=== PATIENT | female | born 1940 | race Caucasian/White ===

== ENCOUNTER → 2017-03-29 | Outpatient (CLI) | payer MEDICARE ==
[2017-03-29 12:14] LABS: APPEARANCE,URINE SLIGHTLY-CLOUDY; BILIRUBIN,URINE NEGATIVE (NEGATIVE); CALCIUM OXALATE CRYSTALS,URINE TOO NUMEROUS TO CNT /HPF; COLOR,URINE YELLOW; GLUCOSE, URINE NEGATIVE (NEGATIVE); KETONES,URINE NEGATIVE (NEGATIVE); LEUKOCYTE ESTERASE,URINE TRACE (NEGATIVE); NITRITE,URINE NEGATIVE (NEGATIVE); PROTEIN,URINE NEGATIVE (NEGATIVE); URINE SPECIFIC GRAVITY 1.023; UROBILINOGEN,URINE NEGATIVE mg/dL (<2.0)
[2017-03-29 12:18] LABS: ABSOLUTE EOSINOPHILS # (AUTO) 0.1 10^3/uL (0.0-0.6); ABSOLUTE LYMPHOCYTES (AUTO) 1.9 10^3/uL (0.5-4.7); ABSOLUTE MONOCYTES (AUTO) 0.4 10^3/uL (0.1-1.4); ABSOLUTE NEUT (AUTO) 2.4 10^3/uL (1.7-8.2); BASOPHILS % (AUTO) 0.9 % (0-2); EOSINOPHILS % (AUTO) 2.7 % (0-6); HEMATOCRIT 36.5 % (36.0-47.0); HEMOGLOBIN 12.3 g/dL (12.0-15.5); LYMPHOCYTES % (AUTO) 39.4 % (13-45); MEAN CORPUSCULAR HEMOGLOBIN 31.1 pg (27.0-33.4); MEAN CORPUSCULAR HGB CONC 33.7 g/dL (32.0-36.0); MEAN CORPUSCULAR VOLUME 92 fl (80-97); MONOCYTES % (AUTO) 7.4 % (3-13); PLATELET COUNT 178 10^3/uL (150-450); RED BLOOD COUNT 3.95 10^6/uL (3.72-5.28); RED CELL DISTRIBUTION WIDTH 13.5 % (11.5-14.0); SEGMENTED NEUTROPHILS % (AUTO) 49.6 % (42-78); TOTAL CELLS COUNTED % (AUTO) 100 %; WHITE BLOOD COUNT 4.8 10^3/uL (4.0-10.5)
--- NOTE | 2017-03-29 12:41 | EKG REPORT ---
SEVERITY:- NORMAL ECG - SINUS RHYTHM : Confirmed by: Sheba Faye 29-Mar-2017 12:40:30
[2017-03-29 12:44] LABS: ANION GAP 10 (5-19); BLOOD UREA NITROGEN 19 mg/dL (7-20); CALCIUM 9.9 mg/dL (8.4-10.2); CARBON DIOXIDE 28 mmol/L (22-30); CHLORIDE 103 mmol/L (98-107); GLUCOSE 86 mg/dL (75-110); POTASSIUM 4.6 mmol/L (3.6-5.0); SODIUM 140.5 mmol/L (137-145)
--- NOTE | 2017-03-29 12:48 | RADIOLOGY REPORT (SQ) ---
EXAM DESCRIPTION: CHEST PA/LATERAL COMPLETED DATE/TIME: 03/29/2017 11:38 am REASON FOR STUDY: PRE OP COMPARISON: None. EXAM PARAMETERS: NUMBER OF VIEWS: two views TECHNIQUE: Digital Frontal and Lateral radiographic views of the chest acquired. RADIATION DOSE: NA LIMITATIONS: none FINDINGS: LUNGS AND PLEURA: Biapical pleural-parenchymal scarring. No fluffy alveolar infiltrates w orrisome for edema or pneumonia. No pleural effusion. No pneumothorax. MEDIASTINUM AND HILAR STRUCTURES: No masses or contour abnormalities. HEART AND VASCULAR STRUCTURES: Heart normal size. No evidence for failure. BONES: Osteopenic. No thoracic compression deformity HARDWARE: None in the chest. OTHER: No other significant finding. IMPRESSION: No acute findings TECHNICAL DOCUMENTATION: JOB ID: [id number] [employer]- All Rights Reserved
== END ==
LOC: OD 10:53
PROVIDERS: ATTEND Orthopaedic Surgery
DX: Z01.810 Encounter for preprocedural cardiovascular examination (principal); Z01.812 Encounter for preprocedural laboratory examination; Z01.818 Encounter for other preprocedural examination
CPT/HCPCS: 36415; 71046; 80048; 81001; 85025; 93005; 93010

== ENCOUNTER 2017-04-22 05:16 | Observation (INO) | payer MEDICARE ==
[~2017-04-22 05:16] MED LIST: CEFAZOLIN SODIUM 2 GM in NORMAL SALINE 100 ML IV PRN; LACTATED RINGERS 1000 ML IV PRN; LIDOCAINE 0.5% INJ-PF (5 MG/ML) 50 ML SDV SUBCUT PRN
[2017-04-22] MEDS ORDERED: BUPIVACAINE INJ/PF LIPOSOME/PF 266 MG/20 ML SDV ONE (06:35)
[2017-04-22] MEDS ORDERED: BUPIVACAINE HCL 0.5%-EPI 1:200000 INJ/PF 30 ML VIAL ONE (06:35)
[2017-04-22] MEDS ORDERED: FENTANYL CITRATE INJ/PF 100 MCG/2 ML AMPUL ONE ×2 (06:38→11:02)
[2017-04-22] MEDS ORDERED: LIDOCAINE 2% INJ-PF (20 MG/ML) 10 ML AMPUL ONE (06:38)
[2017-04-22] MEDS ORDERED: EPHEDRINE SULFATE INJ 50 MG/1 ML AMPULE ONE (06:39)
[2017-04-22] MEDS ORDERED: PROPOFOL INJ 200 MG/20 ML VIAL IV ONE (06:40)
[2017-04-22] MEDS ORDERED: DEXAMETHASONE SOD PHOSPHATE INJ 4 MG/1 ML VIAL ONE (06:40)
[2017-04-22] MEDS ORDERED: ACETAMINOPHEN 100 ML IV ONE (06:40)
[2017-04-22] MEDS ORDERED: ONDANSETRON HCL INJ/PF 4 MG/2 ML SDV ONE (06:40)
[2017-04-22] MEDS ORDERED: MIDAZOLAM 2 MG/2 ML INJ ONE (06:45)
[2017-04-22] MEDS ORDERED: PROMETHAZINE HCL INJ 25 MG/1 ML VIAL IV PRN ×2 (09:33)
[2017-04-22] MEDS ORDERED: MEPERIDINE HCL/PF INJ 25 MG/1 ML DISP.SYRIN IV PRN (09:33)
[2017-04-22] MEDS ORDERED: ONDANSETRON HCL INJ/PF 4 MG/2 ML SDV IV PRN ×2 (09:33→10:58)
[2017-04-22] MEDS ORDERED: DIPHENHYDRAMINE HCL 50 MG/ML VIAL IV PRN (09:33)
[2017-04-22] MEDS ORDERED: FENTANYL CITRATE INJ/PF 100 MCG/2 ML AMPUL IV PRN ×2 (09:33)
[2017-04-22] MEDS ORDERED: DEXTROSE 50%-WATER 25 GM/50 ML DISP.SYRIN IV PRN (10:54)
[2017-04-22] MEDS ORDERED: GLUCAGON,HUMAN RECOMB 1 MG INJ SUBCUT PRN (10:54)
[2017-04-22] MEDS ORDERED: DEXTROSE 40% GEL 15 GM TUBE PO PRN ×2 (10:54)
[2017-04-22] MEDS ORDERED: ACETAMINOPHEN 325 MG TABLET PO PRN (10:58)
[2017-04-22] MEDS ORDERED: OXYCODONE-ACETAMINOPHEN 5-325 MG TABLET PO PRN (11:01)
[2017-04-22] MEDS ORDERED: MORPHINE SULFATE 10 MG/ML INJ IV PRN (11:02)
[2017-04-22] MEDS: FENTANYL CITRATE INJ/PF 100 MCG/2 ML AMPUL IV PRN ×4 (11:03→11:30)
[2017-04-22] MEDS: DEXTROSE 50%-WATER 25 GM/50 ML DISP.SYRIN IV PRN ×4 (11:03→11:30)
--- NOTE | 2017-04-22 11:06 | Operative Report ---
Operative Report DATE OF SURGERY: 04/22/17 PREOPERATIVE DIAGNOSIS: Left glenohumeral joint osteoarthritis POSTOPERATIVE DIAGNOSIS: same OPERATION: Left total shoulder arthroplasty SURGEON: DONALDO JONES ANESTHESIA: GA TISSUE REMOVED OR ALTERED: Humeral head COMPLICATIONS: None ESTIMATED BLOOD LOSS: 250 mL INTRAOPERATIVE FINDINGS: As above PROCEDURE: Arthrex total shoulder systemn Medium glenoid 9mm apex stem 46/18mm humeral head Patient received antibiotics in the preop holding area. Patient was transferred to the OR where the patient was successfully intubated. Patient then was secured in a beachchair position. Left shoulder was prepped and draped in a normal sterile surgical fashion. Once timeout was done identifying the right shoulder the correct site I proceeded to use quarter percent Marcaine with epinephrine and injected in the anticipated incision. I used a 10 blade to status my incision and then used hemostasis with electrocautery. I exposed the deltopectoral interval and proceeded to free the cephalic vein and retracted medially with conjoined tendon and retracted deltoid lateral. I reflected the subscapularis tendon off the lesser tuberosity and tagged it with a Vicryl stitch. I proceeded to release capsule to dislocate the shoulder joint. Visualized the Rotator cuff which was intact and the placed the external guide to pablito where I do my humeral head cut. The guide was saying it was 125 . I marked it with the Bovie and then did a freehand of the the humeral head cut. I then proceeded to broach all way up to size 9. Make sure I was not in varus and make sure that the version was between 30 and 40 using the guide. Once I was satisfied I placed a 8 mm guide with a cap to protect the cuts and proceeded to expose the glenoid. The humerus was then reflected posteriorly and glenoid retractors were placed and the glenoid was exposed. Labrum and superior biceps stump was resected exposing the glenoid. I proceeded then to use the glenoid guide to drill and the center portion of the glenoid. I then proceeded to ream until I had bleeding bone. Also satisfied with the size of the glenoid trial and then proceeded to drill the peg holes. A trial glenoid was applied and then retractors removed and the humeral head was exposed. We placed a trial head and proceeded to test range of motion and stability. Once I was satisfied with the appropriate size used , I proceeded to remove all components. I used bulb irrigation to clean the wound. I first removed the glenoid and cemented it in and wait until cement had cured and hardened. Central peg hole did have bone graft applied to it. Any excess cement was removed. I then proceeded to remove the humeral stem and placed the final stem with the sutures already loaded in it. Of note I had placed 2 drill holes in the lesser tuberosity and fed some of the FiberWire through it using a suture passer. Once the glenoid component and stem was seated I trialed with humeral head one more time and then placed the final humeral head component. Irrigation was done at this point. Proceeded to pass the fiberwire throught the subscapularis tendon. Using arthrex guided I repaired the subscapularis tendon and cut remaining strands We approximated the deltoid interval after removing the retractors and closed the subcutaneous tissue with 0 Vicryl and 2- 0 Vicryl. Exparel had been injected deep and then superficially. [place] were used for skin. The extremity was cleaned and then Xeroform 4 x 4 dressing and ABDs pad was applied. I secured it with Medipore tape and then the drapes were removed. Patient was placed in a sling at that point was then placed in a supine position where the patient was extubated and sent to PACU in a stable condition.
[2017-04-22] MEDS ORDERED: MORPHINE SULFATE 10 MG/ML INJ ONE (11:45)
[2017-04-22] MEDS ORDERED: CEFAZOLIN 2 GM/D5W RTU 2 GM/50 ML RTUPB IV PRN (12:00)
[2017-04-22] MEDS: HYDROMORPHONE HCL INJ/PF 2 MG/ML AMPULE IV PRN ×4 (12:54→20:21)
[2017-04-22] MEDS: RINGERS SOLUTION,LACTATED 1,000 ML IV PRN ×2 (12:56→18:25)
[2017-04-22] MEDS: OXYCODONE-ACETAMINOPHEN 5-325 MG TABLET PO PRN (14:04)
[2017-04-22] MEDS ORDERED: CEFAZOLIN SODIUM 2 GM in NORMAL SALINE 100 ML IV SCH (15:00)
[2017-04-22] MEDS ORDERED: GLYCOPYRROLATE INJ 0.4 MG/2 ML VIAL ONE (15:31)
[2017-04-22] MEDS ORDERED: SUCCINYLCHOLINE CHLORIDE INJ 200 MG/10 ML VIAL ONE (15:31)
[2017-04-22] MEDS ORDERED: NEOSTIGMINE METHYLSULFATE 10 MG/10 ML VIAL ONE (15:31)
[2017-04-22] MEDS ORDERED: VECURONIUM BROMIDE INJ 10 MG VIAL IV ONE (15:31)
[2017-04-22] MEDS: SENNOSIDES/DOCUSATE 8.6-50 MG 1 EACH TABLET PO SCH (18:24)
[2017-04-22] MEDS: PROMETHAZINE HCL INJ 25 MG/1 ML VIAL IV PRN (19:53)
[2017-04-22] MEDS: CELECOXIB 200 MG CAPSULE PO SCH (22:05)
[2017-04-23] MEDS: HYDROMORPHONE HCL INJ/PF 2 MG/ML AMPULE IV PRN ×5 (00:34→15:52)
[2017-04-23 04:57] LABS: HEMATOCRIT 30.4 % (36.0-47.0); HEMOGLOBIN 10.4 g/dL (12.0-15.5); MEAN CORPUSCULAR HEMOGLOBIN 30.9 pg (27.0-33.4); MEAN CORPUSCULAR HGB CONC 34.1 g/dL (32.0-36.0); MEAN CORPUSCULAR VOLUME 91 fl (80-97); PLATELET COUNT 141 10^3/uL (150-450); RED BLOOD COUNT 3.35 10^6/uL (3.72-5.28); RED CELL DISTRIBUTION WIDTH 13.6 % (11.5-14.0); WHITE BLOOD COUNT 11.3 10^3/uL (4.0-10.5)
[2017-04-23 05:15] LABS: ANION GAP 10 (5-19); BLOOD UREA NITROGEN 15 mg/dL (7-20); CALCIUM 8.5 mg/dL (8.4-10.2); CARBON DIOXIDE 27 mmol/L (22-30); CHLORIDE 102 mmol/L (98-107); GLUCOSE 117 mg/dL (75-110); POTASSIUM 4.6 mmol/L (3.6-5.0); SODIUM 138.9 mmol/L (137-145)
[2017-04-23] MEDS: CELECOXIB 200 MG CAPSULE PO SCH (10:58)
[2017-04-23] MEDS: SENNOSIDES/DOCUSATE 8.6-50 MG 1 EACH TABLET PO SCH (10:59)
[2017-04-23] MEDS: OXYCODONE-ACETAMINOPHEN 5-325 MG TABLET PO PRN (11:17)
[2017-04-23] MEDS ORDERED: CEFAZOLIN SODIUM 2 GM in NORMAL SALINE 100 ML IV ONE (13:00)
--- NOTE | 2017-04-23 14:00 | PDOC DISCHARGE SUMMARY ---
General - Admit/Disc Date/PCP Admission Date/Primary Care Provider: 04/22/17 05:16 Discharge Date: 04/23/17 - Discharge Diagnosis (1) Status post total shoulder arthroplasty Is this a current diagnosis for this admission?: Yes - Additional Information Resuscitation Status: Full Code Home Medications: No Home Medications 04/21/17 History of Present Illness Patient complains of: Left shoulder pain History of Present Illness: JOURDAN PEREZ is a 76 year old female With known osteoarthritis of the left shoulder. She had limited range of motion. Crepitus. Pain and palpation of the left shoulder. X-ray showing severe degenerative joint disease with osteophyte formation of the left shoulder. After failed conservative treatment patient elected to proceed with left total shoulder arthroplasty on 04/22/2017 has any numbness or tingling or paresthesias. Hospital Course Hospital Course: Patient underwent left total shoulder arthroplasty yesterday on 04/22/2017. Surgery was uneventful. Patient stayed overnight for pain control and observation. She has not required IV narcotics. She has decent pain control with the Percocet although it causes her some nausea. Denies any numbness or tingling or paresthesias or loss of motor function. Vital signs have been stable. Patient will be discharged today to follow-up in 2 weeks. Physical Exam Vital Signs: Temp Pulse Resp BP Pulse Ox 36.8 C 88 18 142/68 H 97 04/23/17 11:17 04/23/17 11:17 04/23/17 11:17 04/23/17 11:17 04/23/17 11:17 Intake & Output 04/22/17 04/23/17 04/24/17 06:59 06:59 06:59 Intake Total 5200 Output Total 250 Balance 4950 Weight 82.2 kg General appearance: PRESENT: no acute distress Eye exam: PRESENT: EOMI, other - Pinpoint pupils symmetric. ABSENT: conjunctival injection Mouth exam: PRESENT: neck supple Respiratory exam: PRESENT: symmetrical, unlabored. ABSENT: accessory muscle use , tachypnea Pulses: PRESENT: normal radial pulses Vascular exam: PRESENT: normal capillary refill Neurological exam: PRESENT: alert, awake, oriented to person, oriented to place , oriented to time Psychiatric exam: PRESENT: appropriate affect, normal mood Adult Front & Back Image: 1 - Dressing is dry clean and intact. Only one small area with some bloody drainage. Mild swelling postoperatively as expected. No ecchymosis. Tender palpation over the shoulder. She has 5 out of 5 motor distally and good sensation to light touch. Good capillary refill. Good radial pulse. Results Laboratory Results: 04/23/17 04:28 04/23/17 04:28 04/23/17 04/23/17 04:28 04:28 WBC 11.3 H RBC 3.35 L Hgb 10.4 L Hct 30.4 L MCV 91 MCH 30.9 MCHC 34.1 RDW 13.6 Plt Count 141 L Sodium 138.9 Potassium 4.6 Chloride 102 Carbon Dioxide 27 Anion Gap 10 BUN 15 Creatinine 0.85 Est GFR ( Amer) > 60 Est GFR (Non-Af Amer) > 60 Glucose 117 H Calcium 8.5 Status: Image reviewed by me Qualifiers - * PATEINT BEING DISCHARGED WITH ANY OF THE FOLLOWING DIAGNOSIS?: No VTE patient discharged on overlapping Therapy?: No Reason(s) for not prescribing Overlap Therapy:: Not indicated Plan Discharge Plan: Patient is a 76-year-old female who is being discharged today after yesterday undergoing a left total shoulder arthroplasty. Nonweightbearing left upper extremity. Use sling at all times. Okay to change dressing in 5 days and shower after dressing is removed. Structured to do pendulum exercises. Limit external rotation. Follow-up in 10-14 days in the office. Call back if there is any redness erythema or any purulent drainage. Also told to call if any fevers or chills.
[2017-04-23] MEDS: PROMETHAZINE HCL INJ 25 MG/1 ML VIAL IV PRN (15:51)
[2017-04-23 16:02] VITALS: BP 169/76
== END 2017-04-23 16:48 | disposition home or self-care (01) ==
LOC: INTOOBSV 05:16 → INOR 05:16 → 3W 12:31
PROVIDERS: ADMIT Orthopaedic Surgery; ATTEND Orthopaedic Surgery
PROC: 0RRK0JZ Replacement of Left Shoulder Joint with Synthetic Substitute, Open Approach (ICD-10-PCS; principal; 2017-04-22 07:30)
DX: M19.012 Primary osteoarthritis, left shoulder (principal); M24.112 Other articular cartilage disorders, left shoulder; M25.812 Other specified joint disorders, left shoulder
CPT/HCPCS: 23472; 86900; 86901; 36415 ×2; 86850; 85027; 80048; 88304 ×2; 88311; 94799; 97110 ×2; 97167; G0378 ×2; G0379; A9270 ×6; J2250; J3490 ×6; J0690 ×2; J1100; J3010; J1170 ×2; J2550 ×2; J0330; J2405; J7120; J2704; J0131; C9290; G8987; G8988; 01630; J2270

== ENCOUNTER 2017-05-03 17:49 | Inpatient (IN) | payer MEDICARE ==
[~2017-05-03 17:49] MED LIST changes: -CEFAZOLIN SODIUM 2 GM in NORMAL SALINE 100 ML IV PRN; +GLYCOPYRROLATE INJ 0.4 MG/2 ML VIAL ONE; -LACTATED RINGERS 1000 ML IV PRN; -LIDOCAINE 0.5% INJ-PF (5 MG/ML) 50 ML SDV SUBCUT PRN; +NEOSTIGMINE METHYLSULFATE 10 MG/10 ML VIAL ONE; +SUCCINYLCHOLINE CHLORIDE INJ 200 MG/10 ML VIAL ONE; +VECURONIUM BROMIDE INJ 10 MG VIAL IV ONE
[2017-05-03] MEDS ORDERED: ONDANSETRON HCL INJ/PF 4 MG/2 ML SDV IV ONE (19:30)
[2017-05-03] MEDS ORDERED: NORMAL SALINE 1000 ML 1,000 ML IV ONE (19:30)
[2017-05-03] MEDS ORDERED: FENTANYL CITRATE INJ/PF 100 MCG/2 ML AMPUL IV ONE ×2 (19:44→21:20)
--- NOTE | 2017-05-03 19:46 | ER Document Report ---
ED General - General Chief Complaint: Constipation Stated Complaint: ABDOMINAL PAIN Notes: Patient is a 76-year-old female status post left shoulder surgery approximately 2 weeks ago who presents with 18 hours of progressively worsening generalized abdominal pain as well as vomiting. The patient has not had a bowel movement in 8 days per her report and has been trying Colace as well as [id number] laxatives without any improvement. However, she states this morning she had an abrupt onset of severe, constant, generalized abdominal pain worse towards the right lower abdomen. She states that that pain is gotten progressively worse since onset. She notes associated severe vomiting and inability to tolerate and take all day. She denies any history of similar symptoms in the past. She has not seen her general doctor regarding today's concerns. She has no prior history of abdominal surgeries in the past. History is otherwise somewhat limited secondary to the acuity of this patient's presentation. TRAVEL OUTSIDE OF THE [place] IN LAST 30 DAYS: No - Related Data Allergies/Adverse Reactions: codeine Allergy (Verified 04/05/17 10:31) Sulfa (Sulfonamide Antibiotics) Allergy (Verified 04/05/17 10:31) Past Medical History - General Information source: Patient, Relative - Social History Smoking Status: Never Smoker Frequency of alcohol use: None Drug Abuse: None Lives with: Family Family History: Reviewed & Not Pertinent Patient has suicidal ideation: No Patient has homicidal ideation: No - Past Medical History Cardiac Medical History: Denies: Hx Hypercholesterolemia, Hx Hypertension Pulmonary Medical History: Denies: Hx Sleep Apnea Renal/ Medical History: Denies: Hx Peritoneal Dialysis Musculoskeltal Medical History: Reports Hx Arthritis - shoulders, Denies Hx Fibromyalgia, Denies Hx Muscular Dystrophy Traumatic Medical History: Denies: Hx Fractures Past Surgical History: Denies: Hx Appendectomy, Hx Bowel Surgery, Hx Section, Hx Cholecystectomy, Hx Coronary Artery Bypass Graft, Hx Gastric Bypass Surgery, Hx Herniorrhaphy, Hx Hysterectomy, Hx Mastectomy, Hx Pacemaker, Hx Tonsillectomy, Hx Tubal Ligation Review of Systems - Review of Systems Notes: Constitutional: Negative for fever. HENT: Negative for sore throat. Eyes: Negative for visual changes. Cardiovascular: Negative for chest pain. Respiratory: Negative for shortness of breath. Gastrointestinal: Positive for severe abdominal pain and vomiting Genitourinary: Negative for dysuria. Musculoskeletal: Negative for back pain. Skin: Negative for rash. Neurological: Negative for headaches, weakness or numbness. 10 point ROS negative except as marked above and in HPI. Physical Exam - Vital signs Vitals: Resp Pulse Ox 29 H 98 05/03/17 20:31 05/03/17 20:31 Interpretation: Tachycardic, Tachypneic Notes: PHYSICAL EXAMINATION: GENERAL: Ill in appearance, pale, diaphoretic, appears to be in extreme pain HEAD: Atraumatic, normocephalic. EYES: Pupils equal round and reactive to light, extraocular movements intact, sclera anicteric, conjunctiva are normal. ENT: nares patent, oropharynx clear without exudates. Dry mucous membranes. NECK: Normal range of motion, supple without lymphadenopathy LUNGS: Moderate tachypnea. No wheezes or rales. HEART: Regular rate and rhythm without murmurs ABDOMEN: Firm, rigid abdomen. Diffuse involuntary guarding. Worrisome for a surgical abdomen EXTREMITIES: no pitting or edema. No cyanosis. NEUROLOGICAL: No focal neurological deficits. Moves all extremities spontaneously PSYCH: Normal mood, normal affect. SKIN: Pale, cool, diaphoretic skin Course - Re-evaluation Re-evalutation: 05/03/17 19:45 Patient presents with a very worrisome abdominal exam with diffuse abdominal rigidity, involuntary guarding, and diffuse severe tenderness. I am extremely concerned that this patient may have a bowel perforation or very high-grade bowel obstruction. She has been vomiting all day today but has not had a bowel movement in 8 days. However her abdominal exam is very unusual for just constipation. Given this concern, I have immediately requested the patient go to CT scan and will wave waiting for laboratories as this is a very time sensitive diagnosis given her overall very ill appearance and abdominal examination. She is currently critically ill, will require frequent reassessments. I will contact the radiologist as soon as a CT scan is complete so we can review the images and determine if the patient has an acute surgical diagnosis. 05/03/17 20:11 I have spoken to the radiologist community organization director who confirms my concern that the patient does have an acute bowel perforation. There is free air as well as free fluid throughout her abdomen. I immediately contacted Dr. Vazquez, unfortunately he is currently putting a central line in. I relayed to the nurse caring the patient with Dr. Vazquez that this patient is critically ill and his services are needed immediately. Will start IV Zosyn. I have updated the patient and her son the bedside. 05/03/172029 Dr. Vazquez is at the bedside. Patient remains hemodynamically within normal limits but continues to have a surgical abdomen 2100-patient will go to the operating room - Vital Signs Vital signs: Temp Pulse Resp BP Pulse Ox 98.5 F 155 H 14 99/64 L 100 05/04/17 00:52 05/04/17 00:52 05/04/17 02:00 05/04/17 01:40 05/04/17 02:00 - Laboratory Result Diagrams: 05/03/17 20:15 05/03/17 20:15 Laboratory results interpreted by me: 05/03/17 05/03/17 20:15 20:15 WBC 2.4 L Hgb 11.9 L Hct 35.1 L Abs Lymphs (Manual) 0.4 L Carbon Dioxide 17 L BUN 26 H Creatinine 1.26 H Est GFR ( Amer) 50 L Est GFR (Non-Af Amer) 42 L Glucose 147 H Calcium 8.2 L Direct Bilirubin 0.5 H Total Protein 5.7 L Albumin 3.1 L - Diagnostic Test Radiology reviewed: Image reviewed, Reports reviewed Radiology results interpreted by me: 05/03/17 20:12 CT of the pelvis: Concerning for free air and free fluid in the abdomen with associated colonic distention Critical Care Note - Critical Care Note Total time excluding time spent on procedures (mins): 37 Comments: Critical care time spent obtaining history from patient or surrogate, discussions with consultants, development of treatment plan with patient or surrogate, evaluation of patient's response to treatment, examination of patient , ordering and performing treatments and interventions, ordering and review of laboratory studies, re-evaluation of patient's condition, ordering and review of radiographic studies and review of old charts Discharge - Discharge Clinical Impression: Perforated abdominal viscus, Surgical abdomen, Persistent vomiting Condition: Critical Disposition: ADMITTED INPATIENT Admitting Provider: Ceciist Smith Vazquez Unit Admitted: OR
[2017-05-03] MEDS ORDERED: PIPERACILLIN/TAZOBACTAM 3.375 GM VIAL IV ONE (20:10)
--- NOTE | 2017-05-03 20:24 | RADIOLOGY REPORT (SQ) ---
EXAM DESCRIPTION: CT ABD/PELVIS WITH IV ONLY COMPLETED DATE/TIME: 05/03/2017 8:06 pm REASON FOR STUDY: Rigid abdomen, eval perforation, obstruction COMPARISON: None. TECHNIQUE: CT scan of the abdomen and pelvis performed using helical scanning technique with dynamic intravenous contrast injection. No oral contrast. Images reviewed with lung, soft tissue, and bone windows. Reconstructed coronal and sagittal MPR images reviewed. Delayed images for evaluation of the urinary system also acquired. All images stored on PACS. All CT scanners at this facility use dose modulation, iterative reconstruction, and/or weight based d osing when appropriate to reduce radiation dose to as low as reasonably achievable (ALARA). [facility]: Dose Right [facility]: CareDose [facility]: Dose Right [facility]: Teradose 4D [facility]: [employer] Safety Step CONTRAST TYPE AND DOSE: contrast/concentration: Isovue 370.00 mg/ml; Total Contrast Delivered: 81.0 ml; Total Saline Delivered: 63.0 ml RENAL FUNCTION: BUN 15 creatinine 0.85 on 04/23/2017 RADIATION DOSE: CT Rad equipment meets quality standard of care and radiation dose reduction techniq ues were employed. CTDIvol: 8.8 - 12.4 mGy. DLP: 1211 mGy-cm.. LIMITATIONS: None. FINDINGS: LOWER CHEST: No significant findings. No nodules or infiltrates. LIVER: Normal size. No masses. No dilated ducts. SPLEEN: Normal size. No focal lesions. PANCREAS: No masses. No significant calcifications. No adjacent inflammation or peripancreatic fluid collections. Pancreatic duct not dilated. GALLBLADDER: No identified stones by CT criteria. No inflammatory changes to suggest cholecystitis. ADRENAL GLANDS: No significant masses or asymmetry. RIGHT KIDNEY AND URETER: No solid masses. No significant calcifications. No hydronephrosis or hyd roureter. LEFT KIDNEY AND URETER: No solid masses. No significant calcifications. No hydronephrosis or hydr oureter. AORTA AND VESSELS: No aneurysm. No dissection. Renal arteries, SMA, celiac without stenosis. RETROPERITONEUM: No retroperitoneal adenopathy, hemorrhage or masses. BOWEL AND PERITONEAL CAVITY: There is free air and fluid in the peritoneal cavity. No bowel mass is seen. APPENDIX: Not identified. PELVIS: No mass. No free fluid. Normal bladder. ABDOMINAL WALL: No masses. No hernias. BONES: No significant or acute findings. OTHER: No other significant finding. IMPRESSION: There is free air and fluid in the abdomen suggestive of gastrointestinal perforation. Site is uncertain. TECHNICAL DOCUMENTATION: JOB ID: [id number] Quality ID # [id number]: Final reports with documentation of one or more dose reduction techniques (e.g., Au tomated exposure control, adjustment of the mA and/or kV according to patient size, use of iterative reconstruction technique) 2010 [employer]- All Rights Reserved Reading location - IP/workstation name: [email or web address]
[2017-05-03 20:34] LABS: HEMATOCRIT 35.1 % (36.0-47.0); HEMOGLOBIN 11.9 g/dL (12.0-15.5); MEAN CORPUSCULAR HEMOGLOBIN 30.8 pg (27.0-33.4); MEAN CORPUSCULAR HGB CONC 33.9 g/dL (32.0-36.0); MEAN CORPUSCULAR VOLUME 91 fl (80-97); PLATELET COUNT 274 10^3/uL (150-450); RED BLOOD COUNT 3.86 10^6/uL (3.72-5.28); RED CELL DISTRIBUTION WIDTH 13.4 % (11.5-14.0); WHITE BLOOD COUNT 2.4 10^3/uL (4.0-10.5)
[2017-05-03 20:51] LABS: ALBUMIN 3.1 g/dL (3.5-5.0); ALKALINE PHOSPHATASE 55 U/L (38-126); BILIRUBIN,DIRECT 0.5 mg/dL (0.0-0.4); BILIRUBIN,TOTAL 0.7 mg/dL (0.2-1.3); BLOOD UREA NITROGEN 26 mg/dL (7-20); CALCIUM 8.2 mg/dL (8.4-10.2); GLUCOSE 147 mg/dL (75-110); LIPASE 31.7 U/L (23-300); POTASSIUM 3.6 mmol/L (3.6-5.0); TOTAL PROTEIN 5.7 g/dL (6.3-8.2)
--- NOTE | 2017-05-03 20:54 | PDOC H&P ---
History of Present Illness Admission Date/PCP: 05/03/17 Patient complains of: severe abdominal pains with N/V History of Present Illness: JOURDAN PEREZ is a 76 year old female suddenly c/o severe diffuse abdominal pains early this morning associated with N/V. Ct abd/pelvis showed free air. Past Medical History Cardiac Medical History: Denies: Hyperlipidema, Hypertension Pulmonary Medical History: Denies: Sleep Apnea Musculoskeltal Medical History: Reports: Arthritis - shoulders Denies: Fibromyalgia Past Surgical History Past Surgical History: Reports: Other - left shoulder surgery by Dr Valdez . Denies: Amputation, Appendectomy, Section, Cholecystectomy, Coronary Artery Bypass Graft, Gastric Bypass Surgery, Herniorrhaphy, Hysterectomy, Mastectomy, Pacemaker, Tonsillectomy, Tubal Ligation Social History Smoking Status: Unknown if Ever Smoked Frequency of Alcohol Use: Rare Drugs: None Hx Prescription Drug Abuse: No Family History Parental Family History Reviewed: Yes Children Family History Reviewed: No Sibling(s) Family History Reviewed.: No Medication/Allergy Home Medications: Ondansetron HCl [Zofran 4 mg Tablet] 1 - 2 tab PO Q6HP PRN #20 tablet 04/23/17 Oxycodone HCl/Acetaminophen [Percocet 5-325 mg Tablet] 1 - 2 tab PO ASDIR PRN # 40 tablet 04/23/17 Allergies/Adverse Reactions: codeine Allergy (Verified 04/05/17 10:31) Sulfa (Sulfonamide Antibiotics) Allergy (Verified 04/05/17 10:31) Review of Systems Constitutional: PRESENT: anorexia Eyes: PRESENT: other - no viz/hearing changes Cardiovascular: PRESENT: other - no chest pains, SOB Gastrointestinal: PRESENT: abdominal pain - severe, nausea, vomiting Genitourinary: PRESENT: other - no dysuria Musculoskeletal: PRESENT: other - left shoulder surgery Neurological: PRESENT: other - no seizures Psychiatric: PRESENT: anxiety Hematologic/Lymphatic: PRESENT: other - no easy bruising Physical Exam Vital Signs: Intake & Output 05/02/17 05/03/17 05/04/17 06:59 06:59 06:59 Weight 73.936 kg General appearance: PRESENT: severe distress Eye exam: PRESENT: conjunctiva pink Mouth exam: PRESENT: dry mucosa Neck exam: PRESENT: full ROM Respiratory exam: PRESENT: clear to auscultation deonna Cardiovascular exam: PRESENT: tachycardia Pulses: PRESENT: normal radial pulses Vascular exam: PRESENT: normal capillary refill GI/Abdominal exam: PRESENT: rigid, tenderness Rectal exam: PRESENT: deferred Extremities exam: PRESENT: full ROM, other - left shoulder janene in place Musculoskeletal exam: PRESENT: ambulatory Neurological exam: PRESENT: alert, oriented to person, oriented to place, oriented to time, oriented to situation Psychiatric exam: PRESENT: anxious Skin exam: PRESENT: normal color, warm Results Laboratory Results: 05/03/17 20:15 Seg Neutrophils % Not Reportable Lymphocytes % Not Reportable Monocytes % Not Reportable Eosinophils % Not Reportable Basophils % Not Reportable Absolute Neutrophils Not Reportable Absolute Lymphocytes Not Reportable Absolute Monocytes Not Reportable Absolute Eosinophils Not Reportable Absolute Basophils Not Reportable Impressions: Abdomen/Pelvis CT 05/03/17 19:43 IMPRESSION: There is free air and fluid in the abdomen suggestive of gastrointestinal perforation. Site is uncertain. Assessment & Plan - Diagnosis (1) Perforated abdominal viscus Is this a current diagnosis for this admission?: Yes - Time Time Spent: 30 to 50 Minutes - Inpatient Certification Medical Necessity: Need For IV Fluids, Need for Pain Control, Need for IV Antibiotics, Need for Surgery - Plan Summary Plan Summary: Hydrate IV antibiotics For Exploratory laparotomy repair of perforation
[2017-05-03 20:59] LABS: ANION GAP 18 (5-19); CARBON DIOXIDE 17 mmol/L (22-30); CHLORIDE 104 mmol/L (98-107); SODIUM 138.6 mmol/L (137-145)
[2017-05-03] MEDS ORDERED: FENTANYL CITRATE INJ/PF 250 MCG/5 ML AMPULE ONE (21:04)
[2017-05-03] MEDS ORDERED: MIDAZOLAM 2 MG/2 ML INJ ONE (21:04)
[2017-05-03] MEDS ORDERED: LIDOCAINE 2% INJ-PF (20 MG/ML) 10 ML AMPUL ONE (21:04)
[2017-05-03] MEDS ORDERED: EPHEDRINE SULFATE INJ 50 MG/1 ML AMPULE ONE (21:05)
[2017-05-03] MEDS ORDERED: DEXAMETHASONE SOD PHOSPHATE INJ 4 MG/1 ML VIAL ONE (21:05)
[2017-05-03] MEDS ORDERED: ACETAMINOPHEN 100 ML IV ONE (21:05)
[2017-05-03] MEDS ORDERED: PROPOFOL INJ 200 MG/20 ML VIAL IV ONE (21:05)
[2017-05-03] MEDS ORDERED: ONDANSETRON HCL INJ/PF 4 MG/2 ML SDV ONE (21:05)
[2017-05-03 21:11] LABS: ABSOLUTE LYMPHOCYTES# (MANUAL) 0.4 10^3/uL (0.5-4.7); ABSOLUTE MONOCYTES # (MANUAL) 0.2 10^3/uL (0.1-1.4); ABSOLUTE NEUTROPHILS# (MANUAL) 1.8 10^3/uL (1.7-8.2); BASOPHILS % (MANUAL) 0 % (0-2); EOSINOPHILS % (MANUAL) 0 % (0-6); LYMPHOCYTES % (MANUAL) 16 % (13-45); MONOCYTES % (MANUAL) 7 % (3-13); SEGMENTED NEUTROPHILS % (MAN) 77 % (42-78); TOTAL CELLS COUNTED 100
[2017-05-03] MEDS ORDERED: FENTANYL CITRATE INJ/PF 100 MCG/2 ML AMPUL ONE (21:11)
[2017-05-03 21:12] LABS: PLATELET COMMENT ADEQUATE; TOXIC GRANULATION SLIGHT
[2017-05-03 21:18] LABS: ALANINE AMINOTRANSFERASE 26 U/L (9-52)
[2017-05-03 21:29] LABS: ASPARTATE AMINO TRANSFERASE 36 U/L (14-36)
[2017-05-03] MEDS ORDERED: PROMETHAZINE HCL INJ 25 MG/1 ML VIAL IV PRN ×2 (22:53)
[2017-05-03] MEDS ORDERED: FENTANYL CITRATE INJ/PF 100 MCG/2 ML AMPUL IV PRN ×3 (22:53)
[2017-05-03] MEDS ORDERED: DIPHENHYDRAMINE HCL 50 MG/ML VIAL IV PRN (22:53)
[2017-05-03] MEDS ORDERED: ONDANSETRON HCL INJ/PF 4 MG/2 ML SDV IV PRN (22:53)
[2017-05-03] MEDS ORDERED: MEPERIDINE HCL/PF INJ 25 MG/1 ML DISP.SYRIN IV PRN (22:53)
[2017-05-03] MEDS ORDERED: METRONIDAZOLE 500 MG/NS RTU 100 ML IV ONE (23:48)
[2017-05-04] MEDS ORDERED: PROPOFOL 100 ML IV ONE (00:38)
[2017-05-04] MEDS ORDERED: DEXTROSE 40% GEL 15 GM TUBE PO PRN ×2 (01:24)
[2017-05-04] MEDS ORDERED: DEXTROSE 50%-WATER 25 GM/50 ML DISP.SYRIN IV PRN ×2 (01:24)
[2017-05-04] MEDS ORDERED: NORMAL SALINE 1000 ML 1,000 ML IV ONE (01:24)
[2017-05-04] MEDS ORDERED: GLUCAGON,HUMAN RECOMB 1 MG INJ SUBCUT PRN (01:24)
[2017-05-04 01:41] LABS: ARTERIAL BLOOD BASE EXCESS -6.2 mmol/L; ARTERIAL BLOOD H2CO3 1.04 mmol/L (1.05-1.35); ARTERIAL BLOOD HCO3 18.6 mmol/L (20-26); ARTERIAL BLOOD O2 SATURATION 95.9 % (94-98); ARTERIAL BLOOD PCO2 34.5 mmHg (35-45); ARTERIAL BLOOD PH 7.35 (7.35-7.45); ARTERIAL BLOOD PO2 83.5 mmHg (80-100); ARTERIAL BLOOD TOTAL CO2 19.7 mmol/L (21-25)
[2017-05-04 01:43] LABS: ARTERIAL BLOOD FIO2 35%
[2017-05-04 02:10] LABS: APPEARANCE,URINE CLEAR; BILIRUBIN,URINE NEGATIVE (NEGATIVE); COLOR,URINE YELLOW; GLUCOSE, URINE NEGATIVE (NEGATIVE); KETONES,URINE NEGATIVE (NEGATIVE); LEUKOCYTE ESTERASE,URINE NEGATIVE (NEGATIVE); NITRITE,URINE NEGATIVE (NEGATIVE); PROTEIN,URINE NEGATIVE (NEGATIVE); URINE SPECIFIC GRAVITY 1.039
--- NOTE | 2017-05-04 02:49 | OPERATIVE REPORT E ---
Operative Report NAME: JOURDAN PEREZ : 1940 AGE: 76Y DATE OF SURGERY: 05/03/2017 ROOM: 612 PREOPERATIVE DIAGNOSIS: PERFORATED BOWEL. POSTOPERATIVE DIAGNOSIS: PERFORATED SIGMOID COLON. PROCEDURE: The procedure done was exploratory laparotomy, resection of sigmoid colon, sigmoid colostomy, and a Bianchi pouch. SURGEON: ZOEY XIE M.D. ANESTHESIA: General. INDICATION: This 76-year-old female complained of severe, diffuse, lower abdominal pains early this morning associated with nausea and vomiting. She went to the emergency room, where a CT scan of the abdomen and pelvis revealed free air. DESCRIPTION OF PROCEDURE: After adequate general anesthesia, the patient was placed in supine position and the abdomen prepped and draped in the usual sterile fashion. The patient had mild hypotension and responded to IV fluids. Appropriate timeout was then called. Next, a midline incision was made from the epigastric area to just below the umbilicus. The abdominal cavity was then entered. There was a lot of air that released on opening the peritoneum. There was also a lot of food debris and yellowish fluid. No evidence of perforation in the gastric duodenal area. Further exploration of the pelvic area revealed more debris, and finally, the sigmoid colon was palpated and there were hard stools stools in the sigmoid colon just before the rectum. There is a large perforation in the anti mesenteric area roughly measuring about 2 cm in diameter. The abdominal incision was then further extended distally to just about the symphysis pubis to gain better exposure On further exploration, there was at least 1 large, formed stool noted in the abdominal cavity, roughly measuring about 2.5 cm in diameter. Smaller stools were noted in the pelvic area. The abdominal cavity was then copiously irrigated with at least 80 L of saline until the return flow is clear. Next, the sigmoid colon was then divided proximally about 15 cm from the perforation, with the use of a SREEDHAR. The mesentery was then divided with the use of LigaSure. The sigmoid colon was then divided just above the peritoneal reflection using a Contour stapling device. One end of the staple site has about less then a half centimeter of opening which was closed with 2-0 prolene which was cut long so as to be a guide when colostomy is put back. There was a lot of stool and fluid around the pelvis. This most likely a fairly recent perforation. Following this, an end-sigmoid colostomy was then prepared by dissecting through the white line of Toldt and dividing the mesentery to allow lifting up of the end sigmoid above the skin. Prior to closing the fascia, the colostomy site was prepared by removing the circumferential skin, about 3 cm in diameter, and dividing the fascia and muscle in a cruciate fashion, allowing at least 2 fingers through the defect. Next, the sigmoid was then passed through the defect and a good length of bowel above the skin. Following this, the fascia incision was then closed with running suture using #1 single-arm PDS starting at both ends and tying the 2 sutures just below the umbilicus. The incision was actually from the xiphoid down to the symphysis pubis. The subcutaneous layer was then irrigated, and then the skin was closed with janene. Telfa harlan soaked in Betadine were placed in between the staple lines. A dressing was placed over the main incision site Attention was then directed to the preparation of the colostomy.There was extra sigmoid colon that was further trimmed, and the colostomy was then matured by suturing full thickness of the colonic edge to the dermis in circumferential fashion. The colostomy was viable . A colostomy bag was placed over the sigmoid. Sterile dressings were placed over the incision site. The patient tolerated the procedure well. Needle, instrument, and sponge counts were all correct. Estimated blood loss about 100 mL. Patient transferred to the intensive care unit still intubated, in guarded condition. DICTATING PHYSICIAN: ZOEY XIE M.D. [id number] PHY#: [id number] ID: [id number] JOB#: [id number] ACCT: [id number] cc:ZOEY XIE M.D. > MTDD
--- NOTE | 2017-05-04 04:12 | RADIOLOGY REPORT (SQ) ---
EXAM DESCRIPTION: CHEST SINGLE VIEW CLINICAL HISTORY: 76 years Female, ET placement COMPARISON: 2.5.18. CT, 05/03/2017, report only. NUMBER OF VIEWS/TECHNIQUE: 1/AP LIMITATIONS: None. FINDINGS: Small free air under the right hemidiaphragm consistent with CT one day prior. Adequate appearing endotracheal tube tip is 3.8 cm from the farhan, likely adequate appearing enteric tube partially obscured distally, normal cardiac silhouette, left proximal humeral arthroplasty, and intact bony thorax. IMPRESSION: 1. Small free air under the right hemidiaphragm consistent with CT from one evening prior. 2. Interval intubation.
[2017-05-04] MEDS ORDERED: FENTANYL CITRATE INJ/PF 100 MCG/2 ML AMPUL ONE (04:25)
[2017-05-04] MEDS: FENTANYL CITRATE INJ/PF 100 MCG/2 ML AMPUL INJ PRN ×4 (04:26→15:03)
[2017-05-04] MEDS: NORMAL SALINE 1000 ML 1,000 ML IV PRN ×4 (04:27→20:35)
[2017-05-04 04:51] LABS: ABSOLUTE LYMPHOCYTES (AUTO) 1.1 10^3/uL (0.5-4.7); ABSOLUTE MONOCYTES (AUTO) 0.4 10^3/uL (0.1-1.4); ABSOLUTE NEUT (AUTO) 4.1 10^3/uL (1.7-8.2); BASOPHILS % (AUTO) 0.1 % (0-2); HEMATOCRIT 32.7 % (36.0-47.0); HEMOGLOBIN 10.7 g/dL (12.0-15.5); LYMPHOCYTES % (AUTO) 20.1 % (13-45); MEAN CORPUSCULAR HEMOGLOBIN 30.2 pg (27.0-33.4); MEAN CORPUSCULAR HGB CONC 32.7 g/dL (32.0-36.0); MEAN CORPUSCULAR VOLUME 92 fl (80-97); MONOCYTES % (AUTO) 6.8 % (3-13); PLATELET COUNT 274 10^3/uL (150-450); RED BLOOD COUNT 3.54 10^6/uL (3.72-5.28); RED CELL DISTRIBUTION WIDTH 13.7 % (11.5-14.0); TOTAL CELLS COUNTED % (AUTO) 100 %
[2017-05-04 04:55] LABS: WHITE BLOOD COUNT 5.6 10^3/uL (4.0-10.5)
[2017-05-04] MEDS: METRONIDAZOLE 500 MG/NS RTU 100 ML IV SCH ×4 (05:07→23:42)
[2017-05-04] MEDS: ONDANSETRON HCL INJ/PF 4 MG/2 ML SDV IV PRN (05:15)
[2017-05-04 05:27] LABS: ALANINE AMINOTRANSFERASE 39 U/L (9-52); ALBUMIN 2.4 g/dL (3.5-5.0); ALKALINE PHOSPHATASE 45 U/L (38-126); ANION GAP 15 (5-19); ASPARTATE AMINO TRANSFERASE 39 U/L (14-36); BILIRUBIN,DIRECT 0.3 mg/dL (0.0-0.4); BILIRUBIN,TOTAL 0.3 mg/dL (0.2-1.3); BLOOD UREA NITROGEN 25 mg/dL (7-20); CALCIUM 7.6 mg/dL (8.4-10.2); CARBON DIOXIDE 16 mmol/L (22-30); CHLORIDE 117 mmol/L (98-107); GLUCOSE 137 mg/dL (75-110); POTASSIUM 3.6 mmol/L (3.6-5.0); TOTAL PROTEIN 4.5 g/dL (6.3-8.2)
[2017-05-04] MEDS: PROPOFOL 100 ML IV PRN ×3 (06:31→21:44)
[2017-05-04 06:54] LABS: ARTERIAL BLOOD BASE EXCESS -5.4 mmol/L; ARTERIAL BLOOD HCO3 18.3 mmol/L (20-26); ARTERIAL BLOOD PO2 154.7 mmHg (80-100); ARTERIAL BLOOD TOTAL CO2 19.3 mmol/L (21-25)
[2017-05-04 06:55] LABS: ARTERIAL BLOOD FIO2 35%
[2017-05-04] MEDS: CIPROFLOXACIN 400 MG/D5W RTU 400 MG/200 ML RTUPB IV SCH ×2 (09:43→21:05)
[2017-05-04] MEDS: FAMOTIDINE INJ/PF 20 MG/2 ML SDV IV SCH ×2 (09:57→21:04)
[2017-05-04] MEDS ORDERED: ENOXAPARIN SODIUM INJ 40 MG/0.4 ML DISP.SYRIN SUBCUT SCH (10:00)
[2017-05-04] MEDS: ENOXAPARIN SODIUM INJ 40 MG/0.4 ML DISP.SYRIN SUBCUT SCH (13:01)
--- NOTE | 2017-05-04 15:30 | PDOC CONSULTATION ---
Consultation Consult Date: 05/04/17 Attending physician:: ZOEY XIE Consult reason:: resp failure History of Present Illness Admission Date/PCP: 05/03/17 21:12 History of Present Illness: JOURDAN PEREZ is a 76 year old female suddenly c/o severe diffuse abdominal pains early this morning associated with N/V. Ct abd/pelvis showed free air.Patient was subsequently taken to the operating room for a perforation of viscus and is currently in the ICU intubated and sedated. Past Medical History Cardiac Medical History: Denies: Hyperlipidema, Hypertension Pulmonary Medical History: Denies: Sleep Apnea Musculoskeltal Medical History: Reports: Arthritis - shoulders Denies: Fibromyalgia Past Surgical History Past Surgical History: Reports: Other - left shoulder surgery by Dr Valdez . Denies: Amputation, Appendectomy, Section, Cholecystectomy, Coronary Artery Bypass Graft, Gastric Bypass Surgery, Herniorrhaphy, Hysterectomy, Mastectomy, Pacemaker, Tonsillectomy, Tubal Ligation Social History Lives with: Family Smoking Status: Never Smoker Frequency of Alcohol Use: Occasional Hx Recreational Drug Use: No Drugs: None Hx Prescription Drug Abuse: No - Advance Directive Resuscitation Status: Full Code Family History Parental Family History Reviewed: No Children Family History Reviewed: No Sibling(s) Family History Reviewed.: No Medication/Allergy Home Medications: Ibuprofen [Motrin 800 mg Tablet] 800 mg PO Q8HP PRN 05/04/17 Oxycodone HCl/Acetaminophen [Percocet 5-325 mg Tablet] 1 tab PO Q4HP PRN Allergies/Adverse Reactions: codeine Allergy (Verified 04/05/17 10:31) Sulfa (Sulfonamide Antibiotics) Allergy (Verified 04/05/17 10:31) Review of Systems ROS unobtainable: Due to endotracheal tube Physical Exam Vital Signs: Temp Pulse Resp BP Pulse Ox 98.6 F 155 H 23 H 105/61 100 05/04/17 06:00 05/04/17 00:52 05/04/17 06:00 05/04/17 05:59 05/04/17 06:00 Intake & Output 05/03/17 05/04/17 05/05/17 06:59 06:59 06:59 Intake Total 34603 Output Total 87091 Balance 1285 Weight 77.2 kg General appearance: PRESENT: no acute distress, disheveled, well-developed. ABSENT: cooperative Head exam: PRESENT: atraumatic, normocephalic Eye exam: PRESENT: conjunctiva pale. ABSENT: EOMI, nystagmus, periorbital swelling, scleral icterus Mouth exam: PRESENT: dry mucosa, neck supple, tongue midline, other - ET tube in place Neck exam: ABSENT: carotid bruit, JVD, lymphadenopathy, thyromegaly, tracheal deviation, tracheostomy Respiratory exam: PRESENT: decreased breath sounds, prolonged expiratory phas, rales, rhonchi, symmetrical, unlabored. ABSENT: retraction, stridor, tachypnea Cardiovascular exam: PRESENT: RRR, +S1, +S2 Pulses: PRESENT: normal radial pulses GI/Abdominal exam: PRESENT: other - Status post surgery with large midline incision Extremities exam: ABSENT: calf tenderness, clubbing Musculoskeletal exam: ABSENT: ambulatory, deformity, dislocation Neurological exam: ABSENT: alert, oriented to person Skin exam: PRESENT: dry, warm Results Laboratory Results: 05/04/17 04:03 05/04/17 04:03 05/04/17 05/04/17 05/04/17 01:07 01:42 04:03 WBC RBC Hgb Hct MCV MCH MCHC RDW Plt Count Seg Neutrophils % Lymphocytes % Monocytes % Eosinophils % Basophils % Absolute Neutrophils Absolute Lymphocytes Absolute Monocytes Absolute Eosinophils Absolute Basophils Carbonic Acid 1.04 L HCO3/H2CO3 Ratio 17:1 ABG pH 7.35 ABG pCO2 34.5 L ABG pO2 83.5 ABG HCO3 18.6 L ABG O2 Saturation 95.9 ABG Base Excess -6.2 FiO2 35% Sodium Potassium Chloride Carbon Dioxide Anion Gap BUN Creatinine Est GFR ( Amer) Est GFR (Non-Af Amer) Glucose Calcium Total Bilirubin AST ALT Alkaline Phosphatase Total Protein Albumin Triglycerides 116 Urine Color YELLOW Urine Appearance CLEAR Urine pH 5.0 Ur Specific [place] 1.039 Urine Protein NEGATIVE Urine Glucose (UA) NEGATIVE Urine Ketones NEGATIVE Urine Blood NEGATIVE Urine Nitrite NEGATIVE Ur Leukocyte Esterase NEGATIVE Urine WBC (Auto) 5 Urine RBC (Auto) 2 05/04/17 05/04/17 05/04/17 04:03 04:03 06:26 WBC 5.6 D RBC 3.54 L Hgb 10.7 L Hct 32.7 L MCV 92 MCH 30.2 MCHC 32.7 RDW 13.7 Plt Count 274 Seg Neutrophils % 73.0 Lymphocytes % 20.1 Monocytes % 6.8 Eosinophils % 0.0 Basophils % 0.1 Absolute Neutrophils 4.1 Absolute Lymphocytes 1.1 Absolute Monocytes 0.4 Absolute Eosinophils 0.0 Absolute Basophils 0.0 Carbonic Acid 0.90 L HCO3/H2CO3 Ratio 20:1 ABG pH 7.40 ABG pCO2 30.0 L ABG pO2 154.7 H ABG HCO3 18.3 L ABG O2 Saturation 99.0 H ABG Base Excess -5.4 FiO2 35% Sodium 148.0 H Potassium 3.6 Chloride 117 H Carbon Dioxide 16 L Anion Gap 15 BUN 25 H Creatinine 1.23 Est GFR ( Amer) 52 L Est GFR (Non-Af Amer) 43 L Glucose 137 H Calcium 7.6 L Total Bilirubin 0.3 AST 39 H ALT 39 Alkaline Phosphatase 45 Total Protein 4.5 L Albumin 2.4 L Triglycerides Urine Color Urine Appearance Urine pH Ur Specific [place] Urine Protein Urine Glucose (UA) Urine Ketones Urine Blood Urine Nitrite Ur Leukocyte Esterase Urine WBC (Auto) Urine RBC (Auto) Impressions: Abdomen/Pelvis CT 05/03/17 19:43 IMPRESSION: There is free air and fluid in the abdomen suggestive of gastrointestinal perforation. Site is uncertain. Chest X-Ray 05/04/17 00:00 IMPRESSION: 1. Small free air under the right hemidiaphragm consistent with CT from one evening prior. 2. Interval intubation. Assessment & Plan - Diagnosis (1) Metabolic acidosis Is this a current diagnosis for this admission?: Yes Plan: Labs- All tests 24 hr 05/03/17 05/04/17 05/04/17 20:15 04:03 06:26 ABG pH 7.40 ABG pCO2 30.0 L ABG pO2 154.7 H FiO2 35% Carbon Dioxide 17 L 16 L BUN 25 H Creatinine 1.23 (2) Perforated abdominal viscus Is this a current diagnosis for this admission?: Yes Plan: As per surgery (3) Renal failure Qualifiers: Renal failure chronicity: unspecified chronicity Qualified Code(s): N19 - Unspecified kidney failure Is this a current diagnosis for this admission?: Yes (4) Respiratory failure Is this a current diagnosis for this admission?: Yes Plan: acidotic post op - Time Total Critical Time (Minutes): 55
--- NOTE | 2017-05-04 19:42 | PDOC PROGRESS REPORT ---
Subjective Progress Note for:: 05/04/17 Subjective:: Still intubated and sedated Reason For Visit: PERFORATED SIGMOID COLON Physical Exam Vital Signs: Temp Pulse Resp BP Pulse Ox 100.0 F 113 H 17 101/60 96 05/04/17 18:00 05/04/17 18:00 05/04/17 18:29 05/04/17 18:29 05/04/17 18:29 Intake & Output 05/03/17 05/04/17 05/05/17 06:59 06:59 06:59 Intake Total 73023 2317 Output Total 68344 375 Balance 1285 1940 Weight 77.2 kg 77.2 kg Exam: Abdomen is soft with some rt sided mild tenderness. Colostomy viable. NGT small amount of drainage Results Laboratory Results: 05/04/17 04:03 05/04/17 04:03 05/04/17 05/04/17 05/04/17 01:07 01:42 04:03 WBC RBC Hgb Hct MCV MCH MCHC RDW Plt Count Seg Neutrophils % Lymphocytes % Monocytes % Eosinophils % Basophils % Absolute Neutrophils Absolute Lymphocytes Absolute Monocytes Absolute Eosinophils Absolute Basophils Carbonic Acid 1.04 L HCO3/H2CO3 Ratio 17:1 ABG pH 7.35 ABG pCO2 34.5 L ABG pO2 83.5 ABG HCO3 18.6 L ABG O2 Saturation 95.9 ABG Base Excess -6.2 FiO2 35% Sodium Potassium Chloride Carbon Dioxide Anion Gap BUN Creatinine Est GFR ( Amer) Est GFR (Non-Af Amer) Glucose Calcium Total Bilirubin AST ALT Alkaline Phosphatase Total Protein Albumin Triglycerides 116 Urine Color YELLOW Urine Appearance CLEAR Urine pH 5.0 Ur Specific [place] 1.039 Urine Protein NEGATIVE Urine Glucose (UA) NEGATIVE Urine Ketones NEGATIVE Urine Blood NEGATIVE Urine Nitrite NEGATIVE Ur Leukocyte Esterase NEGATIVE Urine WBC (Auto) 5 Urine RBC (Auto) 2 05/04/17 05/04/17 05/04/17 04:03 04:03 06:26 WBC 5.6 D RBC 3.54 L Hgb 10.7 L Hct 32.7 L MCV 92 MCH 30.2 MCHC 32.7 RDW 13.7 Plt Count 274 Seg Neutrophils % 73.0 Lymphocytes % 20.1 Monocytes % 6.8 Eosinophils % 0.0 Basophils % 0.1 Absolute Neutrophils 4.1 Absolute Lymphocytes 1.1 Absolute Monocytes 0.4 Absolute Eosinophils 0.0 Absolute Basophils 0.0 Carbonic Acid 0.90 L HCO3/H2CO3 Ratio 20:1 ABG pH 7.40 ABG pCO2 30.0 L ABG pO2 154.7 H ABG HCO3 18.3 L ABG O2 Saturation 99.0 H ABG Base Excess -5.4 FiO2 35% Sodium 148.0 H Potassium 3.6 Chloride 117 H Carbon Dioxide 16 L Anion Gap 15 BUN 25 H Creatinine 1.23 Est GFR ( Amer) 52 L Est GFR (Non-Af Amer) 43 L Glucose 137 H Calcium 7.6 L Total Bilirubin 0.3 AST 39 H ALT 39 Alkaline Phosphatase 45 Total Protein 4.5 L Albumin 2.4 L Triglycerides Urine Color Urine Appearance Urine pH Ur Specific [place] Urine Protein Urine Glucose (UA) Urine Ketones Urine Blood Urine Nitrite Ur Leukocyte Esterase Urine WBC (Auto) Urine RBC (Auto) Impressions: Abdomen/Pelvis CT 05/03/17 19:43 IMPRESSION: There is free air and fluid in the abdomen suggestive of gastrointestinal perforation. Site is uncertain. Chest X-Ray 05/04/17 00:00 IMPRESSION: 1. Small free air under the right hemidiaphragm consistent with CT from one evening prior. 2. Interval intubation. 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 Not ready to extubate. Hopefully tomorrow Continue hydration. Urine output decreased immediately post op but improved with hydration Start DVT prophylaxis this pm Continue IV antibiotics
[2017-05-04] MEDS ORDERED: ACETAMINOPHEN 325 MG TABLET PO PRN (20:05)
[2017-05-04] MEDS ORDERED: NORMAL SALINE 500 ML IV ONE (20:30)
[2017-05-04] MEDS: ACETAMINOPHEN 650 MG SUPP.RECT PR PRN (21:03)
[2017-05-04] MEDS: POTASSI CL 20 MEQ/50 ML RIDER 20 MEQ/50 ML RTUPB IV SCH ×2 (21:03→22:27)
[2017-05-04 21:06] LABS: ANION GAP 9 (5-19); BLOOD UREA NITROGEN 33 mg/dL (7-20); CARBON DIOXIDE 18 mmol/L (22-30); CHLORIDE 115 mmol/L (98-107); GLUCOSE 115 mg/dL (75-110); POTASSIUM 4.4 mmol/L (3.6-5.0); SODIUM 141.6 mmol/L (137-145)
[2017-05-04] MEDS ORDERED: CALCIUM GLUCONATE 1000 MG/10 ML INJ IV ONE ×2 (21:14→22:00)
--- NOTE | 2017-05-04 21:15 | RADIOLOGY REPORT (SQ) ---
EXAM DESCRIPTION: SHOULDER LEFT 2 OR MORE VIEWS COMPLETED DATE/TIME: 05/04/2017 8:40 pm REASON FOR STUDY: Post Surgical/ LEFT SHOULDER REPLACEMENT COMPARISON: None. NUMBER OF VIEWS: Two views. TECHNIQUE: Frontal and lateral images acquired of the left shoulder. LIMITATIONS: None. FINDINGS: MINERALIZATION: Normal. BONES: A left shoulder arthroplasty is present in good position. JOINTS: No dislocation. VISUALIZED LUNGS AND RIBS: No pneumothorax. No rib fracture. SOFT TISSUES: No radiopaque foreign body. OTHER: No other significant finding. IMPRESSION: Left shoulder arthroplasty. TECHNICAL DOCUMENTATION: JOB ID: [id number] [employer]- All Rights Reserved Reading location - IP/workstation name: [email or web address]
[2017-05-04 21:17] LABS: CALCIUM 6.6 mg/dL (8.4-10.2)
[2017-05-04] MEDS ORDERED: NORMAL SALINE 1000 ML 3,000 ML IV PRN (22:00)
[2017-05-04] MEDS ORDERED: CALCIUM GLUCONATE IV ONE (22:00)
[2017-05-04] MEDS: NORMAL SALINE 1000 ML 3,000 ML IV PRN (22:00)
[2017-05-04] MEDS ORDERED: NORMAL SALINE IV ONE (22:00)
[2017-05-05] MEDS ORDERED: CALCIUM GLUCONATE 1,000 MG in DEXTROSE 5%-WATER 50 ML IV ONE (00:15)
[2017-05-05] MEDS: FENTANYL CITRATE INJ/PF 100 MCG/2 ML AMPUL INJ PRN ×5 (01:06→22:29)
[2017-05-05] MEDS: PROPOFOL 100 ML IV PRN ×4 (01:53→18:48)
[2017-05-05] MEDS: NORMAL SALINE 1000 ML 3,000 ML IV PRN ×2 (01:53)
[2017-05-05 04:14] LABS: ALANINE AMINOTRANSFERASE 36 U/L (9-52); ALBUMIN 1.8 g/dL (3.5-5.0); ALKALINE PHOSPHATASE 34 U/L (38-126); ANION GAP 8 (5-19); ASPARTATE AMINO TRANSFERASE 29 U/L (14-36); BILIRUBIN,DIRECT 0.2 mg/dL (0.0-0.4); BILIRUBIN,TOTAL 0.2 mg/dL (0.2-1.3); BLOOD UREA NITROGEN 33 mg/dL (7-20); CARBON DIOXIDE 15 mmol/L (22-30); CHLORIDE 119 mmol/L (98-107); GLUCOSE 104 mg/dL (75-110); HEMATOCRIT 25.1 % (36.0-47.0); MEAN CORPUSCULAR HEMOGLOBIN 30.8 pg (27.0-33.4); MEAN CORPUSCULAR HGB CONC 33.8 g/dL (32.0-36.0); MEAN CORPUSCULAR VOLUME 91 fl (80-97); POTASSIUM 3.9 mmol/L (3.6-5.0); RED BLOOD COUNT 2.75 10^6/uL (3.72-5.28); RED CELL DISTRIBUTION WIDTH 13.9 % (11.5-14.0); SODIUM 141.7 mmol/L (137-145); TOTAL PROTEIN 3.6 g/dL (6.3-8.2); WHITE BLOOD COUNT 8.2 10^3/uL (4.0-10.5)
[2017-05-05] MEDS: NORMAL SALINE 1000 ML 1,000 ML IV SCH ×2 (04:33→10:11)
[2017-05-05 04:43] LABS: HEMOGLOBIN 8.5 g/dL (12.0-15.5)
[2017-05-05 04:49] LABS: ABSOLUTE LYMPHOCYTES# (MANUAL) 1.1 10^3/uL (0.5-4.7); ABSOLUTE MONOCYTES # (MANUAL) 0.2 10^3/uL (0.1-1.4); ABSOLUTE NEUTROPHILS# (MANUAL) 6.9 10^3/uL (1.7-8.2); BAND NEUTROPHILS % (MANUAL) 47 % (3-5); BASOPHILS % (MANUAL) 0 % (0-2); EOSINOPHILS % (MANUAL) 0 % (0-6); LYMPHOCYTES % (MANUAL) 14 % (13-45); MONOCYTES % (MANUAL) 2 % (3-13); SEGMENTED NEUTROPHILS % (MAN) 37 % (42-78); TOTAL CELLS COUNTED 100
[2017-05-05 04:51] LABS: BURR CELLS SLIGHT; CALCIUM 6.6 mg/dL (8.4-10.2); PLATELET CLUMPS PRESENT; PLATELET COMMENT ADEQUATE; POIKILOCYTOSIS SLIGHT; TOXIC GRANULATION 2+; TOXIC VACUOLATION PRESENT
[2017-05-05 04:54] LABS: PLATELET COUNT 190 10^3/uL (150-450)
[2017-05-05] MEDS ORDERED: CALCIUM GLUCONATE 2,000 MG in DEXTROSE 5%-WATER 100 ML IV ONE (05:00)
[2017-05-05] MEDS ORDERED: CALCIUM GLUCONATE 1000 MG/10 ML INJ IV ONE (05:15)
[2017-05-05] MEDS: METRONIDAZOLE 500 MG/NS RTU 100 ML IV SCH ×4 (05:20→23:59)
--- NOTE | 2017-05-05 06:09 | PDOC CONSULTATION ---
Consultation Consult Date: 05/04/17 Attending physician:: ZOEY XIE Consult reason:: Acute renal failure History of Present Illness Admission Date/PCP: 05/03/17 21:12 History of Present Illness: JOURDAN PEREZ is a 76 year old female with recent history of right shoulder surgery 2 weeks ago. History is obtained by the record and grandson at bedside who is power of insurance attorney as patient is intubated and sedated. She had otherwise been well with exception to constipation. Suddenly c/o severe diffuse abdominal pains early this morning associated with N/V. Ct abd/pelvis showed free air.Patient was subsequently taken to the operating room for a perforation of viscus and is currently in the ICU intubated and sedated. Patient has received a total of 6 L in the perioperative period and has minimal urine output, her labs reveal acute renal failure and hypocalcemia. Past Medical History Medical History: None Cardiac Medical History: Reports: None Denies: Hyperlipidema, Hypertension Pulmonary Medical History: Reports: None Denies: Sleep Apnea EENT Medical History: Reports: None Neurological Medical History: Reports: None Endocrine Medical History: Reports: None Renal/ Medical History: Reports: None Malignancy Medical History: Reports: None GI Medical History: Reports: None Musculoskeltal Medical History: Reports: Arthritis - shoulders Denies: Fibromyalgia Skin Medical History: Reports: None Psychiatric Medical History: Reports: None Traumatic Medical History: Reports: None Hematology: Reports: None Infectious Medical History: Reports: None Past Surgical History Past Surgical History: Reports: Other - left shoulder surgery by Dr Valdez . Denies: Amputation, Appendectomy, Section, Cholecystectomy, Coronary Artery Bypass Graft, Gastric Bypass Surgery, Herniorrhaphy, Hysterectomy, Mastectomy, Pacemaker, Tonsillectomy, Tubal Ligation Social History Information Source: Relative, [facility] Records Lives with: Family Smoking Status: Never Smoker Frequency of Alcohol Use: Occasional Hx Recreational Drug Use: No Drugs: None Hx Prescription Drug Abuse: No - Advance Directive Resuscitation Status: Full Code Family History Family History: Other - Unobtainable Parental Family History Reviewed: No - Unobtainable Children Family History Reviewed: No - Unobtainable Sibling(s) Family History Reviewed.: No - Unobtainable Medication/Allergy Home Medications: Ibuprofen [Motrin 800 mg Tablet] 800 mg PO Q8HP PRN 05/04/17 Oxycodone HCl/Acetaminophen [Percocet 5-325 mg Tablet] 1 tab PO Q4HP PRN Allergies/Adverse Reactions: codeine Allergy (Verified 04/05/17 10:31) Sulfa (Sulfonamide Antibiotics) Allergy (Verified 04/05/17 10:31) Review of Systems ROS unobtainable: Due to mental status - Intubated and sedated Physical Exam Vital Signs: Temp Pulse Resp BP Pulse Ox 98.8 F 116 H 15 123/60 99 05/05/17 05:38 05/04/17 20:00 05/05/17 02:00 05/05/17 01:45 05/05/17 05:28 Intake & Output 05/03/17 05/04/17 05/05/17 11:59 11:59 11:59 Intake Total 29164 7472 Output Total 65474 1120 Balance 1125 6352 Weight 77.2 kg 83.5 kg General appearance: PRESENT: no acute distress, other - Comfortable on ventilator intubated and sedated Head exam: PRESENT: atraumatic, normocephalic Eye exam: PRESENT: conjunctiva pink, EOMI, PERRLA. ABSENT: scleral icterus Mouth exam: PRESENT: moist, tongue midline Neck exam: ABSENT: carotid bruit, JVD, lymphadenopathy, thyromegaly Respiratory exam: PRESENT: clear to auscultation deonna. ABSENT: rales, rhonchi, wheezes Cardiovascular exam: PRESENT: RRR. ABSENT: diastolic murmur, rubs, systolic murmur Pulses: PRESENT: normal dorsalis pedis pul Vascular exam: PRESENT: normal capillary refill GI/Abdominal exam: PRESENT: normal bowel sounds, soft. ABSENT: distended, guarding, mass, organolmegaly, rebound, tenderness Rectal exam: PRESENT: deferred Extremities exam: PRESENT: full ROM. ABSENT: calf tenderness, clubbing, pedal edema Neurological exam: PRESENT: alert, awake, oriented to person, oriented to place , oriented to time, oriented to situation, CN II-XII grossly intact. ABSENT: motor sensory deficit Psychiatric exam: PRESENT: appropriate affect, normal mood. ABSENT: homicidal ideation, suicidal ideation Skin exam: PRESENT: dry, intact, warm. ABSENT: cyanosis, rash Results Laboratory Results: 05/05/17 03:45 05/05/17 03:45 05/04/17 05/04/17 05/04/17 06:26 20:25 20:25 WBC RBC Hgb Hct MCV MCH MCHC RDW Plt Count Seg Neutrophils % Lymphocytes % Monocytes % Eosinophils % Basophils % Absolute Neutrophils Absolute Lymphocytes Absolute Monocytes Absolute Eosinophils Absolute Basophils Carbonic Acid 0.90 L HCO3/H2CO3 Ratio 20:1 ABG pH 7.40 ABG pCO2 30.0 L ABG pO2 154.7 H ABG HCO3 18.3 L ABG O2 Saturation 99.0 H ABG Base Excess -5.4 FiO2 35% Sodium 141.6 Potassium 4.4 Chloride 115 H Carbon Dioxide 18 L Anion Gap 9 BUN 33 H Creatinine 1.84 H Est GFR ( Amer) 32 L Est GFR (Non-Af Amer) 27 L Glucose 115 H Lactic Acid 2.3 H Calcium 6.6 L* Magnesium 1.9 Total Bilirubin AST ALT Alkaline Phosphatase Total Protein Albumin 05/05/17 05/05/17 05/05/17 00:26 03:45 03:45 WBC 8.2 RBC 2.75 L Hgb 8.5 L D Hct 25.1 L MCV 91 MCH 30.8 MCHC 33.8 RDW 13.9 Plt Count 190 Seg Neutrophils % Not Reportable Lymphocytes % Not Reportable Monocytes % Not Reportable Eosinophils % Not Reportable Basophils % Not Reportable Absolute Neutrophils Not Reportable Absolute Lymphocytes Not Reportable Absolute Monocytes Not Reportable Absolute Eosinophils Not Reportable Absolute Basophils Not Reportable Carbonic Acid HCO3/H2CO3 Ratio ABG pH ABG pCO2 ABG pO2 ABG HCO3 ABG O2 Saturation ABG Base Excess FiO2 Sodium 141.7 Potassium 3.9 Chloride 119 H Carbon Dioxide 15 L Anion Gap 8 BUN 33 H Creatinine 1.87 H Est GFR ( Amer) 32 L Est GFR (Non-Af Amer) 26 L Glucose 104 Lactic Acid 2.6 H Calcium 6.6 L* Magnesium Total Bilirubin 0.2 AST 29 ALT 36 Alkaline Phosphatase 34 L Total Protein 3.6 L Albumin 1.8 L Impressions: Abdomen/Pelvis CT 05/03/17 19:43 IMPRESSION: There is free air and fluid in the abdomen suggestive of gastrointestinal perforation. Site is uncertain. Chest X-Ray 05/04/17 00:00 IMPRESSION: 1. Small free air under the right hemidiaphragm consistent with CT from one evening prior. 2. Interval intubation. Shoulder X-Ray 05/04/17 00:00 IMPRESSION: Left shoulder arthroplasty. Assessment & Plan - Diagnosis (1) Metabolic acidosis Is this a current diagnosis for this admission?: Yes Plan: Secondary to hypoperfusion, sepsis with distributive shock. Agree with empiric antibiotic, Levaquin and Flagyl, follow blood culture IV fluid challenge reevaluate chemistry. (2) Hypocalcemia Is this a current diagnosis for this admission?: Yes Plan: Repletion and reevaluation (3) Perforated abdominal viscus Is this a current diagnosis for this admission?: Yes Plan: Defer to surgery (4) Renal failure Qualifiers: Renal failure chronicity: unspecified chronicity Qualified Code(s): N19 - Unspecified kidney failure Is this a current diagnosis for this admission?: Yes Plan: Secondary to #1, patient has received 6 L continue normal saline at 500/h pending increased urine output. Reevaluate chemistry, avoid nephrotoxic meds and doses - Time Time Spent: 50 to 70 Minutes - Inpatient Certification Medical Necessity: Need Close Monitoring Due to Risk of Patient Decompensation
--- NOTE | 2017-05-05 08:23 | RADIOLOGY REPORT (SQ) ---
EXAM DESCRIPTION: CHEST SINGLE VIEW COMPLETED DATE/TIME: 05/05/2017 6:17 am REASON FOR STUDY: intubated COMPARISON: 05/04/2017 EXAM PARAMETERS: NUMBER OF VIEWS: One view. TECHNIQUE: Single frontal radiographic view of the chest acquired. RADIATION DOSE: NA LIMITATIONS: None. FINDINGS: LUNGS AND PLEURA: Developing minimal faint opacity left lower lung zone. Possible atelect asis or infiltrate. Lungs otherwise clear. No free air beneath the diaphragm on the current examina tion. MEDIASTINUM AND HILAR STRUCTURES: No masses. Contour normal. HEART AND VASCULAR STRUCTURES: Heart normal in size. Normal vasculature. BONES: No acute findings. HARDWARE: Tip of the endotracheal tube is approximately 3 cm proximal to the farhan and at the level of the clavicles. Distal NG tube beneath the diaphragm however clip distally on the film. . OTHER: No other significant finding. IMPRESSION: Minimal haziness left lower lung zone may represent developing atelectasis or infiltrate . Endotracheal tube remains in good position. Distal NG tube beneath the diaphragm. No free air id entified. TECHNICAL DOCUMENTATION: JOB ID: [id number] [email or web address]- All Rights Reserved Reading location - IP/workstation name: [email or web address]
[2017-05-05 08:52] LABS: ARTERIAL BLOOD BASE EXCESS -8.2 mmol/L; ARTERIAL BLOOD H2CO3 0.83 mmol/L (1.05-1.35); ARTERIAL BLOOD HCO3 15.9 mmol/L (20-26); ARTERIAL BLOOD O2 SATURATION 98.3 % (94-98); ARTERIAL BLOOD PCO2 27.5 mmHg (35-45); ARTERIAL BLOOD PH 7.38 (7.35-7.45); ARTERIAL BLOOD PO2 118.1 mmHg (80-100); ARTERIAL BLOOD TOTAL CO2 16.7 mmol/L (21-25)
[2017-05-05 08:57] LABS: ARTERIAL BLOOD FIO2 35%
[2017-05-05] MEDS ORDERED: METOLAZONE 2.5 MG TABLET PO SCH (10:00)
[2017-05-05] MEDS: FAMOTIDINE INJ/PF 20 MG/2 ML SDV IV SCH ×2 (12:07→22:19)
[2017-05-05] MEDS: FUROSEMIDE INJ/PF 20 MG/2 ML SDV IV SCH ×2 (12:07→22:19)
[2017-05-05] MEDS: CIPROFLOXACIN 400 MG/D5W RTU 400 MG/200 ML RTUPB IV SCH ×2 (12:08→22:18)
[2017-05-05] MEDS: ENOXAPARIN SODIUM INJ 40 MG/0.4 ML DISP.SYRIN SUBCUT SCH (14:30)
--- NOTE | 2017-05-05 19:24 | PDOC PROGRESS REPORT ---
Subjective Progress Note for:: 05/05/17 Subjective:: POD #3 s/p sade's procedure for sigmoid perforation. Patient remains intubated on mechanical ventilation. She is edematous from fluid rehydration for poor urinary output yesterday. Reason For Visit: PERFORATED SIGMOID COLON Physical Exam Vital Signs: Temp Pulse Resp BP Pulse Ox 100.1 F 107 H 16 129/65 H 98 05/05/17 16:00 05/05/17 16:00 05/05/17 18:15 05/05/17 18:15 05/05/17 18:15 Intake & Output 05/04/17 05/05/17 05/06/17 06:59 06:59 06:59 Intake Total 37958 7472 2725 Output Total 94072 1280 2500 Balance 1285 6192 225 Weight 77.2 kg 83.5 kg General appearance: PRESENT: other - on mechanical ventilation via orotracheal tube Head exam: PRESENT: atraumatic, normocephalic Eye exam: PRESENT: conjunctiva pink. ABSENT: scleral icterus Mouth exam: PRESENT: other - O-T tube in place Respiratory exam: PRESENT: clear to auscultation deonna Cardiovascular exam: PRESENT: +S1, +S2 GI/Abdominal exam: PRESENT: normal bowel sounds, soft, other - midline incision is clean, dry with packings between janene. Colostomy is functioning with gas and small amount of liquid stool in bag. Gentrourinary exam: PRESENT: indwelling catheter Extremities exam: PRESENT: +2 edema Neurological exam: PRESENT: awake - responds to commands Results Laboratory Results: 05/05/17 03:45 05/05/17 03:45 05/04/17 05/04/17 05/05/17 20:25 20:25 00:26 WBC RBC Hgb Hct MCV MCH MCHC RDW Plt Count Seg Neutrophils % Lymphocytes % Monocytes % Eosinophils % Basophils % Absolute Neutrophils Absolute Lymphocytes Absolute Monocytes Absolute Eosinophils Absolute Basophils Carbonic Acid HCO3/H2CO3 Ratio ABG pH ABG pCO2 ABG pO2 ABG HCO3 ABG O2 Saturation ABG Base Excess FiO2 Sodium 141.6 Potassium 4.4 Chloride 115 H Carbon Dioxide 18 L Anion Gap 9 BUN 33 H Creatinine 1.84 H Est GFR ( Amer) 32 L Est GFR (Non-Af Amer) 27 L Glucose 115 H Lactic Acid 2.3 H 2.6 H Calcium 6.6 L* Magnesium 1.9 Total Bilirubin AST ALT Alkaline Phosphatase Total Protein Albumin 05/05/17 05/05/17 05/05/17 03:45 03:45 08:29 WBC 8.2 RBC 2.75 L Hgb 8.5 L D Hct 25.1 L MCV 91 MCH 30.8 MCHC 33.8 RDW 13.9 Plt Count 190 Seg Neutrophils % Not Reportable Lymphocytes % Not Reportable Monocytes % Not Reportable Eosinophils % Not Reportable Basophils % Not Reportable Absolute Neutrophils Not Reportable Absolute Lymphocytes Not Reportable Absolute Monocytes Not Reportable Absolute Eosinophils Not Reportable Absolute Basophils Not Reportable Carbonic Acid 0.83 L HCO3/H2CO3 Ratio 19:1 ABG pH 7.38 ABG pCO2 27.5 L ABG pO2 118.1 H ABG HCO3 15.9 L ABG O2 Saturation 98.3 H ABG Base Excess -8.2 FiO2 35% Sodium 141.7 Potassium 3.9 Chloride 119 H Carbon Dioxide 15 L Anion Gap 8 BUN 33 H Creatinine 1.87 H Est GFR ( Amer) 32 L Est GFR (Non-Af Amer) 26 L Glucose 104 Lactic Acid Calcium 6.6 L* Magnesium Total Bilirubin 0.2 AST 29 ALT 36 Alkaline Phosphatase 34 L Total Protein 3.6 L Albumin 1.8 L Impressions: Abdomen/Pelvis CT 05/03/17 19:43 IMPRESSION: There is free air and fluid in the abdomen suggestive of gastrointestinal perforation. Site is uncertain. Shoulder X-Ray 05/04/17 00:00 IMPRESSION: Left shoulder arthroplasty. Chest X-Ray 05/05/17 06:00 IMPRESSION: Minimal haziness left lower lung zone may represent developing atelectasis or infiltrate. Endotracheal tube remains in good position. Distal NG tube beneath the diaphragm. No free air identified. Assessment & Plan - Diagnosis (1) Perforated abdominal viscus Is this a current diagnosis for this admission?: Yes - Plan Summary Plan Summary: For possible weaning and extubation tomorrow. Cut back fluids to 100cc/hr from present 200cc/hr rate.
--- NOTE | 2017-05-05 19:39 | PDOC PROGRESS REPORT ---
Subjective Progress Note for:: 05/05/17 Subjective:: intubated acidotic volume overloaded 76 yo post op Reason For Visit: PERFORATED SIGMOID COLON Physical Exam Vital Signs: Temp Pulse Resp BP Pulse Ox 99.1 F 101 H 21 H 113/62 99 05/05/17 07:55 05/05/17 07:55 05/05/17 07:55 05/05/17 07:55 05/05/17 07:55 Intake & Output 05/04/17 05/05/17 05/06/17 06:59 06:59 06:59 Intake Total 62404 7472 Output Total 57353 1280 160 Balance 1285 6192 -160 Weight 77.2 kg 83.5 kg General appearance: PRESENT: no acute distress, cooperative, disheveled, obese, well-developed Head exam: PRESENT: atraumatic, normocephalic Eye exam: PRESENT: conjunctiva pale. ABSENT: nystagmus, periorbital swelling, scleral icterus Mouth exam: PRESENT: dry mucosa, neck supple, tongue midline, other - ET Neck exam: ABSENT: carotid bruit, JVD, lymphadenopathy, thyromegaly, tracheal deviation, tracheostomy Respiratory exam: PRESENT: decreased breath sounds, prolonged expiratory phas, rales, rhonchi, symmetrical, unlabored. ABSENT: retraction, stridor, tachypnea Cardiovascular exam: PRESENT: RRR, +S1, +S2 Pulses: PRESENT: normal radial pulses GI/Abdominal exam: PRESENT: other - s/p surgery Extremities exam: PRESENT: +1 edema. ABSENT: clubbing Musculoskeletal exam: PRESENT: deformity, dislocation Neurological exam: PRESENT: awake Skin exam: PRESENT: dry, warm Results Laboratory Results: 05/05/17 03:45 05/05/17 03:45 05/04/17 05/04/17 05/05/17 20:25 20:25 00:26 WBC RBC Hgb Hct MCV MCH MCHC RDW Plt Count Seg Neutrophils % Lymphocytes % Monocytes % Eosinophils % Basophils % Absolute Neutrophils Absolute Lymphocytes Absolute Monocytes Absolute Eosinophils Absolute Basophils Sodium 141.6 Potassium 4.4 Chloride 115 H Carbon Dioxide 18 L Anion Gap 9 BUN 33 H Creatinine 1.84 H Est GFR ( Amer) 32 L Est GFR (Non-Af Amer) 27 L Glucose 115 H Lactic Acid 2.3 H 2.6 H Calcium 6.6 L* Magnesium 1.9 Total Bilirubin AST ALT Alkaline Phosphatase Total Protein Albumin 05/05/17 05/05/17 03:45 03:45 WBC 8.2 RBC 2.75 L Hgb 8.5 L D Hct 25.1 L MCV 91 MCH 30.8 MCHC 33.8 RDW 13.9 Plt Count 190 Seg Neutrophils % Not Reportable Lymphocytes % Not Reportable Monocytes % Not Reportable Eosinophils % Not Reportable Basophils % Not Reportable Absolute Neutrophils Not Reportable Absolute Lymphocytes Not Reportable Absolute Monocytes Not Reportable Absolute Eosinophils Not Reportable Absolute Basophils Not Reportable Sodium 141.7 Potassium 3.9 Chloride 119 H Carbon Dioxide 15 L Anion Gap 8 BUN 33 H Creatinine 1.87 H Est GFR ( Amer) 32 L Est GFR (Non-Af Amer) 26 L Glucose 104 Lactic Acid Calcium 6.6 L* Magnesium Total Bilirubin 0.2 AST 29 ALT 36 Alkaline Phosphatase 34 L Total Protein 3.6 L Albumin 1.8 L Impressions: Abdomen/Pelvis CT 05/03/17 19:43 IMPRESSION: There is free air and fluid in the abdomen suggestive of gastrointestinal perforation. Site is uncertain. Shoulder X-Ray 05/04/17 00:00 IMPRESSION: Left shoulder arthroplasty. Chest X-Ray 05/05/17 06:00 IMPRESSION: Minimal haziness left lower lung zone may represent developing atelectasis or infiltrate. Endotracheal tube remains in good position. Distal NG tube beneath the diaphragm. No free air identified. Assessment & Plan - Diagnosis (1) Metabolic acidosis Is this a current diagnosis for this admission?: Yes Plan: unchanged (2) Perforated abdominal viscus Is this a current diagnosis for this admission?: Yes Plan: As per surgery (3) Renal failure Qualifiers: Renal failure chronicity: unspecified chronicity Qualified Code(s): N19 - Unspecified kidney failure Is this a current diagnosis for this admission?: Yes Plan: diuretic nephrology consult (4) Respiratory failure Is this a current diagnosis for this admission?: Yes Plan: improving - Time Total Critical Time (Minutes): 45
[2017-05-05] MEDS: ACETAMINOPHEN 650 MG SUPP.RECT PR PRN (23:58)
[2017-05-06] MEDS: PROPOFOL 100 ML IV PRN ×3 (01:02→05:53)
[2017-05-06] MEDS: NORMAL SALINE 1000 ML 1,000 ML IV SCH (01:07)
[2017-05-06] MEDS: FENTANYL CITRATE INJ/PF 100 MCG/2 ML AMPUL INJ PRN ×3 (02:48→15:03)
[2017-05-06 04:20] LABS: HEMOGLOBIN 8.7 g/dL (12.0-15.5); MEAN CORPUSCULAR HEMOGLOBIN 31.6 pg (27.0-33.4); MEAN CORPUSCULAR HGB CONC 34.9 g/dL (32.0-36.0); MEAN CORPUSCULAR VOLUME 91 fl (80-97); PLATELET COUNT 189 10^3/uL (150-450); RED BLOOD COUNT 2.77 10^6/uL (3.72-5.28); RED CELL DISTRIBUTION WIDTH 14.4 % (11.5-14.0); WHITE BLOOD COUNT 9.5 10^3/uL (4.0-10.5)
[2017-05-06 04:36] LABS: ALANINE AMINOTRANSFERASE 34 U/L (9-52); ALKALINE PHOSPHATASE 54 U/L (38-126); ANION GAP 11 (5-19); ASPARTATE AMINO TRANSFERASE 31 U/L (14-36); BILIRUBIN,DIRECT 0.1 mg/dL (0.0-0.4); BILIRUBIN,TOTAL 0.1 mg/dL (0.2-1.3); BLOOD UREA NITROGEN 24 mg/dL (7-20); CALCIUM 7.3 mg/dL (8.4-10.2); CARBON DIOXIDE 19 mmol/L (22-30); CHLORIDE 111 mmol/L (98-107); CREATINE KINASE 248 U/L (30-135); GLUCOSE 88 mg/dL (75-110); PHOSPHORUS 3.6 mg/dL (2.5-4.5); POTASSIUM 3.2 mmol/L (3.6-5.0); TOTAL PROTEIN 3.9 g/dL (6.3-8.2); URIC ACID 3.1 mg/dL (2.5-7.5)
[2017-05-06 04:40] LABS: ABSOLUTE LYMPHOCYTES# (MANUAL) 0.5 10^3/uL (0.5-4.7); ABSOLUTE MONOCYTES # (MANUAL) 0.1 10^3/uL (0.1-1.4); ABSOLUTE NEUTROPHILS# (MANUAL) 8.9 10^3/uL (1.7-8.2); BASOPHILS % (MANUAL) 0 % (0-2); EOSINOPHILS % (MANUAL) 0 % (0-6); LYMPHOCYTES % (MANUAL) 5 % (13-45); MONOCYTES % (MANUAL) 1 % (3-13); SEGMENTED NEUTROPHILS % (MAN) 81 % (42-78); TOTAL CELLS COUNTED 100
[2017-05-06 04:45] LABS: ANISOCYTOSIS SLIGHT; PLATELET COMMENT ADEQUATE; POLYCHROMASIA SLIGHT; TOXIC GRANULATION 1+; TOXIC VACUOLATION PRESENT
[2017-05-06 04:47] LABS: BAND NEUTROPHILS % (MANUAL) 13 % (3-5)
[2017-05-06 05:07] LABS: ARTERIAL BLOOD BASE EXCESS -3.8 mmol/L; ARTERIAL BLOOD H2CO3 0.88 mmol/L (1.05-1.35); ARTERIAL BLOOD HCO3 19.7 mmol/L (20-26); ARTERIAL BLOOD O2 SATURATION 98.7 % (94-98); ARTERIAL BLOOD PCO2 29.2 mmHg (35-45); ARTERIAL BLOOD PH 7.45 (7.35-7.45); ARTERIAL BLOOD PO2 127.4 mmHg (80-100); ARTERIAL BLOOD TOTAL CO2 20.6 mmol/L (21-25)
[2017-05-06 05:08] LABS: ARTERIAL BLOOD FIO2 35%
[2017-05-06] MEDS: METRONIDAZOLE 500 MG/NS RTU 100 ML IV SCH ×3 (05:51→17:49)
[2017-05-06] MEDS: POTASSIUM CHLORIDE 20 MEQ/50 ML RTU IV SCH ×2 (06:13→08:15)
[2017-05-06] MEDS ORDERED: POTASSI CL 20 MEQ/50 ML RIDER 20 MEQ/50 ML RTUPB IV SCH (07:39)
--- NOTE | 2017-05-06 07:58 | RADIOLOGY REPORT (SQ) ---
EXAM DESCRIPTION: CHEST SINGLE VIEW CLINICAL HISTORY: 76 years Female, pna COMPARISON: 05/05/17. NUMBER OF VIEWS/TECHNIQUE: 1/AP LIMITATIONS: None. FINDINGS: Mild haziness/layered effusion of the left lower lung field, normal cardiac silhouette, adequate appearing endotracheal tube, and distally obscured likely adequate enteric tube. Left total shoulder arthroplasty. No pneumothorax. No acute bone defect. IMPRESSION: No significant change.
--- NOTE | 2017-05-06 10:18 | PDOC CONSULTATION ---
Consultation Consult Date: 05/05/17 Consult reason:: WONG with decreasing urine OP History of Present Illness Admission Date/PCP: 05/03/17 21:12 History of Present Illness: JOURDAN PEREZ is a 76 year old female with otherwisw good health with no h/o chronic illnessess like DM, Hypertension, CKD who had recently undergone a right shoulder surgery 2 weeks ago. History is obtained by the record and grandson at bedside who is power of personal injury attorney as patient is intubated and sedated. She was admitted with severe diffuse abdominal pains associated with N/V. CT abd /pelvis showed free air. Patient was subsequently taken to the operating room and ex lap revealed a perforated sigmoid colon. She underwent a sigmoid colon resection followed by a colostomy and hartmans pouch and transferred to the ICU intubated and sedated. She has had some hypotensive episodes and has had fluid infusions.Her renal numbers have begun to rise along with dropping urine out put. I saw her in the ICU along with her grandson who is at the bedside.The patient was also discussed with her treating RN Zoë. Past Medical History Cardiac Medical History: Reports: None Denies: Hyperlipidemia Pulmonary Medical History: Reports: None Denies: Sleep Apnea EENT Medical History: Reports: None Neurological Medical History: Reports: None Endocrine Medical History: Reports: None Complications of Diabetes: Reports: None Renal/ Medical History: Reports: None Malignancy Medical History: Reports: None GI Medical History: Reports: None Musculoskeltal Medical History: Reports: Arthritis - shoulders Denies: Fibromyalgia, Rheumatoid Arthritis Skin Medical History: Reports: None Psychiatric Medical History: Reports: None Traumatic Medical History: Reports: None Infectious Medical History: Reports: None Past Surgical History Past Surgical History: Reports: Other - left shoulder surgery by Dr Valdez . Denies: Appendectomy, Section, Cholecystectomy, Coronary Artery Bypass Graft, Gastric Bypass Surgery, Herniorrhaphy, Hysterectomy, Mastectomy, Pacemaker, Tonsillectomy, Tubal Ligation Social History Lives with: Family Smoking Status: Never Smoker Frequency of Alcohol Use: Occasional Hx Recreational Drug Use: No Drugs: None Hx Prescription Drug Abuse: No - Advance Directive Resuscitation Status: Full Code Family History Parental Family History Reviewed: Yes Children Family History Reviewed: No Sibling(s) Family History Reviewed.: No Medication/Allergy Home Medications: Ibuprofen [Motrin 800 mg Tablet] 800 mg PO Q8HP PRN 05/04/17 Oxycodone HCl/Acetaminophen [Percocet 5-325 mg Tablet] 1 tab PO Q4HP PRN Allergies/Adverse Reactions: codeine Allergy (Verified 04/05/17 10:31) Sulfa (Sulfonamide Antibiotics) Allergy (Verified 04/05/17 10:31) Review of Systems ROS unobtainable: Due to endotracheal tube - discussions done with LEXIS bruno and review of notes. Physical Exam Vital Signs: Temp Pulse Resp BP Pulse Ox 99.2 F 111 H 17 139/73 H 98 05/05/17 12:00 05/05/17 12:00 05/05/17 12:00 05/05/17 12:00 05/05/17 12:10 Intake & Output 05/04/17 05/05/17 05/06/17 06:59 06:59 06:59 Intake Total 73495 7472 Output Total 75079 1280 900 Balance 1285 6192 -900 Weight 77.2 kg 83.5 kg General appearance: PRESENT: no acute distress Eye exam: PRESENT: EOMI, PERRLA Ear exam: PRESENT: normal external ear exam Neck exam: ABSENT: lymphadenopathy, meningismus, tenderness, thyromegaly, tracheal deviation Respiratory exam: PRESENT: clear to auscultation deonna. ABSENT: crackles, rhonchi Cardiovascular exam: PRESENT: +S1, +S2 GI/Abdominal exam: PRESENT: firm, guarding - Especially over the right half of the abdomen, tenderness - especially over the right half of the abdomen. ABSENT : normal bowel sounds Extremities exam: ABSENT: pedal edema Neurological exam: PRESENT: altered Skin exam: ABSENT: erythema, mottled Results Laboratory Results: 05/05/17 03:45 05/05/17 03:45 05/04/17 05/04/17 05/05/17 20:25 20:25 00:26 WBC RBC Hgb Hct MCV MCH MCHC RDW Plt Count Seg Neutrophils % Lymphocytes % Monocytes % Eosinophils % Basophils % Absolute Neutrophils Absolute Lymphocytes Absolute Monocytes Absolute Eosinophils Absolute Basophils Carbonic Acid HCO3/H2CO3 Ratio ABG pH ABG pCO2 ABG pO2 ABG HCO3 ABG O2 Saturation ABG Base Excess FiO2 Sodium 141.6 Potassium 4.4 Chloride 115 H Carbon Dioxide 18 L Anion Gap 9 BUN 33 H Creatinine 1.84 H Est GFR ( Amer) 32 L Est GFR (Non-Af Amer) 27 L Glucose 115 H Lactic Acid 2.3 H 2.6 H Calcium 6.6 L* Magnesium 1.9 Total Bilirubin AST ALT Alkaline Phosphatase Total Protein Albumin 05/05/17 05/05/17 05/05/17 03:45 03:45 08:29 WBC 8.2 RBC 2.75 L Hgb 8.5 L D Hct 25.1 L MCV 91 MCH 30.8 MCHC 33.8 RDW 13.9 Plt Count 190 Seg Neutrophils % Not Reportable Lymphocytes % Not Reportable Monocytes % Not Reportable Eosinophils % Not Reportable Basophils % Not Reportable Absolute Neutrophils Not Reportable Absolute Lymphocytes Not Reportable Absolute Monocytes Not Reportable Absolute Eosinophils Not Reportable Absolute Basophils Not Reportable Carbonic Acid 0.83 L HCO3/H2CO3 Ratio 19:1 ABG pH 7.38 ABG pCO2 27.5 L ABG pO2 118.1 H ABG HCO3 15.9 L ABG O2 Saturation 98.3 H ABG Base Excess -8.2 FiO2 35% Sodium 141.7 Potassium 3.9 Chloride 119 H Carbon Dioxide 15 L Anion Gap 8 BUN 33 H Creatinine 1.87 H Est GFR ( Amer) 32 L Est GFR (Non-Af Amer) 26 L Glucose 104 Lactic Acid Calcium 6.6 L* Magnesium Total Bilirubin 0.2 AST 29 ALT 36 Alkaline Phosphatase 34 L Total Protein 3.6 L Albumin 1.8 L Impressions: Abdomen/Pelvis CT 05/03/17 19:43 IMPRESSION: There is free air and fluid in the abdomen suggestive of gastrointestinal perforation. Site is uncertain. Shoulder X-Ray 05/04/17 00:00 IMPRESSION: Left shoulder arthroplasty. Chest X-Ray 05/05/17 06:00 IMPRESSION: Minimal haziness left lower lung zone may represent developing atelectasis or infiltrate. Endotracheal tube remains in good position. Distal NG tube beneath the diaphragm. No free air identified. Assessment & Plan - Diagnosis (1) WONG (acute kidney injury) Plan: Secondary to septic state. Patient showing oliguric features. I will continue on fluid restriction along with rest of her medications. She is currently on the right. Will monitor. No indications for renal replacements. Long discussion with grandson by the bedside. Please dose medications for GFR of roughly 25 cc/min. (2) Hypocalcemia Is this a current diagnosis for this admission?: Yes Plan: Corrected calcium is low and continue on replacements (3) Hypokalemia Is this a current diagnosis for this admission?: Yes Plan: Replace and monitor (4) Metabolic acidosis Is this a current diagnosis for this admission?: Yes Plan: Monitor. No indications for bicarb in the moment. (5) Perforated abdominal viscus Is this a current diagnosis for this admission?: Yes Plan: Patient has had a perforated sigmoid colon for which she underwent a resection of the sigmoid colon by colostomy and Bianchi's pouch. Unstable. Further management as per surgicallist
[2017-05-06] MEDS: FAMOTIDINE INJ/PF 20 MG/2 ML SDV IV SCH ×2 (10:33→21:49)
[2017-05-06] MEDS: CIPROFLOXACIN 400 MG/D5W RTU 400 MG/200 ML RTUPB IV SCH ×2 (10:34→21:48)
[2017-05-06] MEDS: NORMAL SALINE 1000 ML 1,000 ML IV PRN (10:35)
[2017-05-06] MEDS ORDERED: FUROSEMIDE INJ/PF 20 MG/2 ML SDV IV ONE (11:00)
--- NOTE | 2017-05-06 12:02 | PDOC PROGRESS REPORT ---
Subjective Progress Note for:: 05/06/17 Subjective:: intubated Reason For Visit: PERFORATED SIGMOID COLON Physical Exam Vital Signs: Temp Pulse Resp BP Pulse Ox 99.1 F 114 H 14 106/62 98 05/06/17 03:25 05/05/17 20:00 05/06/17 06:15 05/06/17 06:15 05/06/17 08:00 Intake & Output 05/05/17 05/06/17 05/07/17 06:59 06:59 06:59 Intake Total 7472 4253 Output Total 1280 5675 Balance 6192 -1422 Weight 83.5 kg 83.7 kg General appearance: PRESENT: no acute distress, obese. ABSENT: cooperative, disheveled Head exam: PRESENT: atraumatic, normocephalic Eye exam: PRESENT: conjunctiva pale. ABSENT: nystagmus, periorbital swelling, scleral icterus Mouth exam: PRESENT: dry mucosa, neck supple, tongue midline, other - ET Neck exam: ABSENT: carotid bruit, JVD, lymphadenopathy, thyromegaly, tracheal deviation, tracheostomy Respiratory exam: PRESENT: decreased breath sounds, prolonged expiratory phas, rhonchi, symmetrical, unlabored. ABSENT: stridor, tachypnea Cardiovascular exam: PRESENT: RRR, +S1, +S2 Pulses: PRESENT: normal radial pulses - [id number] GI/Abdominal exam: PRESENT: diminished bowel sounds, soft Extremities exam: ABSENT: clubbing, joint swelling Musculoskeletal exam: ABSENT: deformity, dislocation Neurological exam: PRESENT: awake, oriented to person Skin exam: PRESENT: dry, warm Results Laboratory Results: 05/06/17 04:06 05/06/17 04:06 05/06/17 05/06/17 05/06/17 04:06 04:06 04:55 WBC 9.5 RBC 2.77 L Hgb 8.7 L Hct 25.0 L MCV 91 MCH 31.6 MCHC 34.9 RDW 14.4 H Plt Count 189 Seg Neutrophils % Not Reportable Lymphocytes % Not Reportable Monocytes % Not Reportable Eosinophils % Not Reportable Basophils % Not Reportable Absolute Neutrophils Not Reportable Absolute Lymphocytes Not Reportable Absolute Monocytes Not Reportable Absolute Eosinophils Not Reportable Absolute Basophils Not Reportable Carbonic Acid 0.88 L HCO3/H2CO3 Ratio 22:1 ABG pH 7.45 ABG pCO2 29.2 L ABG pO2 127.4 H ABG HCO3 19.7 L ABG O2 Saturation 98.7 H ABG Base Excess -3.8 FiO2 35% Sodium 141.0 Potassium 3.2 L Chloride 111 H Carbon Dioxide 19 L Anion Gap 11 BUN 24 H Creatinine 1.43 H Est GFR ( Amer) 43 L Est GFR (Non-Af Amer) 36 L Glucose 88 Uric Acid 3.1 Calcium 7.3 L Phosphorus 3.6 Magnesium 1.7 Total Bilirubin 0.1 L AST 31 ALT 34 Alkaline Phosphatase 54 Total Protein 3.9 L Albumin 2.0 L 05/06/17 04:06 Creatine Kinase 248 H Impressions: Abdomen/Pelvis CT 05/03/17 19:43 IMPRESSION: There is free air and fluid in the abdomen suggestive of gastrointestinal perforation. Site is uncertain. Shoulder X-Ray 05/04/17 00:00 IMPRESSION: Left shoulder arthroplasty. Chest X-Ray 05/06/17 06:00 IMPRESSION: No significant change. Assessment & Plan - Diagnosis (1) Metabolic acidosis Is this a current diagnosis for this admission?: Yes Plan: improved (2) Perforated abdominal viscus Is this a current diagnosis for this admission?: Yes Plan: As per surgery (3) Renal failure Qualifiers: Renal failure chronicity: unspecified chronicity Qualified Code(s): N19 - Unspecified kidney failure Is this a current diagnosis for this admission?: Yes Plan: as per nephrology consult (4) Respiratory failure Is this a current diagnosis for this admission?: Yes Plan: min vol rr FIO2 Mental status airway preessure acceptable extubate - Time Total Critical Time (Minutes): 55
--- NOTE | 2017-05-06 12:18 | PDOC PROGRESS REPORT ---
Subjective Progress Note for:: 05/06/17 Subjective:: Patient is currently intubated. She is currently receiving 40mEQ of potassium today. She has also been receiving lasix. Her urine output looks to have greatly increased to over 5L yesterday Reason For Visit: PERFORATED SIGMOID COLON Physical Exam Vital Signs: Temp Pulse Resp BP Pulse Ox 99.1 F 91 14 106/62 98 05/06/17 03:25 05/06/17 08:00 05/06/17 06:15 05/06/17 06:15 05/06/17 08:00 Intake & Output 05/05/17 05/06/17 05/07/17 06:59 06:59 06:59 Intake Total 7472 4253 Output Total 1280 5675 Balance 6192 -1422 Weight 83.5 kg 83.7 kg General appearance: PRESENT: no acute distress, well-nourished Mouth exam: PRESENT: moist, neck supple Neck exam: PRESENT: full ROM. ABSENT: JVD Respiratory exam: PRESENT: clear to auscultation deonna. ABSENT: accessory muscle use, crackles, rales, rhonchi, wheezes Cardiovascular exam: PRESENT: RRR, +S1, +S2 GI/Abdominal exam: PRESENT: soft. ABSENT: firm, guarding, normal bowel sounds, tenderness Extremities exam: PRESENT: pedal edema - -trace+. ABSENT: tenderness Musculoskeletal exam: PRESENT: normal inspection. ABSENT: tenderness Neurological exam: PRESENT: altered, other - -intubated. ABSENT: alert, awake, oriented to person, oriented to place, oriented to time, oriented to situation Skin exam: PRESENT: dry, intact, warm Results Laboratory Results: 05/06/17 04:06 05/06/17 04:06 05/06/17 05/06/17 05/06/17 04:06 04:06 04:55 WBC 9.5 RBC 2.77 L Hgb 8.7 L Hct 25.0 L MCV 91 MCH 31.6 MCHC 34.9 RDW 14.4 H Plt Count 189 Seg Neutrophils % Not Reportable Lymphocytes % Not Reportable Monocytes % Not Reportable Eosinophils % Not Reportable Basophils % Not Reportable Absolute Neutrophils Not Reportable Absolute Lymphocytes Not Reportable Absolute Monocytes Not Reportable Absolute Eosinophils Not Reportable Absolute Basophils Not Reportable Carbonic Acid 0.88 L HCO3/H2CO3 Ratio 22:1 ABG pH 7.45 ABG pCO2 29.2 L ABG pO2 127.4 H ABG HCO3 19.7 L ABG O2 Saturation 98.7 H ABG Base Excess -3.8 FiO2 35% Sodium 141.0 Potassium 3.2 L Chloride 111 H Carbon Dioxide 19 L Anion Gap 11 BUN 24 H Creatinine 1.43 H Est GFR ( Amer) 43 L Est GFR (Non-Af Amer) 36 L Glucose 88 Uric Acid 3.1 Calcium 7.3 L Phosphorus 3.6 Magnesium 1.7 Total Bilirubin 0.1 L AST 31 ALT 34 Alkaline Phosphatase 54 Total Protein 3.9 L Albumin 2.0 L 05/06/17 04:06 Creatine Kinase 248 H Impressions: Abdomen/Pelvis CT 05/03/17 19:43 IMPRESSION: There is free air and fluid in the abdomen suggestive of gastrointestinal perforation. Site is uncertain. Shoulder X-Ray 05/04/17 00:00 IMPRESSION: Left shoulder arthroplasty. Chest X-Ray 05/06/17 06:00 IMPRESSION: No significant change. Assessment & Plan - Diagnosis (1) WONG (acute kidney injury) Plan: patient looks to be improving, adjusted lasix to 10mg qd, stopped the metolazone and started NS at 125mL/hour after talking to Dr. Romo. Currently she is in the diuretic phase of healing (2) Hypocalcemia Is this a current diagnosis for this admission?: Yes Plan: slightly improved, Currently at 7.5 with correction. Will needed to give more calcium if it trends down tomorrow. (3) Hypokalemia Is this a current diagnosis for this admission?: Yes Plan: receiving potassium replacement today. may need to adjust to receive it daily. (4) Metabolic acidosis Is this a current diagnosis for this admission?: Yes Plan: improving (5) Respiratory failure Is this a current diagnosis for this admission?: Yes Plan: currently intubated and being managed by pulmonology - Notes Notes: Patient case and care plan was discussed with Dr. Romo
[2017-05-06] MEDS: ENOXAPARIN SODIUM INJ 40 MG/0.4 ML DISP.SYRIN SUBCUT SCH (14:57)
--- NOTE | 2017-05-06 15:21 | PDOC PROGRESS REPORT ---
Subjective Progress Note for:: 05/06/17 Subjective:: POD #3 s/p sade's procedure for sigmoid perforation. Patient was extubated this afternoon and is doing subjectively well. Reason For Visit: PERFORATED SIGMOID COLON Physical Exam Vital Signs: Temp Pulse Resp BP Pulse Ox 98.8 F 100 22 H 131/69 H 100 05/06/17 12:00 05/06/17 11:45 05/06/17 12:15 05/06/17 12:15 05/06/17 12:15 Intake & Output 05/05/17 05/06/17 05/07/17 06:59 06:59 06:59 Intake Total 7472 4253 Output Total 1280 5675 525 Balance 6192 -1422 -525 Weight 83.5 kg 83.7 kg General appearance: PRESENT: no acute distress Respiratory exam: PRESENT: clear to auscultation deonna. ABSENT: rales, rhonchi, wheezes Cardiovascular exam: PRESENT: RRR. ABSENT: diastolic murmur, rubs, systolic murmur GI/Abdominal exam: PRESENT: normal bowel sounds, soft, other - Colostomy is functioning; incision is clean and dry.. ABSENT: distended, guarding, mass, organolmegaly, rebound, tenderness Gentrourinary exam: PRESENT: indwelling catheter Neurological exam: PRESENT: alert, awake, oriented to person, oriented to place , oriented to time, oriented to situation, CN II-XII grossly intact. ABSENT: motor sensory deficit Results Laboratory Results: 05/06/17 04:06 05/06/17 04:06 05/06/17 05/06/17 05/06/17 04:06 04:06 04:55 WBC 9.5 RBC 2.77 L Hgb 8.7 L Hct 25.0 L MCV 91 MCH 31.6 MCHC 34.9 RDW 14.4 H Plt Count 189 Seg Neutrophils % Not Reportable Lymphocytes % Not Reportable Monocytes % Not Reportable Eosinophils % Not Reportable Basophils % Not Reportable Absolute Neutrophils Not Reportable Absolute Lymphocytes Not Reportable Absolute Monocytes Not Reportable Absolute Eosinophils Not Reportable Absolute Basophils Not Reportable Carbonic Acid 0.88 L HCO3/H2CO3 Ratio 22:1 ABG pH 7.45 ABG pCO2 29.2 L ABG pO2 127.4 H ABG HCO3 19.7 L ABG O2 Saturation 98.7 H ABG Base Excess -3.8 FiO2 35% Sodium 141.0 Potassium 3.2 L Chloride 111 H Carbon Dioxide 19 L Anion Gap 11 BUN 24 H Creatinine 1.43 H Est GFR ( Amer) 43 L Est GFR (Non-Af Amer) 36 L Glucose 88 Uric Acid 3.1 Calcium 7.3 L Phosphorus 3.6 Magnesium 1.7 Total Bilirubin 0.1 L AST 31 ALT 34 Alkaline Phosphatase 54 Total Protein 3.9 L Albumin 2.0 L 05/06/17 04:06 Creatine Kinase 248 H Impressions: Abdomen/Pelvis CT 05/03/17 19:43 IMPRESSION: There is free air and fluid in the abdomen suggestive of gastrointestinal perforation. Site is uncertain. Shoulder X-Ray 05/04/17 00:00 IMPRESSION: Left shoulder arthroplasty. Chest X-Ray 05/06/17 06:00 IMPRESSION: No significant change. Assessment & Plan - Diagnosis (1) Perforated abdominal viscus Is this a current diagnosis for this admission?: Yes - Plan Summary Plan Summary: Will commence clears po Continue antibiotics IV Continue DVT prophylaxis Incentive spirometry. OOB to chair and ambulate by tomorrow.
--- NOTE | 2017-05-06 18:26 | PDOC PROGRESS REPORT ---
Subjective Progress Note for:: 05/06/17 Subjective:: Unable to obtain since intubated and sedated Reason For Visit: PERFORATED SIGMOID COLON Physical Exam Vital Signs: Temp Pulse Resp BP Pulse Ox 99.1 F 114 H 14 107/61 97 05/06/17 03:25 05/05/17 20:00 05/06/17 03:24 05/06/17 03:24 05/06/17 03:38 Intake & Output 05/04/17 05/05/17 05/06/17 06:59 06:59 06:59 Intake Total 00568 7472 2725 Output Total 60858 1280 5675 Balance 1285 4370 -3356 Weight 77.2 kg 83.5 kg 83.7 kg General appearance: PRESENT: no acute distress Head exam: PRESENT: atraumatic, normocephalic Eye exam: PRESENT: conjunctiva pink, EOMI, PERRLA Ear exam: PRESENT: normal external ear exam Mouth exam: PRESENT: moist Neck exam: ABSENT: JVD, lymphadenopathy, tenderness Respiratory exam: PRESENT: clear to auscultation deonna Cardiovascular exam: PRESENT: RRR. ABSENT: systolic murmur Vascular exam: PRESENT: normal capillary refill GI/Abdominal exam: PRESENT: hypoactive bowel sounds. ABSENT: tenderness Extremities exam: ABSENT: pedal edema Musculoskeletal exam: ABSENT: ambulatory Neurological exam: PRESENT: other - sedated Psychiatric exam: PRESENT: other - sedated Skin exam: PRESENT: intact, normal color Results Laboratory Results: 05/06/17 04:06 05/06/17 04:06 05/05/17 05/06/17 05/06/17 08:29 04:06 04:06 WBC 9.5 RBC 2.77 L Hgb 8.7 L Hct 25.0 L MCV 91 MCH 31.6 MCHC 34.9 RDW 14.4 H Plt Count 189 Seg Neutrophils % Not Reportable Lymphocytes % Not Reportable Monocytes % Not Reportable Eosinophils % Not Reportable Basophils % Not Reportable Absolute Neutrophils Not Reportable Absolute Lymphocytes Not Reportable Absolute Monocytes Not Reportable Absolute Eosinophils Not Reportable Absolute Basophils Not Reportable Carbonic Acid 0.83 L HCO3/H2CO3 Ratio 19:1 ABG pH 7.38 ABG pCO2 27.5 L ABG pO2 118.1 H ABG HCO3 15.9 L ABG O2 Saturation 98.3 H ABG Base Excess -8.2 FiO2 35% Sodium 141.0 Potassium 3.2 L Chloride 111 H Carbon Dioxide 19 L Anion Gap 11 BUN 24 H Creatinine 1.43 H Est GFR ( Amer) 43 L Est GFR (Non-Af Amer) 36 L Glucose 88 Uric Acid 3.1 Calcium 7.3 L Phosphorus 3.6 Magnesium 1.7 Total Bilirubin 0.1 L AST 31 ALT 34 Alkaline Phosphatase 54 Total Protein 3.9 L Albumin 2.0 L 05/06/17 04:55 WBC RBC Hgb Hct MCV MCH MCHC RDW Plt Count Seg Neutrophils % Lymphocytes % Monocytes % Eosinophils % Basophils % Absolute Neutrophils Absolute Lymphocytes Absolute Monocytes Absolute Eosinophils Absolute Basophils Carbonic Acid 0.88 L HCO3/H2CO3 Ratio 22:1 ABG pH 7.45 ABG pCO2 29.2 L ABG pO2 127.4 H ABG HCO3 19.7 L ABG O2 Saturation 98.7 H ABG Base Excess -3.8 FiO2 35% Sodium Potassium Chloride Carbon Dioxide Anion Gap BUN Creatinine Est GFR ( Amer) Est GFR (Non-Af Amer) Glucose Uric Acid Calcium Phosphorus Magnesium Total Bilirubin AST ALT Alkaline Phosphatase Total Protein Albumin 05/06/17 04:06 Creatine Kinase 248 H Impressions: Abdomen/Pelvis CT 05/03/17 19:43 IMPRESSION: There is free air and fluid in the abdomen suggestive of gastrointestinal perforation. Site is uncertain. Shoulder X-Ray 05/04/17 00:00 IMPRESSION: Left shoulder arthroplasty. Assessment & Plan - Diagnosis (1) Hypokalemia Is this a current diagnosis for this admission?: Yes Plan: Replace intravenously and trend (2) Hypocalcemia Is this a current diagnosis for this admission?: Yes Plan: Replace. To trend (3) Metabolic acidosis Is this a current diagnosis for this admission?: Yes Plan: Improving (4) Perforated abdominal viscus Is this a current diagnosis for this admission?: Yes Plan: As per primary (5) WONG (acute kidney injury) Is this a current diagnosis for this admission?: Yes Plan: Improving - Time Time Spent with patient: 15-24 minutes Medications reviewed and adjusted accordingly: Yes Anticipated discharge: Other - as per primary - Inpatient Certification Medical Necessity: Other - As per primary Post Hospital Care: Other - As per primary
[2017-05-06] MEDS: OXYCODONE-ACETAMINOPHEN 5-325 MG TABLET PO PRN (20:40)
[2017-05-06] MEDS ORDERED: FUROSEMIDE INJ/PF 20 MG/2 ML SDV IV SCH (22:00)
[2017-05-07] MEDS: NORMAL SALINE 1000 ML 1,000 ML IV PRN (00:28)
[2017-05-07] MEDS: METRONIDAZOLE 500 MG/NS RTU 100 ML IV SCH ×5 (00:28→23:24)
[2017-05-07] MEDS: FENTANYL CITRATE INJ/PF 100 MCG/2 ML AMPUL INJ PRN (02:49)
[2017-05-07 04:35] LABS: HEMATOCRIT 23.8 % (36.0-47.0); HEMOGLOBIN 8.2 g/dL (12.0-15.5); MEAN CORPUSCULAR HEMOGLOBIN 30.6 pg (27.0-33.4); MEAN CORPUSCULAR HGB CONC 34.3 g/dL (32.0-36.0); MEAN CORPUSCULAR VOLUME 89 fl (80-97); PLATELET COUNT 200 10^3/uL (150-450); RED BLOOD COUNT 2.67 10^6/uL (3.72-5.28); RED CELL DISTRIBUTION WIDTH 14.1 % (11.5-14.0); WHITE BLOOD COUNT 9.1 10^3/uL (4.0-10.5)
[2017-05-07 04:39] LABS: INTERNATIONAL RATION (INR) 1.34; PROTHROMBIN TIME 17.4 SEC (11.4-15.4)
[2017-05-07 04:40] LABS: PARTIAL THROMBOPLASTIN TIME 39.5 SEC (23.5-35.8)
[2017-05-07 04:42] LABS: ALANINE AMINOTRANSFERASE 35 U/L (9-52); ALBUMIN 1.9 g/dL (3.5-5.0); ALKALINE PHOSPHATASE 75 U/L (38-126); ANION GAP 9 (5-19); ASPARTATE AMINO TRANSFERASE 31 U/L (14-36); BILIRUBIN,DIRECT 0.3 mg/dL (0.0-0.4); BILIRUBIN,TOTAL 0.3 mg/dL (0.2-1.3); BLOOD UREA NITROGEN 17 mg/dL (7-20); CALCIUM 7.4 mg/dL (8.4-10.2); CARBON DIOXIDE 21 mmol/L (22-30); CHLORIDE 110 mmol/L (98-107); GLUCOSE 80 mg/dL (75-110)
[2017-05-07 04:46] LABS: POTASSIUM 2.7 mmol/L (3.6-5.0)
[2017-05-07 05:13] LABS: ARTERIAL BLOOD BASE EXCESS -1.2 mmol/L; ARTERIAL BLOOD H2CO3 1.07 mmol/L (1.05-1.35); ARTERIAL BLOOD HCO3 22.9 mmol/L (20-26); ARTERIAL BLOOD O2 SATURATION 97.2 % (94-98); ARTERIAL BLOOD PCO2 35.5 mmHg (35-45); ARTERIAL BLOOD PH 7.43 (7.35-7.45); ARTERIAL BLOOD PO2 90.4 mmHg (80-100)
[2017-05-07 05:17] LABS: ARTERIAL BLOOD FIO2 2L
[2017-05-07 05:18] LABS: ABSOLUTE LYMPHOCYTES# (MANUAL) 0.7 10^3/uL (0.5-4.7); ABSOLUTE MONOCYTES # (MANUAL) 0.5 10^3/uL (0.1-1.4); ABSOLUTE NEUTROPHILS# (MANUAL) 7.9 10^3/uL (1.7-8.2); BASOPHILS % (MANUAL) 0 % (0-2); EOSINOPHILS % (MANUAL) 0 % (0-6); LYMPHOCYTES % (MANUAL) 8 % (13-45); MONOCYTES % (MANUAL) 5 % (3-13); SEGMENTED NEUTROPHILS % (MAN) 87 % (42-78); TOTAL CELLS COUNTED 100
[2017-05-07 05:20] LABS: TOXIC GRANULATION 2+; TOXIC VACUOLATION PRESENT
[2017-05-07 05:21] LABS: ANISOCYTOSIS SLIGHT; PLATELET CLUMPS PRESENT; PLATELET COMMENT ADEQUATE; PLATELET GIANT PRESENT; SCHISTOCYTES SLIGHT
[2017-05-07] MEDS ORDERED: POTASSIUM CHLORIDE 10 MEQ TABLET.SA PO STA (05:26)
[2017-05-07] MEDS ORDERED: POTASSIUM CHLORIDE 20 MEQ/15 ML UDCUP PO ONE (05:45)
[2017-05-07] MEDS: POTASSIUM CHLORIDE 20 MEQ/50 ML RTU IV SCH ×2 (05:53→07:49)
[2017-05-07] MEDS: OXYCODONE-ACETAMINOPHEN 5-325 MG TABLET PO PRN (07:48)
--- NOTE | 2017-05-07 07:58 | RADIOLOGY REPORT (SQ) ---
EXAM DESCRIPTION: CHEST SINGLE VIEW CLINICAL HISTORY: 76 years Female, resp fail/pna COMPARISON: 05/06/17. NUMBER OF VIEWS/TECHNIQUE: 1/AP LIMITATIONS: None. FINDINGS: Moderate opacity-layered effusion of the left lung base, normal cardiac silhouette, atherosclerosis, left shoulder arthroplasty, upper abdominal midline clips. No pneumothorax. No acute bone defect. IMPRESSION: Increased moderate left lower lobar opacity/effusion.
[2017-05-07] MEDS: CIPROFLOXACIN 400 MG/D5W RTU 400 MG/200 ML RTUPB IV SCH ×2 (09:18→21:47)
[2017-05-07] MEDS: FAMOTIDINE INJ/PF 20 MG/2 ML SDV IV SCH ×2 (09:18→21:48)
[2017-05-07] MEDS: POTASSIUM CHLORIDE 20 MEQ/15 ML UDCUP PO SCH ×2 (09:20→15:58)
[2017-05-07] MEDS: ONDANSETRON HCL INJ/PF 4 MG/2 ML SDV IV PRN ×2 (09:28→16:03)
[2017-05-07] MEDS ORDERED: POTASSIUM CHLORIDE 10 MEQ TABLET.SA PO SCH (10:00)
[2017-05-07] MEDS ORDERED: POTASSI CL 20 MEQ/50 ML RIDER 20 MEQ/50 ML RTUPB IV ONE (10:00)
[2017-05-07] MEDS ORDERED: MAGNESIUM SULFATE/D5W 1 GM/100 ML RTUPB IV ONE (11:00)
--- NOTE | 2017-05-07 13:14 | PDOC PROGRESS REPORT ---
Subjective Progress Note for:: 05/07/17 Subjective:: patient was sitting up in her chair comfortably. She is currently extubated and does not complain of any SOB. Potassium was lower at 2.7, she has received so far 120mEQ of potassium today. Currently no chest pain or heart palpitations. Urine out put was at 3.8L yesterday. Reason For Visit: PERFORATED SIGMOID COLON Physical Exam Vital Signs: Temp Pulse Resp BP Pulse Ox 99.2 F 99 21 H 137/72 H 99 05/07/17 08:00 05/07/17 08:00 05/07/17 07:51 05/07/17 07:51 05/07/17 07:51 Intake & Output 05/06/17 05/07/17 05/08/17 06:59 06:59 06:59 Intake Total 4253 3176 Output Total 5675 5525 200 Balance -7842 -6369 -200 Weight 83.7 kg 82.6 kg General appearance: PRESENT: no acute distress, well-developed, well-nourished Mouth exam: PRESENT: moist, neck supple Neck exam: PRESENT: full ROM. ABSENT: JVD Respiratory exam: PRESENT: rhonchi - -left lower lobe. ABSENT: accessory muscle use, clear to auscultation deonna, crackles, rales, wheezes Cardiovascular exam: PRESENT: RRR, +S1, +S2 GI/Abdominal exam: PRESENT: soft. ABSENT: firm, guarding, normal bowel sounds, tenderness Extremities exam: PRESENT: pedal edema - -trace+. ABSENT: tenderness Musculoskeletal exam: PRESENT: normal inspection. ABSENT: tenderness Neurological exam: PRESENT: alert, awake, oriented to person, oriented to place , oriented to time, oriented to situation Psychiatric exam: PRESENT: appropriate affect, normal mood Skin exam: PRESENT: dry, intact, warm. ABSENT: cyanosis Results Laboratory Results: 05/07/17 04:05 05/07/17 04:05 05/07/17 05/07/17 05/07/17 04:05 04:05 05:00 WBC 9.1 RBC 2.67 L Hgb 8.2 L Hct 23.8 L MCV 89 MCH 30.6 MCHC 34.3 RDW 14.1 H Plt Count 200 Seg Neutrophils % Not Reportable Lymphocytes % Not Reportable Monocytes % Not Reportable Eosinophils % Not Reportable Basophils % Not Reportable Absolute Neutrophils Not Reportable Absolute Lymphocytes Not Reportable Absolute Monocytes Not Reportable Absolute Eosinophils Not Reportable Absolute Basophils Not Reportable Carbonic Acid 1.07 HCO3/H2CO3 Ratio 21:1 ABG pH 7.43 ABG pCO2 35.5 ABG pO2 90.4 ABG HCO3 22.9 ABG O2 Saturation 97.2 ABG Base Excess -1.2 FiO2 2L Sodium 140.0 Potassium 2.7 L* Chloride 110 H Carbon Dioxide 21 L Anion Gap 9 BUN 17 Creatinine 0.98 Est GFR ( Amer) > 60 Est GFR (Non-Af Amer) 55 L Glucose 80 Calcium 7.4 L Magnesium 1.6 Total Bilirubin 0.3 AST 31 ALT 35 Alkaline Phosphatase 75 Total Protein 4.0 L Albumin 1.9 L 05/06/17 04:06 Creatine Kinase 248 H Impressions: Abdomen/Pelvis CT 05/03/17 19:43 IMPRESSION: There is free air and fluid in the abdomen suggestive of gastrointestinal perforation. Site is uncertain. Shoulder X-Ray 05/04/17 00:00 IMPRESSION: Left shoulder arthroplasty. Chest X-Ray 05/07/17 06:00 IMPRESSION: Increased moderate left lower lobar opacity/effusion. Assessment & Plan - Diagnosis (1) WONG (acute kidney injury) Is this a current diagnosis for this admission?: Yes Plan: creatinine looks to be almost at baseline. Currently in the diuretic phase of healing, stopping Lasix while in that phase. Potassium is lower and magnesium is trending. Recommend scheduled potassium replacement over the weekend. (2) Hypokalemia Is this a current diagnosis for this admission?: Yes Plan: currently has received 120mEQ of potassium. Scheduled for another 80mEQ. Repeating potassium. At this time I will leave potassium replacement to the current primary team. (3) Hypocalcemia Is this a current diagnosis for this admission?: Yes Plan: slowly improving, if it starts trend down, will look to give calcium supplements. (4) Metabolic acidosis Is this a current diagnosis for this admission?: Yes Plan: improving (5) Respiratory failure Is this a current diagnosis for this admission?: Yes Plan: improving - Notes Notes: case was discussed with Dr. Romo.
[2017-05-07 14:45] LABS: ANION GAP 5 (5-19); BLOOD UREA NITROGEN 15 mg/dL (7-20); CALCIUM 7.3 mg/dL (8.4-10.2); CARBON DIOXIDE 23 mmol/L (22-30); CHLORIDE 111 mmol/L (98-107); GLUCOSE 142 mg/dL (75-110); SODIUM 139.2 mmol/L (137-145)
[2017-05-07 14:57] LABS: POTASSIUM 3.8 mmol/L (3.6-5.0)
[2017-05-07] MEDS: ENOXAPARIN SODIUM INJ 40 MG/0.4 ML DISP.SYRIN SUBCUT SCH (15:29)
--- NOTE | 2017-05-07 17:02 | PDOC PROGRESS REPORT ---
Subjective Progress Note for:: 05/07/17 Subjective:: POD #4 s/p sade's procedure for sigmoid perforation. Patient is doing subjectively well. She is sitting OOB Tolerating a clear liquid diet. Colostomy is functioning. Reason For Visit: PERFORATED SIGMOID COLON Physical Exam Vital Signs: Temp Pulse Resp BP Pulse Ox 98.5 F 99 20 103/51 L 98 05/07/17 12:00 05/07/17 08:00 05/07/17 14:51 05/07/17 14:51 05/07/17 14:51 Intake & Output 05/06/17 05/07/17 05/08/17 06:59 06:59 06:59 Intake Total 4259 3176 240 Output Total 5675 5525 390 Balance -1925 -3046 -986 Weight 83.7 kg 82.6 kg General appearance: PRESENT: no acute distress Respiratory exam: PRESENT: clear to auscultation deonna Cardiovascular exam: PRESENT: +S1, +S2 GI/Abdominal exam: PRESENT: soft, other - incision is clean, dry; Colostomy is functioning Neurological exam: PRESENT: alert, awake, oriented to person, oriented to place , oriented to time, oriented to situation, CN II-XII grossly intact. ABSENT: motor sensory deficit Results Laboratory Results: 05/07/17 04:05 05/07/17 14:10 05/07/17 05/07/17 05/07/17 04:05 04:05 05:00 WBC 9.1 RBC 2.67 L Hgb 8.2 L Hct 23.8 L MCV 89 MCH 30.6 MCHC 34.3 RDW 14.1 H Plt Count 200 Seg Neutrophils % Not Reportable Lymphocytes % Not Reportable Monocytes % Not Reportable Eosinophils % Not Reportable Basophils % Not Reportable Absolute Neutrophils Not Reportable Absolute Lymphocytes Not Reportable Absolute Monocytes Not Reportable Absolute Eosinophils Not Reportable Absolute Basophils Not Reportable Carbonic Acid 1.07 HCO3/H2CO3 Ratio 21:1 ABG pH 7.43 ABG pCO2 35.5 ABG pO2 90.4 ABG HCO3 22.9 ABG O2 Saturation 97.2 ABG Base Excess -1.2 FiO2 2L Sodium 140.0 Potassium 2.7 L* Chloride 110 H Carbon Dioxide 21 L Anion Gap 9 BUN 17 Creatinine 0.98 Est GFR ( Amer) > 60 Est GFR (Non-Af Amer) 55 L Glucose 80 Calcium 7.4 L Magnesium 1.6 Total Bilirubin 0.3 AST 31 ALT 35 Alkaline Phosphatase 75 Total Protein 4.0 L Albumin 1.9 L 05/07/17 14:10 WBC RBC Hgb Hct MCV MCH MCHC RDW Plt Count Seg Neutrophils % Lymphocytes % Monocytes % Eosinophils % Basophils % Absolute Neutrophils Absolute Lymphocytes Absolute Monocytes Absolute Eosinophils Absolute Basophils Carbonic Acid HCO3/H2CO3 Ratio ABG pH ABG pCO2 ABG pO2 ABG HCO3 ABG O2 Saturation ABG Base Excess FiO2 Sodium 139.2 Potassium 3.8 D Chloride 111 H Carbon Dioxide 23 Anion Gap 5 BUN 15 Creatinine 0.88 Est GFR ( Amer) > 60 Est GFR (Non-Af Amer) > 60 Glucose 142 H Calcium 7.3 L Magnesium Total Bilirubin AST ALT Alkaline Phosphatase Total Protein Albumin 05/06/17 04:06 Creatine Kinase 248 H Impressions: Abdomen/Pelvis CT 05/03/17 19:43 IMPRESSION: There is free air and fluid in the abdomen suggestive of gastrointestinal perforation. Site is uncertain. Shoulder X-Ray 05/04/17 00:00 IMPRESSION: Left shoulder arthroplasty. Chest X-Ray 05/07/17 06:00 IMPRESSION: Increased moderate left lower lobar opacity/effusion. Assessment & Plan - Diagnosis (1) Perforated abdominal viscus Is this a current diagnosis for this admission?: Yes - Plan Summary Plan Summary: Continue IV antibiotics Advance diet as tolerated. Continue to diuress (albumin is in the 1s) Correct hypokalemia Transfer to regular floor.
[2017-05-08] MEDS: OXYCODONE-ACETAMINOPHEN 5-325 MG TABLET PO PRN (04:12)
[2017-05-08] MEDS: METRONIDAZOLE 500 MG/NS RTU 100 ML IV SCH (06:42)
--- NOTE | 2017-05-08 09:51 | PDOC PROGRESS REPORT ---
Subjective Progress Note for:: 05/08/17 Subjective:: no nausea, vomiting, feels weak Reason For Visit: PERFORATED SIGMOID COLON Physical Exam Vital Signs: Temp Pulse Resp BP Pulse Ox 99.3 F 103 H 16 140/60 H 95 05/08/17 03:43 05/08/17 03:43 05/08/17 03:43 05/08/17 03:43 05/08/17 03:43 Intake & Output 05/07/17 05/08/17 05/09/17 06:59 06:59 06:59 Intake Total 3176 3015 Output Total 5563 1100 Balance -2349 1915 Weight 82.6 kg 88.5 kg General appearance: PRESENT: cooperative Respiratory exam: PRESENT: clear to auscultation deonna Cardiovascular exam: PRESENT: RRR GI/Abdominal exam: PRESENT: diminished bowel sounds, soft, other - colostomy pink, stools in bag Extremities exam: PRESENT: +1 edema Results Laboratory Results: 05/07/17 04:05 05/07/17 14:10 05/07/17 14:10 Sodium 139.2 Potassium 3.8 D Chloride 111 H Carbon Dioxide 23 Anion Gap 5 BUN 15 Creatinine 0.88 Est GFR ( Amer) > 60 Est GFR (Non-Af Amer) > 60 Glucose 142 H Calcium 7.3 L 05/06/17 04:06 Creatine Kinase 248 H Impressions: Abdomen/Pelvis CT 05/03/17 19:43 IMPRESSION: There is free air and fluid in the abdomen suggestive of gastrointestinal perforation. Site is uncertain. Shoulder X-Ray 05/04/17 00:00 IMPRESSION: Left shoulder arthroplasty. Chest X-Ray 05/07/17 06:00 IMPRESSION: Increased moderate left lower lobar opacity/effusion. Assessment & Plan - Diagnosis (1) Perforated abdominal viscus Is this a current diagnosis for this admission?: Yes - Plan Summary Plan Summary: A/ S/p sigmoidectomy/Bianchi's pouch Colostomy working Still peripheral edema elevated BUN/Creat Low Calcium P/ Advance diet Decrease IVF Replace Ca OOB, ambulate with PE
[2017-05-08] MEDS ORDERED: NORMAL SALINE 1000 ML 1,000 ML IV PRN (09:57)
[2017-05-08] MEDS ORDERED: CALCIUM GLUCONATE 1000 MG/10 ML INJ IV ONE ×2 (09:58→11:30)
[2017-05-08] MEDS: CIPROFLOXACIN 400 MG/D5W RTU 400 MG/200 ML RTUPB IV SCH (10:53)
[2017-05-08 11:41] LABS: HEMATOCRIT 24.7 % (36.0-47.0); HEMOGLOBIN 8.3 g/dL (12.0-15.5); MEAN CORPUSCULAR HEMOGLOBIN 30.2 pg (27.0-33.4); MEAN CORPUSCULAR HGB CONC 33.7 g/dL (32.0-36.0); MEAN CORPUSCULAR VOLUME 90 fl (80-97); PLATELET COUNT 241 10^3/uL (150-450); RED BLOOD COUNT 2.75 10^6/uL (3.72-5.28); RED CELL DISTRIBUTION WIDTH 14.2 % (11.5-14.0); WHITE BLOOD COUNT 6.9 10^3/uL (4.0-10.5)
[2017-05-08 11:54] LABS: ANION GAP 5 (5-19); BLOOD UREA NITROGEN 13 mg/dL (7-20); CALCIUM 7.5 mg/dL (8.4-10.2); CARBON DIOXIDE 24 mmol/L (22-30); CHLORIDE 109 mmol/L (98-107); GLUCOSE 109 mg/dL (75-110); POTASSIUM 3.3 mmol/L (3.6-5.0); SODIUM 138.4 mmol/L (137-145)
[2017-05-08 11:57] LABS: ABSOLUTE LYMPHOCYTES# (MANUAL) 1.1 10^3/uL (0.5-4.7); ABSOLUTE MONOCYTES # (MANUAL) 0.3 10^3/uL (0.1-1.4); ABSOLUTE NEUTROPHILS# (MANUAL) 5.3 10^3/uL (1.7-8.2); BAND NEUTROPHILS % (MANUAL) 4 % (3-5); BASOPHILS % (MANUAL) 0 % (0-2); EOSINOPHILS % (MANUAL) 3 % (0-6); LYMPHOCYTES % (MANUAL) 15 % (13-45); MONOCYTES % (MANUAL) 4 % (3-13); SEGMENTED NEUTROPHILS % (MAN) 73 % (42-78); TOTAL CELLS COUNTED 100
[2017-05-08 11:59] LABS: HYPOCHROMASIA SLIGHT; PLATELET COMMENT ADEQUATE
[2017-05-08] MEDS: POTASSI CL 20 MEQ/50 ML RIDER 20 MEQ/50 ML RTUPB IV SCH ×2 (13:14→15:27)
[2017-05-08] MEDS: METRONIDAZOLE 500 MG TABLET PO SCH ×2 (13:24→22:20)
--- NOTE | 2017-05-08 15:07 | PDOC PROGRESS REPORT ---
Subjective Progress Note for:: 05/08/17 Subjective:: Patient relates that she feels still too weak to go home. Patient informed that potassium has been replaced. Patient had been passing gas and stool Review of systems All organ systems evaluated and negative except as in subjective All significant laboratories and diagnostics have been reviewed Reason For Visit: PERFORATED SIGMOID COLON Physical Exam Vital Signs: Temp Pulse Resp BP Pulse Ox 99.3 F 103 H 16 140/60 H 95 05/08/17 03:43 05/08/17 03:43 05/08/17 03:43 05/08/17 03:43 05/08/17 03:43 Intake & Output 05/07/17 05/08/17 05/09/17 06:59 06:59 06:59 Intake Total 3176 2915 Output Total 5565 850 Balance -2349 2065 Weight 82.6 kg 88.5 kg General appearance: PRESENT: no acute distress, cooperative, well-developed, well-nourished Head exam: PRESENT: atraumatic, normocephalic Eye exam: PRESENT: conjunctiva pink, EOMI, PERRLA Ear exam: PRESENT: normal external ear exam Mouth exam: PRESENT: moist Neck exam: PRESENT: full ROM. ABSENT: JVD, lymphadenopathy, tenderness Respiratory exam: ABSENT: clear to auscultation deonna Cardiovascular exam: PRESENT: RRR. ABSENT: diastolic murmur, systolic murmur GI/Abdominal exam: PRESENT: normal bowel sounds, soft, tenderness Extremities exam: PRESENT: full ROM, +1 edema Musculoskeletal exam: PRESENT: ambulatory Neurological exam: PRESENT: alert, awake, oriented to person, oriented to place , oriented to time, oriented to situation, CN II-XII grossly intact Psychiatric exam: PRESENT: depressed Skin exam: PRESENT: intact, normal color Results Laboratory Results: 05/07/17 04:05 05/07/17 14:10 05/07/17 14:10 Sodium 139.2 Potassium 3.8 D Chloride 111 H Carbon Dioxide 23 Anion Gap 5 BUN 15 Creatinine 0.88 Est GFR ( Amer) > 60 Est GFR (Non-Af Amer) > 60 Glucose 142 H Calcium 7.3 L 05/06/17 04:06 Creatine Kinase 248 H Impressions: Abdomen/Pelvis CT 05/03/17 19:43 IMPRESSION: There is free air and fluid in the abdomen suggestive of gastrointestinal perforation. Site is uncertain. Shoulder X-Ray 05/04/17 00:00 IMPRESSION: Left shoulder arthroplasty. Chest X-Ray 05/07/17 06:00 IMPRESSION: Increased moderate left lower lobar opacity/effusion. Assessment & Plan - Diagnosis (1) Hypokalemia Is this a current diagnosis for this admission?: Yes Plan: Continue replacing and trend (2) Hypocalcemia Is this a current diagnosis for this admission?: Yes Plan: Correct with albumin. Normalized (3) Metabolic acidosis Is this a current diagnosis for this admission?: Yes Plan: Resolved (4) Perforated abdominal viscus Is this a current diagnosis for this admission?: Yes Plan: As per primary (5) WONG (acute kidney injury) Is this a current diagnosis for this admission?: Yes Plan: Resolved - Time Time Spent with patient: 15-24 minutes Medications reviewed and adjusted accordingly: Yes Anticipated discharge: Home with Homehealth Within: within 48 hours - Inpatient Certification Based on my medical assessment, after consideration of the patient's comorbidities, presenting symptoms, or acuity I expect that the services needed warrant INPATIENT care.: Yes I certify that my determination is in accordance with my understanding of Medicare's requirements for reasonable and necessary INPATIENT services [42 CFR 412.3e].: Yes Medical Necessity: Need Close Monitoring Due to Risk of Patient Decompensation, Need for Pain Control
[2017-05-08] MEDS: TRAMADOL HCL 50 MG TABLET PO PRN ×2 (15:38→22:20)
[2017-05-08] MEDS ORDERED: CIPROFLOXACIN HCL 500 MG TABLET PO SCH (22:00)
[2017-05-08] MEDS: FAMOTIDINE 20 MG TABLET PO SCH (22:19)
[2017-05-08] MEDS: POTASSIUM CHLORIDE 10 MEQ TABLET.SA PO SCH (22:19)
[2017-05-08] MEDS: HEPARIN SOD (PORCINE) 5,000 UNIT/ML 1 ML SYRINGE SUBCUT SCH (22:20)
[2017-05-09] MEDS: POTASSIUM CHLORIDE 10 MEQ TABLET.SA PO SCH (02:32)
[2017-05-09 04:58] LABS: ABSOLUTE EOSINOPHILS # (AUTO) 0.2 10^3/uL (0.0-0.6); ABSOLUTE LYMPHOCYTES (AUTO) 1.6 10^3/uL (0.5-4.7); ABSOLUTE MONOCYTES (AUTO) 0.8 10^3/uL (0.1-1.4); ABSOLUTE NEUT (AUTO) 6.1 10^3/uL (1.7-8.2); BASOPHILS % (AUTO) 0.4 % (0-2); EOSINOPHILS % (AUTO) 2.3 % (0-6); HEMATOCRIT 24.5 % (36.0-47.0); HEMOGLOBIN 8.5 g/dL (12.0-15.5); LYMPHOCYTES % (AUTO) 18.3 % (13-45); MEAN CORPUSCULAR HEMOGLOBIN 31.1 pg (27.0-33.4); MEAN CORPUSCULAR HGB CONC 34.7 g/dL (32.0-36.0); MEAN CORPUSCULAR VOLUME 89 fl (80-97); MONOCYTES % (AUTO) 9.3 % (3-13); PLATELET COUNT 252 10^3/uL (150-450); RED BLOOD COUNT 2.74 10^6/uL (3.72-5.28); SEGMENTED NEUTROPHILS % (AUTO) 69.7 % (42-78); TOTAL CELLS COUNTED % (AUTO) 100 %; WHITE BLOOD COUNT 8.8 10^3/uL (4.0-10.5)
[2017-05-09 05:20] LABS: ANION GAP 8 (5-19); BLOOD UREA NITROGEN 12 mg/dL (7-20); CALCIUM 7.7 mg/dL (8.4-10.2); CARBON DIOXIDE 26 mmol/L (22-30); CHLORIDE 104 mmol/L (98-107); GLUCOSE 101 mg/dL (75-110); POTASSIUM 3.6 mmol/L (3.6-5.0)
[2017-05-09] MEDS: METRONIDAZOLE 500 MG TABLET PO SCH (06:40)
--- NOTE | 2017-05-09 08:01 | PDOC PROGRESS REPORT ---
Subjective Progress Note for:: 05/09/17 Subjective:: No c/o, comfortable Reason For Visit: PERFORATED SIGMOID COLON Physical Exam Vital Signs: Temp Pulse Resp BP Pulse Ox 98.9 F 108 H 16 134/57 H 96 05/08/17 20:14 05/08/17 20:14 05/08/17 20:14 05/08/17 20:14 05/08/17 20:14 Intake & Output 05/08/17 05/09/17 05/10/17 06:59 06:59 06:59 Intake Total 3015 1170 Output Total 1100 925 Balance 1915 245 Weight 88.5 kg 90.8 kg General appearance: PRESENT: no acute distress Respiratory exam: PRESENT: clear to auscultation deonna Cardiovascular exam: PRESENT: RRR GI/Abdominal exam: PRESENT: normal bowel sounds, soft, other - ostomy= pink with stools Incision= drainage from entire wound Results Laboratory Results: 05/09/17 04:26 05/09/17 04:26 05/08/17 05/08/17 05/08/17 11:07 11:07 18:40 WBC 6.9 RBC 2.75 L Hgb 8.3 L Hct 24.7 L MCV 90 MCH 30.2 MCHC 33.7 RDW 14.2 H Plt Count 241 Seg Neutrophils % Not Reportable Lymphocytes % Not Reportable Monocytes % Not Reportable Eosinophils % Not Reportable Basophils % Not Reportable Absolute Neutrophils Not Reportable Absolute Lymphocytes Not Reportable Absolute Monocytes Not Reportable Absolute Eosinophils Not Reportable Absolute Basophils Not Reportable Sodium 138.4 Potassium 3.3 L 3.5 L Chloride 109 H Carbon Dioxide 24 Anion Gap 5 BUN 13 Creatinine 0.76 Est GFR ( Amer) > 60 Est GFR (Non-Af Amer) > 60 Glucose 109 Calcium 7.5 L Magnesium 05/09/17 05/09/17 04:26 04:26 WBC 8.8 RBC 2.74 L Hgb 8.5 L Hct 24.5 L MCV 89 MCH 31.1 MCHC 34.7 RDW 14.0 Plt Count 252 Seg Neutrophils % 69.7 Lymphocytes % 18.3 Monocytes % 9.3 Eosinophils % 2.3 Basophils % 0.4 Absolute Neutrophils 6.1 Absolute Lymphocytes 1.6 Absolute Monocytes 0.8 Absolute Eosinophils 0.2 Absolute Basophils 0.0 Sodium 138.0 Potassium 3.6 Chloride 104 Carbon Dioxide 26 Anion Gap 8 BUN 12 Creatinine 0.67 Est GFR ( Amer) > 60 Est GFR (Non-Af Amer) > 60 Glucose 101 Calcium 7.7 L Magnesium 1.6 05/06/17 04:06 Creatine Kinase 248 H Impressions: Abdomen/Pelvis CT 05/03/17 19:43 IMPRESSION: There is free air and fluid in the abdomen suggestive of gastrointestinal perforation. Site is uncertain. Shoulder X-Ray 05/04/17 00:00 IMPRESSION: Left shoulder arthroplasty. Chest X-Ray 05/07/17 06:00 IMPRESSION: Increased moderate left lower lobar opacity/effusion. Assessment & Plan - Diagnosis (1) Perforated abdominal viscus Is this a current diagnosis for this admission?: Yes - Plan Summary Plan Summary: A/ POD #6 after sigmoidectomy fpor perforation with colostomy VSS, AF WBC, BMP normal PE: wound infection Ostomy working Tolerating po well P: Open wound at bedside Continue current managmeent Patient can be discharged to home tomorrow by General Surgery viewpoint Resume IV abx
[2017-05-09] MEDS: FAMOTIDINE 20 MG TABLET PO SCH ×2 (09:15→22:04)
--- NOTE | 2017-05-09 09:41 | Operative Report ---
Nonrecallable Operative Report DATE OF SURGERY: 05/09/17 PREOPERATIVE DIAGNOSIS: infected mabdominal midline laparotomy incision POSTOPERATIVE DIAGNOSIS: same OPERATION: bedisde debridment of abdominal woiund SURGEON: KANCHAN TAVAREZ TISSUE REMOVED OR ALTERED: none COMPLICATIONS: none ESTIMATED BLOOD LOSS: none INTRAOPERATIVE FINDINGS: infected subcutaneous tissue, intact fascia PROCEDURE: see dictation
[2017-05-09] MEDS ORDERED: METRONIDAZOLE 500 MG/NS RTU 100 ML IV SCH (10:00)
[2017-05-09] MEDS ORDERED: CIPROFLOXACIN 400 MG/D5W RTU 400 MG/200 ML RTUPB IV SCH (10:00)
[2017-05-09] MEDS ORDERED: KETOROLAC TROMETHAMINE INJ/PF 30 MG/1 ML SDV IV ONE (10:00)
--- NOTE | 2017-05-09 10:59 | OPERATIVE REPORT E ---
Operative Report NAME: JOURDAN PEREZ : 1940 AGE: 76Y DATE OF SURGERY: 05/09/2017 ROOM: 405 PREOPERATIVE DIAGNOSIS: Midline abdominal wound infection. POSTOPERATIVE DIAGNOSIS: Midline abdominal wound infection. OPERATION: Debridement of midline abdominal wound. SURGEON: KANCHAN TAVAREZ M.D. PROCEDURE: It was at the bedside. The patient was placed in the supine position. The abdominal wound was prepped with Betadine, surrounded by sterile towels. Staple remover was utilized for removal of the janene. The wound edges were then gently spread open with a Q-tip. Cultures were aerobic/anaerobic obtained as well as gram-stain. Following this, the wound was irrigated with normal saline, packed with Betadine, soaked 4 x 4s, ABD's and tape. Patient tolerated the procedure well. DICTATING PHYSICIAN: KANCHAN TAVAREZ M.D. [id number] PHY#: [id number] ID: [id number] JOB#: [id number] ACCT: [id number] cc:KANCHAN TAVAREZ M.D. > MTDD
[2017-05-09] MEDS: TRAMADOL HCL 50 MG TABLET PO PRN ×2 (11:11→22:03)
[2017-05-09] MEDS: HEPARIN SOD (PORCINE) 5,000 UNIT/ML 1 ML SYRINGE SUBCUT SCH ×2 (11:11→22:05)
[2017-05-09] MEDS: ONDANSETRON HCL INJ/PF 4 MG/2 ML SDV IV PRN (11:11)
[2017-05-09] MEDS ORDERED: FENTANYL CITRATE INJ/PF 100 MCG/2 ML AMPUL IV PRN (13:19)
--- NOTE | 2017-05-09 15:42 | PDOC PROGRESS REPORT ---
Subjective Progress Note for:: 05/09/17 Subjective:: Patient complains of pain in the wound. Accordingly janene had to be removed because of infection Review of systems All organ systems evaluated and negative except as in subjective All significant laboratories and diagnostics have been reviewed Reason For Visit: PERFORATED SIGMOID COLON Physical Exam Vital Signs: Temp Pulse Resp BP Pulse Ox 98.9 F 108 H 16 134/57 H 96 05/08/17 20:14 05/08/17 20:14 05/08/17 20:14 05/08/17 20:14 05/08/17 20:14 Intake & Output 05/08/17 05/09/17 05/10/17 06:59 06:59 06:59 Intake Total 3015 1170 Output Total 1100 925 Balance 1915 245 Weight 88.5 kg 90.8 kg General appearance: PRESENT: cooperative, obese Head exam: PRESENT: atraumatic, normocephalic Eye exam: PRESENT: conjunctiva pink, EOMI, PERRLA Ear exam: PRESENT: normal external ear exam Mouth exam: PRESENT: moist Neck exam: PRESENT: full ROM. ABSENT: JVD, lymphadenopathy, tenderness Respiratory exam: PRESENT: clear to auscultation deonna Cardiovascular exam: PRESENT: RRR. ABSENT: diastolic murmur, systolic murmur GI/Abdominal exam: PRESENT: hypoactive bowel sounds, tenderness Extremities exam: PRESENT: full ROM Musculoskeletal exam: PRESENT: ambulatory Neurological exam: PRESENT: alert, awake, oriented to person, oriented to place , oriented to time, oriented to situation, CN II-XII grossly intact Psychiatric exam: PRESENT: appropriate affect, normal mood Skin exam: PRESENT: intact, normal color Results Laboratory Results: 05/09/17 04:26 05/09/17 04:26 05/08/17 05/08/17 05/08/17 11:07 11:07 18:40 WBC 6.9 RBC 2.75 L Hgb 8.3 L Hct 24.7 L MCV 90 MCH 30.2 MCHC 33.7 RDW 14.2 H Plt Count 241 Seg Neutrophils % Not Reportable Lymphocytes % Not Reportable Monocytes % Not Reportable Eosinophils % Not Reportable Basophils % Not Reportable Absolute Neutrophils Not Reportable Absolute Lymphocytes Not Reportable Absolute Monocytes Not Reportable Absolute Eosinophils Not Reportable Absolute Basophils Not Reportable Sodium 138.4 Potassium 3.3 L 3.5 L Chloride 109 H Carbon Dioxide 24 Anion Gap 5 BUN 13 Creatinine 0.76 Est GFR ( Amer) > 60 Est GFR (Non-Af Amer) > 60 Glucose 109 Calcium 7.5 L Magnesium 05/09/17 05/09/17 04:26 04:26 WBC 8.8 RBC 2.74 L Hgb 8.5 L Hct 24.5 L MCV 89 MCH 31.1 MCHC 34.7 RDW 14.0 Plt Count 252 Seg Neutrophils % 69.7 Lymphocytes % 18.3 Monocytes % 9.3 Eosinophils % 2.3 Basophils % 0.4 Absolute Neutrophils 6.1 Absolute Lymphocytes 1.6 Absolute Monocytes 0.8 Absolute Eosinophils 0.2 Absolute Basophils 0.0 Sodium 138.0 Potassium 3.6 Chloride 104 Carbon Dioxide 26 Anion Gap 8 BUN 12 Creatinine 0.67 Est GFR ( Amer) > 60 Est GFR (Non-Af Amer) > 60 Glucose 101 Calcium 7.7 L Magnesium 1.6 05/06/17 04:06 Creatine Kinase 248 H Impressions: Abdomen/Pelvis CT 05/03/17 19:43 IMPRESSION: There is free air and fluid in the abdomen suggestive of gastrointestinal perforation. Site is uncertain. Shoulder X-Ray 05/04/17 00:00 IMPRESSION: Left shoulder arthroplasty. Chest X-Ray 05/07/17 06:00 IMPRESSION: Increased moderate left lower lobar opacity/effusion. Assessment & Plan - Diagnosis (1) Hypokalemia Is this a current diagnosis for this admission?: Yes Plan: Replaced (2) Hypocalcemia Is this a current diagnosis for this admission?: Yes Plan: Corrected (3) Metabolic acidosis Is this a current diagnosis for this admission?: Yes Plan: Resolved (4) Perforated abdominal viscus Is this a current diagnosis for this admission?: Yes Plan: As per primary. Discontinue Toradol since patient had an episode of WONG. Also since having wound dehiscence opted to place on Zosyn to cover fro gram positives, ganb and anaerobes. Recommending suspecting MRSA to possibly add vancomycin if there is a concern (5) WONG (acute kidney injury) Is this a current diagnosis for this admission?: Yes Plan: Resolved. Discontinue Toradol IV. - Time Time Spent with patient: 15-24 minutes Medications reviewed and adjusted accordingly: Yes Anticipated discharge: Other - as per primary
[2017-05-09] MEDS ORDERED: PIPERACILLIN/TAZOBACTAM 3.375 GM VIAL IV PRN (17:47)
[2017-05-09] MEDS: PIPERACILLIN SODIUM/TAZOBACTAM 3.375 GM in NORMAL SALINE 100 ML IV SCH (18:45)
[2017-05-10] MEDS: PIPERACILLIN SODIUM/TAZOBACTAM 3.375 GM in NORMAL SALINE 100 ML IV SCH ×4 (00:17→18:25)
[2017-05-10] MEDS: TRAMADOL HCL 50 MG TABLET PO PRN ×3 (05:25→21:37)
[2017-05-10 05:53] LABS: ANION GAP 7 (5-19); BLOOD UREA NITROGEN 16 mg/dL (7-20); CALCIUM 7.8 mg/dL (8.4-10.2); CARBON DIOXIDE 26 mmol/L (22-30); CHLORIDE 103 mmol/L (98-107); GLUCOSE 89 mg/dL (75-110); POTASSIUM 3.8 mmol/L (3.6-5.0); SODIUM 135.5 mmol/L (137-145)
[2017-05-10] MEDS: FAMOTIDINE 20 MG TABLET PO SCH ×2 (10:11→21:37)
[2017-05-10] MEDS: HEPARIN SOD (PORCINE) 5,000 UNIT/ML 1 ML SYRINGE SUBCUT SCH ×2 (10:15→21:36)
--- NOTE | 2017-05-10 18:03 | PDOC PROGRESS REPORT ---
Subjective Progress Note for:: 05/10/17 Subjective:: Patient complains of pain in the wound. Review of systems All organ systems evaluated and negative except as in subjective All significant laboratories and diagnostics have been reviewed Reason For Visit: PERFORATED SIGMOID COLON Physical Exam Vital Signs: Temp Pulse Resp BP Pulse Ox 99.1 F 104 H 16 161/77 H 96 05/09/17 23:03 05/09/17 23:03 05/09/17 23:03 05/09/17 23:03 05/09/17 23:03 Intake & Output 05/09/17 05/10/17 05/11/17 06:59 06:59 06:59 Intake Total 1170 710 Output Total 925 200 Balance 245 510 Weight 90.8 kg 90.8 kg General appearance: PRESENT: cooperative, well-developed, well-nourished Head exam: PRESENT: atraumatic, normocephalic Eye exam: PRESENT: conjunctiva pink, EOMI, PERRLA Ear exam: PRESENT: normal external ear exam Neck exam: PRESENT: full ROM. ABSENT: JVD, lymphadenopathy, tenderness Respiratory exam: PRESENT: clear to auscultation deonna Cardiovascular exam: PRESENT: RRR. ABSENT: diastolic murmur, systolic murmur GI/Abdominal exam: PRESENT: normal bowel sounds, soft, tenderness Extremities exam: PRESENT: full ROM. ABSENT: pedal edema Musculoskeletal exam: PRESENT: ambulatory Neurological exam: PRESENT: alert, awake, oriented to person, oriented to place , oriented to time, oriented to situation, CN II-XII grossly intact Psychiatric exam: PRESENT: depressed Skin exam: PRESENT: normal color Results Laboratory Results: 05/09/17 04:26 05/10/17 05:05 05/10/17 05:05 Sodium 135.5 L Potassium 3.8 Chloride 103 Carbon Dioxide 26 Anion Gap 7 BUN 16 Creatinine 0.73 Est GFR ( Amer) > 60 Est GFR (Non-Af Amer) > 60 Glucose 89 Calcium 7.8 L 05/06/17 04:06 Creatine Kinase 248 H Impressions: Abdomen/Pelvis CT 05/03/17 19:43 IMPRESSION: There is free air and fluid in the abdomen suggestive of gastrointestinal perforation. Site is uncertain. Shoulder X-Ray 05/04/17 00:00 IMPRESSION: Left shoulder arthroplasty. Chest X-Ray 05/07/17 06:00 IMPRESSION: Increased moderate left lower lobar opacity/effusion. Assessment & Plan - Diagnosis (1) Hypokalemia Is this a current diagnosis for this admission?: Yes Plan: Replaced (2) Hypocalcemia Is this a current diagnosis for this admission?: Yes Plan: Corrected (3) Metabolic acidosis Is this a current diagnosis for this admission?: Yes Plan: Resolved (4) Perforated abdominal viscus Is this a current diagnosis for this admission?: Yes Plan: As per primary. Discontinue Toradol since patient had an episode of WONG. Also since having wound dehiscence opted to place on Zosyn to cover fro gram positives, gnb and anaerobes. Recommend that if suspecting MRSA to possibly add vancomycin if there is a concern (5) WONG (acute kidney injury) Is this a current diagnosis for this admission?: Yes Plan: Resolved. Discontinue Toradol IV. - Time Time Spent with patient: Less than 15 minutes Medications reviewed and adjusted accordingly: Yes Anticipated discharge: Home with Homehealth Within: Other - As per primary physician
--- NOTE | 2017-05-10 20:35 | PDOC PROGRESS REPORT ---
Subjective Progress Note for:: 05/10/17 Subjective:: s/p extubation doing well post op Reason For Visit: PERFORATED SIGMOID COLON Physical Exam Vital Signs: Temp Pulse Resp BP Pulse Ox 98.8 F 105 H 16 135/66 H 95 05/10/17 16:51 05/10/17 16:51 05/10/17 16:51 05/10/17 16:51 05/10/17 16:51 Intake & Output 05/09/17 05/10/17 05/11/17 06:59 06:59 06:59 Intake Total 1170 710 820 Output Total 925 200 525 Balance 245 510 295 Weight 90.8 kg 90.8 kg General appearance: PRESENT: no acute distress, cooperative, disheveled, obese, well-developed Head exam: PRESENT: atraumatic, normocephalic Eye exam: PRESENT: conjunctiva pale, EOMI. ABSENT: nystagmus, periorbital swelling, scleral icterus Mouth exam: PRESENT: dry mucosa, neck supple, tongue midline Neck exam: ABSENT: carotid bruit, JVD, lymphadenopathy, thyromegaly, tracheal deviation, tracheostomy Respiratory exam: PRESENT: decreased breath sounds, prolonged expiratory phas, rhonchi, symmetrical, unlabored. ABSENT: retraction, stridor Cardiovascular exam: PRESENT: RRR, +S1, +S2 Pulses: PRESENT: normal radial pulses GI/Abdominal exam: PRESENT: diminished bowel sounds, soft Extremities exam: PRESENT: full ROM. ABSENT: calf tenderness, clubbing, pedal edema, tenderness Musculoskeletal exam: ABSENT: deformity, dislocation Neurological exam: PRESENT: alert, awake Psychiatric exam: PRESENT: flat affect Skin exam: PRESENT: dry, warm Results Laboratory Results: 05/09/17 04:26 05/10/17 05:05 05/10/17 05:05 Sodium 135.5 L Potassium 3.8 Chloride 103 Carbon Dioxide 26 Anion Gap 7 BUN 16 Creatinine 0.73 Est GFR ( Amer) > 60 Est GFR (Non-Af Amer) > 60 Glucose 89 Calcium 7.8 L 05/06/17 04:06 Creatine Kinase 248 H Impressions: Abdomen/Pelvis CT 05/03/17 19:43 IMPRESSION: There is free air and fluid in the abdomen suggestive of gastrointestinal perforation. Site is uncertain. Shoulder X-Ray 05/04/17 00:00 IMPRESSION: Left shoulder arthroplasty. Chest X-Ray 05/07/17 06:00 IMPRESSION: Increased moderate left lower lobar opacity/effusion. Assessment & Plan - Diagnosis (1) Metabolic acidosis Is this a current diagnosis for this admission?: Yes Plan: improving (2) Perforated abdominal viscus Is this a current diagnosis for this admission?: Yes Plan: As per surgery (3) Renal failure Qualifiers: Renal failure chronicity: unspecified chronicity Qualified Code(s): N19 - Unspecified kidney failure Is this a current diagnosis for this admission?: Yes Plan: resolved (4) Respiratory failure Is this a current diagnosis for this admission?: Yes Plan: improving
--- NOTE | 2017-05-10 20:37 | PDOC PROGRESS REPORT ---
Subjective Progress Note for:: 05/07/17 Subjective:: s/p extubation doing well post op Reason For Visit: PERFORATED SIGMOID COLON Physical Exam Vital Signs: Temp Pulse Resp BP Pulse Ox 99.2 F 99 21 H 137/72 H 99 05/07/17 08:00 05/07/17 08:00 05/07/17 07:51 05/07/17 07:51 05/07/17 07:51 Intake & Output 05/06/17 05/07/17 05/08/17 06:59 06:59 06:59 Intake Total 4253 3176 Output Total 5675 5525 200 Balance -6992 -2349 -200 Weight 83.7 kg 82.6 kg General appearance: PRESENT: no acute distress, cooperative, disheveled, obese, well-developed Head exam: PRESENT: atraumatic, normocephalic Eye exam: PRESENT: conjunctiva pale, EOMI. ABSENT: nystagmus, periorbital swelling, scleral icterus Mouth exam: PRESENT: dry mucosa, neck supple, tongue midline Neck exam: ABSENT: carotid bruit, JVD, lymphadenopathy, thyromegaly, tracheal deviation, tracheostomy Respiratory exam: PRESENT: decreased breath sounds, prolonged expiratory phas, rhonchi, symmetrical, unlabored. ABSENT: retraction, stridor, tachypnea Cardiovascular exam: PRESENT: RRR, +S1, +S2 Pulses: PRESENT: normal radial pulses GI/Abdominal exam: PRESENT: diminished bowel sounds, soft Extremities exam: ABSENT: calf tenderness, clubbing Musculoskeletal exam: ABSENT: deformity, dislocation Neurological exam: PRESENT: alert, awake Psychiatric exam: PRESENT: normal mood Skin exam: PRESENT: dry, warm Results Laboratory Results: 05/07/17 04:05 05/07/17 04:05 05/07/17 05/07/17 05/07/17 04:05 04:05 05:00 WBC 9.1 RBC 2.67 L Hgb 8.2 L Hct 23.8 L MCV 89 MCH 30.6 MCHC 34.3 RDW 14.1 H Plt Count 200 Seg Neutrophils % Not Reportable Lymphocytes % Not Reportable Monocytes % Not Reportable Eosinophils % Not Reportable Basophils % Not Reportable Absolute Neutrophils Not Reportable Absolute Lymphocytes Not Reportable Absolute Monocytes Not Reportable Absolute Eosinophils Not Reportable Absolute Basophils Not Reportable Carbonic Acid 1.07 HCO3/H2CO3 Ratio 21:1 ABG pH 7.43 ABG pCO2 35.5 ABG pO2 90.4 ABG HCO3 22.9 ABG O2 Saturation 97.2 ABG Base Excess -1.2 FiO2 2L Sodium 140.0 Potassium 2.7 L* Chloride 110 H Carbon Dioxide 21 L Anion Gap 9 BUN 17 Creatinine 0.98 Est GFR ( Amer) > 60 Est GFR (Non-Af Amer) 55 L Glucose 80 Calcium 7.4 L Magnesium 1.6 Total Bilirubin 0.3 AST 31 ALT 35 Alkaline Phosphatase 75 Total Protein 4.0 L Albumin 1.9 L 05/06/17 04:06 Creatine Kinase 248 H Impressions: Abdomen/Pelvis CT 05/03/17 19:43 IMPRESSION: There is free air and fluid in the abdomen suggestive of gastrointestinal perforation. Site is uncertain. Shoulder X-Ray 05/04/17 00:00 IMPRESSION: Left shoulder arthroplasty. Chest X-Ray 05/07/17 06:00 IMPRESSION: Increased moderate left lower lobar opacity/effusion. Assessment & Plan - Diagnosis (1) Metabolic acidosis Is this a current diagnosis for this admission?: Yes Plan: improving (2) Perforated abdominal viscus Is this a current diagnosis for this admission?: Yes Plan: As per surgery (3) Renal failure Qualifiers: Renal failure chronicity: unspecified chronicity Qualified Code(s): N19 - Unspecified kidney failure Is this a current diagnosis for this admission?: No (4) Respiratory failure Is this a current diagnosis for this admission?: Yes Plan: improving
[2017-05-10] MEDS: DOCUSATE SODIUM 100 MG CAPSULE PO SCH (21:37)
--- NOTE | 2017-05-10 22:04 | PDOC PROGRESS REPORT ---
Subjective Reason For Visit: PERFORATED SIGMOID COLON Tolerating regular diet; ambulating, voiding. Physical Exam Vital Signs: Temp Pulse Resp BP Pulse Ox 98.9 F 104 H 18 135/59 H 97 05/10/17 19:58 05/10/17 19:58 05/10/17 19:58 05/10/17 19:58 05/10/17 19:58 Intake & Output 05/09/17 05/10/17 05/11/17 06:59 06:59 06:59 Intake Total 1170 710 820 Output Total 925 200 525 Balance 245 510 295 Weight 90.8 kg 90.8 kg General appearance: PRESENT: no acute distress GI/Abdominal exam: PRESENT: other - VAC on, good suction; no erythema Results Laboratory Results: 05/09/17 04:26 05/10/17 05:05 05/10/17 05:05 Sodium 135.5 L Potassium 3.8 Chloride 103 Carbon Dioxide 26 Anion Gap 7 BUN 16 Creatinine 0.73 Est GFR ( Amer) > 60 Est GFR (Non-Af Amer) > 60 Glucose 89 Calcium 7.8 L 05/06/17 04:06 Creatine Kinase 248 H Impressions: Abdomen/Pelvis CT 05/03/17 19:43 IMPRESSION: There is free air and fluid in the abdomen suggestive of gastrointestinal perforation. Site is uncertain. Shoulder X-Ray 05/04/17 00:00 IMPRESSION: Left shoulder arthroplasty. Chest X-Ray 05/07/17 06:00 IMPRESSION: Increased moderate left lower lobar opacity/effusion. Assessment & Plan - Diagnosis (1) Wound infection after surgery Qualifiers: Encounter type: subsequent encounter Qualified Code(s): T81.4XXD - Infection following a procedure, subsequent encounter Is this a current diagnosis for this admission?: Yes Plan: Sepsis under control with debridement, VAC Tx, IV abx PLAN: 1. Continue VAC, IV abx 2 Colace BID 3. DIscussed home health, out. pt management; anticipate d/c home in 24-48 hr
[2017-05-11] MEDS: PIPERACILLIN SODIUM/TAZOBACTAM 3.375 GM in NORMAL SALINE 100 ML IV SCH ×5 (00:09→23:43)
[2017-05-11 06:18] LABS: ANION GAP 8 (5-19); BLOOD UREA NITROGEN 12 mg/dL (7-20); CALCIUM 7.6 mg/dL (8.4-10.2); CARBON DIOXIDE 26 mmol/L (22-30); CHLORIDE 100 mmol/L (98-107); GLUCOSE 90 mg/dL (75-110); POTASSIUM 3.4 mmol/L (3.6-5.0); SODIUM 133.6 mmol/L (137-145)
[2017-05-11] MEDS: DOCUSATE SODIUM 100 MG CAPSULE PO SCH ×2 (09:31→22:11)
[2017-05-11] MEDS: FAMOTIDINE 20 MG TABLET PO SCH ×2 (09:31→22:12)
[2017-05-11] MEDS: TRAMADOL HCL 50 MG TABLET PO PRN ×2 (09:31→15:47)
[2017-05-11] MEDS: HEPARIN SOD (PORCINE) 5,000 UNIT/ML 1 ML SYRINGE SUBCUT SCH ×2 (09:32→22:12)
[2017-05-11] MEDS ORDERED: DOCUSATE SODIUM 100 MG CAPSULE PO SCH (10:00)
--- NOTE | 2017-05-11 12:43 | PDOC PROGRESS REPORT ---
Subjective Progress Note for:: 05/11/17 Subjective:: feels weak, has poor appetite Reason For Visit: PERFORATED SIGMOID COLON Physical Exam Vital Signs: Temp Pulse Resp BP Pulse Ox 98.9 F 98 17 121/51 L 97 05/11/17 11:52 05/11/17 11:52 05/11/17 11:52 05/11/17 11:52 05/11/17 11:52 Intake & Output 05/10/17 05/11/17 05/12/17 06:59 06:59 06:59 Intake Total 710 1142 Output Total 200 525 Balance 510 617 Weight 90.8 kg 91.1 kg General appearance: PRESENT: no acute distress Respiratory exam: PRESENT: clear to auscultation deonna Cardiovascular exam: PRESENT: RRR GI/Abdominal exam: PRESENT: normal bowel sounds - ostomy pink, gas and stools, soft Results Laboratory Results: 05/09/17 04:26 05/11/17 05:00 05/11/17 05:00 Sodium 133.6 L Potassium 3.4 L Chloride 100 Carbon Dioxide 26 Anion Gap 8 BUN 12 Creatinine 0.65 Est GFR ( Amer) > 60 Est GFR (Non-Af Amer) > 60 Glucose 90 Calcium 7.6 L 05/06/17 05/11/17 04:06 05:00 Creatine Kinase 248 H NT-Pro-B Natriuret Pep 1740 H Impressions: Abdomen/Pelvis CT 05/03/17 19:43 IMPRESSION: There is free air and fluid in the abdomen suggestive of gastrointestinal perforation. Site is uncertain. Shoulder X-Ray 05/04/17 00:00 IMPRESSION: Left shoulder arthroplasty. Chest X-Ray 05/07/17 06:00 IMPRESSION: Increased moderate left lower lobar opacity/effusion. Assessment & Plan - Diagnosis (1) Perforated abdominal viscus Is this a current diagnosis for this admission?: Yes - Plan Summary Plan Summary: A/ POD#9 after sigmoidectomy, colostomy for perforated sigmoid diverticulitis VSS, AF feels weak with poor appetite ostomy working with gas and feces Blood work shows low Na (133) and low K (3.4) Abdomen soft, WoundVac in place, no cellulitis P/ Continue IV abx I would discontinue IVF because of the low Na, most likely dilutional replace K Continue WoundVac No General Surgery concerns
--- NOTE | 2017-05-11 15:35 | RADIOLOGY REPORT (SQ) ---
EXAM DESCRIPTION: PICC INSERTION COMPLETED DATE/TIME: 05/11/2017 3:27 pm REASON FOR STUDY: need IV access COMPARISON: AP chest 05/07/2017 FLUOROSCOPY TIME: 19 seconds 1 ultrasound and 1 digital chest radiographic images saved to PACS. TECHNIQUE: Fluoroscopic and ultrasound guided PICC placement. LIMITATIONS: None. PROCEDURE: After written consent and assessment were obtained, the patient was brought into the fluo roscopy room and place supine on the table. Ultrasound was used on the patient's right arm for PICC access. The right arm was prepped and draped in a sterile fashion along with the ultrasound probe. Th e entry site was anesthetized with 1% lidocaine. A 21 gauge 7 cm needle was advanced through the skin and into the basilic vein under live ultrasound guidance. An ultrasound image was saved to PACS con firming access site. A .018 guide wire was then inserted through the needle and into the venous syst em. The needle was the removed and an 11 blade scalpel was used to make a 1cm skin incision. A 5 fr peel-away sheath was advanced over the wire and into the venous system. A measurement was then made u sing the existing wire and live fluoroscopic guidance. The wire was then removed and the trimmed. The PICC was advanced through the peel-away sheath and into the venous system. The peel-away sheath was removed and the catheter was adhered to the patients arm with a stat lock. The catheter was then aspi rated and flushed and a sterile bandage was placed over the access site. A fluoroscopic spot image w as saved to PACS confirming the catheter tip within the superior vena cava. IMPRESSION: SUCCESSFUL PLACEMENT OF A 5 FR DUAL LUMEN 32 CM PICC IN THE RIGHT BASILIC VEIN. COMMENT: Patient medication list reviewed: Yes- Quality ID# 130:Eligible professional attests to doc umenting in the medical record they obtained, updated, or reviewed the patient's current medications. . Quality ID 145: Final reports for procedures using fluoroscopy that document radiation exposure puma deondre, or exposure time and number of fluorographic images (if radiation exposure indices are not avail able) Quality ID #76: The patient was prepped and draped using maximum sterile barrier technique including cap, mask, sterile gown, sterile gloves, a large sterile sheet, hand hygiene, and 2% Chlorhexidine fo r cutaneous antisepsis. When ultrasound is used, sterile ultrasound techniques are followed requiring sterile gel and sterile probes. TECHNICAL DOCUMENTATION: JOB ID: [id number] [employer]- All Rights Reserved Reading location - IP/workstation name: [email or web address]
--- NOTE | 2017-05-11 15:42 | RADIOLOGY REPORT (SQ) ---
EXAM DESCRIPTION: CHEST PA/LAT COMPLETED DATE/TIME: 05/11/2017 3:30 pm REASON FOR STUDY: r/o postop pneumonia COMPARISON: None. EXAM PARAMETERS: NUMBER OF VIEWS: two views TECHNIQUE: Digital Frontal and Lateral radiographic views of the chest acquired. RADIATION DOSE: NA LIMITATIONS: none FINDINGS: LUNGS AND PLEURA: A left pleural effusion is present. There is considerable opacification behind the left heart. MEDIASTINUM AND HILAR STRUCTURES: No masses or contour abnormalities. HEART AND VASCULAR STRUCTURES: Heart normal size. No evidence for failure. BONES: No acute findings. HARDWARE: A PICC line is present with the tip in the superior vena cava. OTHER: No other significant finding. IMPRESSION: Left pleural effusion. Cannot exclude left lower lobe consolidation. TECHNICAL DOCUMENTATION: JOB ID: [id number] [employer]- All Rights Reserved Reading location - IP/workstation name: [email or web address]
--- NOTE | 2017-05-11 16:08 | PDOC PROGRESS REPORT ---
Subjective Progress Note for:: 05/11/17 Subjective:: Patient complains of pain in the wound. Also complains of having poor appetite. Review of systems All organ systems evaluated and negative except as in subjective All significant laboratories and diagnostics have been reviewed Reason For Visit: PERFORATED SIGMOID COLON Physical Exam Vital Signs: Temp Pulse Resp BP Pulse Ox 99.2 F 107 H 16 137/52 H 97 05/10/17 23:46 05/10/17 23:46 05/10/17 23:46 05/10/17 23:46 05/10/17 23:46 Intake & Output 05/10/17 05/11/17 05/12/17 06:59 06:59 06:59 Intake Total 710 1142 Output Total 200 525 Balance 510 617 Weight 90.8 kg 91.1 kg General appearance: PRESENT: cooperative, well-developed, well-nourished Head exam: PRESENT: atraumatic, normocephalic Eye exam: PRESENT: conjunctiva pink, EOMI, PERRLA Ear exam: PRESENT: normal external ear exam Mouth exam: PRESENT: moist Neck exam: PRESENT: full ROM. ABSENT: JVD, lymphadenopathy, tenderness Respiratory exam: PRESENT: decreased breath sounds. ABSENT: tachypnea, unlabored, wheezes Cardiovascular exam: PRESENT: RRR. ABSENT: diastolic murmur, systolic murmur Vascular exam: PRESENT: normal capillary refill GI/Abdominal exam: PRESENT: normal bowel sounds, tenderness Extremities exam: PRESENT: full ROM, +1 edema Musculoskeletal exam: PRESENT: ambulatory Neurological exam: PRESENT: alert, awake, oriented to person, oriented to place , oriented to time, CN II-XII grossly intact Psychiatric exam: PRESENT: depressed Skin exam: PRESENT: normal color Results Laboratory Results: 05/09/17 04:26 05/11/17 05:00 05/11/17 05:00 Sodium 133.6 L Potassium 3.4 L Chloride 100 Carbon Dioxide 26 Anion Gap 8 BUN 12 Creatinine 0.65 Est GFR ( Amer) > 60 Est GFR (Non-Af Amer) > 60 Glucose 90 Calcium 7.6 L 05/06/17 04:06 Creatine Kinase 248 H Impressions: Abdomen/Pelvis CT 05/03/17 19:43 IMPRESSION: There is free air and fluid in the abdomen suggestive of gastrointestinal perforation. Site is uncertain. Shoulder X-Ray 05/04/17 00:00 IMPRESSION: Left shoulder arthroplasty. Chest X-Ray 05/07/17 06:00 IMPRESSION: Increased moderate left lower lobar opacity/effusion. Assessment & Plan - Diagnosis (1) Hypokalemia Is this a current diagnosis for this admission?: Yes Plan: Replace orally and trend (2) Hypocalcemia Is this a current diagnosis for this admission?: Yes Plan: Corrected (3) Metabolic acidosis Is this a current diagnosis for this admission?: Yes Plan: Resolved (4) Perforated abdominal viscus Is this a current diagnosis for this admission?: Yes Plan: As per primary. (5) WONG (acute kidney injury) Is this a current diagnosis for this admission?: Yes Plan: Resolved. Discontinue Toradol IV. (6) CHF (congestive heart failure) Qualifiers: Heart failure type: unspecified Heart failure chronicity: unspecified Qualified Code(s): I50.9 - Heart failure, unspecified Is this a current diagnosis for this admission?: Yes Plan: BNP elevated. To place patient on Lasix IV and to order echocardiogram (7) Hyponatremia Is this a current diagnosis for this admission?: Yes Plan: Likely due to fluid overload (8) Anemia Qualifiers: Anemia type: unspecified type Qualified Code(s): D64.9 - Anemia, unspecified Is this a current diagnosis for this admission?: Yes Plan: Appears to be due to occult blood loss however have been stable over the past couple of days - Time Time Spent with patient: 15-24 minutes Anticipated discharge: Other - As per primary
[2017-05-11] MEDS ORDERED: NORMAL SALINE 10 ML SDV (AFTER EACH USE) IV PRN (17:27)
[2017-05-11] MEDS: FUROSEMIDE INJ/PF 20 MG/2 ML SDV IV SCH (18:36)
[2017-05-11] MEDS: POTASSIUM CHLORIDE 10 MEQ TABLET.SA PO SCH (18:37)
[2017-05-11 19:16] LABS: APPEARANCE,URINE CLEAR; BILIRUBIN,URINE NEGATIVE (NEGATIVE); COLOR,URINE YELLOW; GLUCOSE, URINE NEGATIVE (NEGATIVE); KETONES,URINE NEGATIVE (NEGATIVE); LEUKOCYTE ESTERASE,URINE NEGATIVE (NEGATIVE); NITRITE,URINE NEGATIVE (NEGATIVE); PROTEIN,URINE NEGATIVE (NEGATIVE); URINE SPECIFIC GRAVITY 1.009; UROBILINOGEN,URINE NEGATIVE mg/dL (<2.0)
[2017-05-11] MEDS: OLANZAPINE 2.5 MG TABLET PO SCH (22:11)
[2017-05-11] MEDS: NORMAL SALINE 10 ML SDV (SCHEDULED) IV SCH (22:12)
[2017-05-12] MEDS: FUROSEMIDE INJ/PF 20 MG/2 ML SDV IV SCH ×2 (05:40→17:11)
[2017-05-12] MEDS: POTASSIUM CHLORIDE 10 MEQ TABLET.SA PO SCH (05:40)
[2017-05-12] MEDS: PIPERACILLIN SODIUM/TAZOBACTAM 3.375 GM in NORMAL SALINE 100 ML IV SCH ×2 (05:40→11:16)
[2017-05-12 07:17] LABS: ABSOLUTE EOSINOPHILS # (AUTO) 0.2 10^3/uL (0.0-0.6); ABSOLUTE MONOCYTES (AUTO) 0.6 10^3/uL (0.1-1.4); ABSOLUTE NEUT (AUTO) 5.4 10^3/uL (1.7-8.2); BASOPHILS % (AUTO) 0.4 % (0-2); EOSINOPHILS % (AUTO) 2.7 % (0-6); HEMATOCRIT 23.5 % (36.0-47.0); LYMPHOCYTES % (AUTO) 23.9 % (13-45); MEAN CORPUSCULAR HEMOGLOBIN 30.2 pg (27.0-33.4); MEAN CORPUSCULAR HGB CONC 33.9 g/dL (32.0-36.0); MEAN CORPUSCULAR VOLUME 89 fl (80-97); MONOCYTES % (AUTO) 6.8 % (3-13); PLATELET COUNT 366 10^3/uL (150-450); RED BLOOD COUNT 2.64 10^6/uL (3.72-5.28); RED CELL DISTRIBUTION WIDTH 13.6 % (11.5-14.0); SEGMENTED NEUTROPHILS % (AUTO) 66.2 % (42-78); TOTAL CELLS COUNTED % (AUTO) 100 %; WHITE BLOOD COUNT 8.2 10^3/uL (4.0-10.5)
[2017-05-12 07:41] LABS: BLOOD UREA NITROGEN 9 mg/dL (7-20); CALCIUM 7.4 mg/dL (8.4-10.2); CARBON DIOXIDE 30 mmol/L (22-30); CHLORIDE 101 mmol/L (98-107); GLUCOSE 79 mg/dL (75-110); POTASSIUM 3.6 mmol/L (3.6-5.0)
[2017-05-12 07:51] LABS: ANION GAP 4 (5-19)
[2017-05-12] MEDS: ASCORBIC ACID 500 MG TABLET PO SCH ×2 (10:34→17:08)
[2017-05-12] MEDS: LISINOPRIL 5 MG TABLET PO SCH (10:35)
[2017-05-12] MEDS: MULTIVITAMIN TABLET PO SCH (10:35)
[2017-05-12] MEDS: FERROUS SULFATE 325 MG TABLET PO SCH ×2 (10:36→17:08)
[2017-05-12] MEDS: DOCUSATE SODIUM 100 MG CAPSULE PO SCH ×2 (10:36→22:10)
[2017-05-12] MEDS: FAMOTIDINE 20 MG TABLET PO SCH ×2 (10:37→22:10)
[2017-05-12] MEDS: HEPARIN SOD (PORCINE) 5,000 UNIT/ML 1 ML SYRINGE SUBCUT SCH ×2 (10:37→22:11)
[2017-05-12] MEDS: NORMAL SALINE 10 ML SDV (SCHEDULED) IV SCH ×2 (10:40→22:12)
[2017-05-12] MEDS: TRAMADOL HCL 50 MG TABLET PO PRN (11:16)
--- NOTE | 2017-05-12 13:21 | PDOC PROGRESS REPORT ---
Subjective Progress Note for:: 05/12/17 Subjective:: No complaints voiced today Review of systems All organ systems evaluated and negative except as in subjective All significant laboratories and diagnostics have been reviewed Reason For Visit: PERFORATED SIGMOID COLON Physical Exam Vital Signs: Temp Pulse Resp BP Pulse Ox 99.5 F 102 H 14 140/56 H 94 05/11/17 23:49 05/11/17 23:49 05/11/17 23:49 05/11/17 23:49 05/11/17 23:49 Intake & Output 05/10/17 05/11/17 05/12/17 06:59 06:59 06:59 Intake Total 710 1142 1042 Output Total 200 525 600 Balance 510 617 442 Weight 90.8 kg 91.1 kg 87 kg General appearance: PRESENT: cooperative, obese Head exam: PRESENT: atraumatic, normocephalic Eye exam: PRESENT: conjunctiva pink, EOMI, PERRLA Ear exam: PRESENT: normal external ear exam Mouth exam: PRESENT: moist Neck exam: PRESENT: full ROM. ABSENT: JVD, lymphadenopathy, tenderness Respiratory exam: PRESENT: clear to auscultation deonna Cardiovascular exam: PRESENT: RRR. ABSENT: diastolic murmur, systolic murmur Vascular exam: PRESENT: normal capillary refill GI/Abdominal exam: PRESENT: guarding - 3+ edema of upper or lower extremities, normal bowel sounds, tenderness Extremities exam: PRESENT: full ROM Neurological exam: PRESENT: alert, awake, oriented to person, oriented to place , oriented to time, oriented to situation, CN II-XII grossly intact Psychiatric exam: PRESENT: appropriate affect, normal mood Skin exam: PRESENT: pallor Results Laboratory Results: 05/09/17 04:26 05/11/17 05:00 05/11/17 18:45 Urine Color YELLOW Urine Appearance CLEAR Urine pH 6.0 Ur Specific [place] 1.009 Urine Protein NEGATIVE Urine Glucose (UA) NEGATIVE Urine Ketones NEGATIVE Urine Blood SMALL H Urine Nitrite NEGATIVE Ur Leukocyte Esterase NEGATIVE Urine WBC (Auto) 1 Urine RBC (Auto) 1 05/06/17 05/11/17 04:06 05:00 Creatine Kinase 248 H NT-Pro-B Natriuret Pep 1740 H Impressions: Abdomen/Pelvis CT 05/03/17 19:43 IMPRESSION: There is free air and fluid in the abdomen suggestive of gastrointestinal perforation. Site is uncertain. Shoulder X-Ray 05/04/17 00:00 IMPRESSION: Left shoulder arthroplasty. Chest X-Ray 05/11/17 00:00 IMPRESSION: Left pleural effusion. Cannot exclude left lower lobe consolidation. PICC Line Insertion 05/11/17 00:00 IMPRESSION: SUCCESSFUL PLACEMENT OF A 5 FR DUAL LUMEN 32 CM PICC IN THE RIGHT BASILIC VEIN. Assessment & Plan - Diagnosis (1) Hypokalemia Is this a current diagnosis for this admission?: Yes Plan: Replaced Cut down on daily oral replacement (2) Hypocalcemia Is this a current diagnosis for this admission?: Yes Plan: Corrected (3) Metabolic acidosis Is this a current diagnosis for this admission?: Yes Plan: Resolved (4) Perforated abdominal viscus Is this a current diagnosis for this admission?: Yes Plan: As per primary. Add vitamin C multivitamins for wound healing (5) WONG (acute kidney injury) Is this a current diagnosis for this admission?: Yes Plan: Resolved. (6) CHF (congestive heart failure) Qualifiers: Heart failure type: unspecified Heart failure chronicity: unspecified Qualified Code(s): I50.9 - Heart failure, unspecified Is this a current diagnosis for this admission?: Yes Plan: BNP elevated. Awaiting echocardiogram report. Continue Lasix IV and low-dose lisinopril since blood pressure on the high side. Patient denies history of hypertension (7) Hyponatremia Is this a current diagnosis for this admission?: Yes Plan: Likely due to fluid overload. Improving. (8) Anemia Qualifiers: Anemia type: unspecified type Qualified Code(s): D64.9 - Anemia, unspecified Is this a current diagnosis for this admission?: Yes Plan: Slowly trending downward. Will consider transfusing if less than 8. To start iron supplementation. Patient informed about the downward trend of hemoglobin (9) Pleural effusion due to CHF (congestive heart failure) Is this a current diagnosis for this admission?: Yes Plan: My opinion relates to fluid overload. Patient on Zosyn (10) Poor appetite Is this a current diagnosis for this admission?: Yes Plan: Continue oral zyprexa - Time Time Spent with patient: 15-24 minutes Medications reviewed and adjusted accordingly: Yes Anticipated discharge: Home with Homehealth Within: Other - As per primary
--- NOTE | 2017-05-12 13:26 | XCELERA REPORT ---
[address] [address] Transthoracic Echocardiogram Report Name: JOURDAN PEREZ Age: 76 yrs Gender: Female : 1940 Patient Status: Inpatient Patient Location: [address] [place] [address] Study Date: 05/12/2017 11:43 AM Height: 65 in Weight: 200 lb BSA: 2.0 m2 Procedure: A complete two-dimensional transthoracic echocardiogram was performed (2D, M-mode, spectral and color flow Doppler). The study was technically adequate with some images being suboptimal in quality. Reason For Study: chf Ordering Physician: NED PECK Performed By: Heena Pablo Interpretation Summary The left ventricular ejection fraction is normal. There is borderline concentric left ventricular hypertrophy. Doppler measurements suggest pseudonormalized left ventricular relaxation, which is associated with grade II/IV or mild to moderate diastolic dysfunction The left ventricle is grossly normal size. Wall motion cannot be accurately commented on, but no definite regional wall motion abnormalities noted. The right ventricular systolic function is normal. The left atrial size is normal. The right atrium is normal in size There is a trace to mild amount of mitral regurgitation There is no mitral valve stenosis. No aortic regurgitation is present. There is no aortic valve stenosis There is a trace or physiologic amount of tricuspid regurgitation Tricuspid regurgitation jet envelope not well defined to measure RV systolic pressure accurately. The aortic root is not well visualized but is probably normal size. The inferior vena cava was not visualized Minimal pericardial effusion. MMode/2D Measurements & Calculations RVDd: 2.4 cm LVIDd: 4.2 cm FS: 33.5 % Ao root diam: 3.2 cm IVSd: 0.96 cm LVIDs: 2.8 cm EDV(Teich): 80.4 ml LVPWd: 0.97 cmESV(Teich): 30.1 ml Ao root area: 7.9 cm2 EF(Teich): 62.5 % LA dimension: 3.0 cm LVOT diam: 2.1 cm LVOT area: 3.3 cm2 Doppler Measurements & Calculations MV E max kenna: MV P1/2t max kenna: Ao V2 max: LV V1 max P.4 cm/sec 70.3 cm/sec 173.1 cm/sec 8.4 mmHg MV A max kenna: MV P1/2t: 58.0 msec Ao max PG: LV V1 max: 71.3 cm/sec MVA(P1/2t): 3.8 cm2 12.0 mmHg 145.1 cm/sec MV E/A: 0.97 MV dec slope: RISSA(V,D): 2.8 cm2 355.2 cm/sec2 PA V2 max: TR max kenna: 86.4 cm/sec 259.5 cm/sec PA max PG: TR max P.9 mmHg 3.0 mmHg Left Ventricle The left ventricle is grossly normal size. There is borderline concentric left ventricular hypertrophy. The left ventricular ejection fraction is normal. Doppler measurements suggest pseudonormalized left ventricular relaxation, which is associated with grade II/IV or mild to moderate diastolic dysfunction. Wall motion cannot be accurately commented on, but no definite regional wall motion abnormalities noted. Right Ventricle The right ventricle is grossly normal size. There is normal right ventricular wall thickness. The right ventricular systolic function is normal. Atria The right atrium is normal in size. The left atrial size is normal. Interarterial septum not well visualized and not well dopplered. Cannot comment on ASD/PFO presence. Mitral Valve The mitral valve is grossly normal. There is no mitral valve stenosis. There is a trace to mild amount of mitral regurgitation. Aortic Valve The aortic valve is grossly normal. There is no aortic valve stenosis. No aortic regurgitation is present. Tricuspid Valve The tricuspid valve is not well visualized, but is grossly normal. There is no tricuspid stenosis. There is a trace or physiologic amount of tricuspid regurgitation. Tricuspid regurgitation jet envelope not well defined to measure RV systolic pressure accurately. Pulmonic Valve The pulmonic valve is not well visualized. Great Vessels The aortic root is not well visualized but is probably normal size. The inferior vena cava was not visualized. Effusions Minimal pericardial effusion. : NED PECK > Sheba Faye
[2017-05-12] MEDS ORDERED: LINEZOLID 300 ML IV ONE (15:00)
--- NOTE | 2017-05-12 15:23 | PDOC PROGRESS REPORT ---
Subjective Progress Note for:: 05/12/17 Subjective:: patient appears weak Reason For Visit: PERFORATED SIGMOID COLON Physical Exam Vital Signs: Temp Pulse Resp BP Pulse Ox 99.0 F 94 17 130/39 H 98 05/12/17 12:03 05/12/17 12:03 05/12/17 12:03 05/12/17 12:03 05/12/17 12:03 Intake & Output 05/11/17 05/12/17 05/13/17 06:59 06:59 06:59 Intake Total 1142 1042 Output Total 525 600 Balance 617 442 Weight 91.1 kg 87 kg General appearance: PRESENT: other - tired and sleepy Respiratory exam: PRESENT: clear to auscultation deonna Cardiovascular exam: PRESENT: RRR GI/Abdominal exam: PRESENT: soft, other - ostomy pink with stools inside ostomy bag Results Laboratory Results: 05/12/17 05:50 05/12/17 05:50 05/11/17 05/12/17 05/12/17 18:45 05:50 05:50 WBC 8.2 RBC 2.64 L Hgb 8.0 L Hct 23.5 L MCV 89 MCH 30.2 MCHC 33.9 RDW 13.6 Plt Count 366 Seg Neutrophils % 66.2 Lymphocytes % 23.9 Monocytes % 6.8 Eosinophils % 2.7 Basophils % 0.4 Absolute Neutrophils 5.4 Absolute Lymphocytes 2.0 Absolute Monocytes 0.6 Absolute Eosinophils 0.2 Absolute Basophils 0.0 Sodium 135.0 L Potassium 3.6 Chloride 101 Carbon Dioxide 30 Anion Gap 4 L BUN 9 Creatinine 0.76 Est GFR ( Amer) > 60 Est GFR (Non-Af Amer) > 60 Glucose 79 Calcium 7.4 L Urine Color YELLOW Urine Appearance CLEAR Urine pH 6.0 Ur Specific [place] 1.009 Urine Protein NEGATIVE Urine Glucose (UA) NEGATIVE Urine Ketones NEGATIVE Urine Blood SMALL H Urine Nitrite NEGATIVE Ur Leukocyte Esterase NEGATIVE Urine WBC (Auto) 1 Urine RBC (Auto) 1 05/09/17 08:45 Abdomen - Incision Site Gram Stain - Final 05/09/17 08:45 Abdomen - Incision Site Wound Culture - Final Enterococcus Faecalis(Group D) No Anaerobic Organisms 05/06/17 05/11/17 04:06 05:00 Creatine Kinase 248 H NT-Pro-B Natriuret Pep 1740 H Impressions: Abdomen/Pelvis CT 05/03/17 19:43 IMPRESSION: There is free air and fluid in the abdomen suggestive of gastrointestinal perforation. Site is uncertain. Shoulder X-Ray 05/04/17 00:00 IMPRESSION: Left shoulder arthroplasty. Chest X-Ray 05/11/17 00:00 IMPRESSION: Left pleural effusion. Cannot exclude left lower lobe consolidation. PICC Line Insertion 05/11/17 00:00 IMPRESSION: SUCCESSFUL PLACEMENT OF A 5 FR DUAL LUMEN 32 CM PICC IN THE RIGHT BASILIC VEIN. Assessment & Plan - Diagnosis (1) Perforated abdominal viscus Is this a current diagnosis for this admission?: Yes - Plan Summary Plan Summary: A/ S/p Sigmoidectomy and coslostomy for perforated diverticulitits Low grade temperature WBC argelia Cx from abdominal wound positive for enterococcus Patient on Zyvox abdominal wound examined after removal of WoundVac: well granulating, clean, no odor, no fascial defect P/ Zyvox to be replaced by Unasyn Obtain CT scan A/P with IV/oral contrast tomorrow to rule out a possible intraabdominal fluidd collection which could explain the lack of clinical progress
--- NOTE | 2017-05-12 15:48 | PDOC PROGRESS REPORT ---
Subjective Progress Note for:: 05/12/17 Subjective:: Patient at the time had no complaints. She denied SOB, cough, fever or sputum production. Currently still has some swelling on her legs. She is getting an echo today. In's and out's are not accurate according to the nursing staff this morning. Reason For Visit: PERFORATED SIGMOID COLON Physical Exam Vital Signs: Temp Pulse Resp BP Pulse Ox 99.0 F 94 17 130/39 H 98 05/12/17 12:03 05/12/17 12:03 05/12/17 12:03 05/12/17 12:03 05/12/17 12:03 Intake & Output 05/11/17 05/12/17 05/13/17 06:59 06:59 06:59 Intake Total 1142 1042 Output Total 525 600 Balance 617 442 Weight 91.1 kg 87 kg General appearance: PRESENT: no acute distress, well-developed, well-nourished Mouth exam: PRESENT: moist, neck supple Neck exam: PRESENT: full ROM. ABSENT: JVD, tracheal deviation Respiratory exam: PRESENT: clear to auscultation deonna. ABSENT: accessory muscle use, crackles, rales, rhonchi, wheezes Cardiovascular exam: PRESENT: RRR, +S1, +S2 GI/Abdominal exam: PRESENT: soft. ABSENT: firm, guarding, normal bowel sounds, tenderness Extremities exam: PRESENT: pedal edema, tenderness, +1 edema Musculoskeletal exam: PRESENT: tenderness. ABSENT: normal inspection Neurological exam: PRESENT: alert, awake, oriented to person, oriented to place , oriented to time, oriented to situation Psychiatric exam: PRESENT: appropriate affect, normal mood Skin exam: PRESENT: dry, intact, warm Results Laboratory Results: 05/12/17 05:50 05/12/17 05:50 05/11/17 05/12/17 05/12/17 18:45 05:50 05:50 WBC 8.2 RBC 2.64 L Hgb 8.0 L Hct 23.5 L MCV 89 MCH 30.2 MCHC 33.9 RDW 13.6 Plt Count 366 Seg Neutrophils % 66.2 Lymphocytes % 23.9 Monocytes % 6.8 Eosinophils % 2.7 Basophils % 0.4 Absolute Neutrophils 5.4 Absolute Lymphocytes 2.0 Absolute Monocytes 0.6 Absolute Eosinophils 0.2 Absolute Basophils 0.0 Sodium 135.0 L Potassium 3.6 Chloride 101 Carbon Dioxide 30 Anion Gap 4 L BUN 9 Creatinine 0.76 Est GFR ( Amer) > 60 Est GFR (Non-Af Amer) > 60 Glucose 79 Calcium 7.4 L Urine Color YELLOW Urine Appearance CLEAR Urine pH 6.0 Ur Specific [place] 1.009 Urine Protein NEGATIVE Urine Glucose (UA) NEGATIVE Urine Ketones NEGATIVE Urine Blood SMALL H Urine Nitrite NEGATIVE Ur Leukocyte Esterase NEGATIVE Urine WBC (Auto) 1 Urine RBC (Auto) 1 05/09/17 08:45 Abdomen - Incision Site Gram Stain - Final 05/09/17 08:45 Abdomen - Incision Site Wound Culture - Final Enterococcus Faecalis(Group D) No Anaerobic Organisms 05/06/17 05/11/17 04:06 05:00 Creatine Kinase 248 H NT-Pro-B Natriuret Pep 1740 H Impressions: Abdomen/Pelvis CT 05/03/17 19:43 IMPRESSION: There is free air and fluid in the abdomen suggestive of gastrointestinal perforation. Site is uncertain. Shoulder X-Ray 05/04/17 00:00 IMPRESSION: Left shoulder arthroplasty. Chest X-Ray 05/11/17 00:00 IMPRESSION: Left pleural effusion. Cannot exclude left lower lobe consolidation. PICC Line Insertion 05/11/17 00:00 IMPRESSION: SUCCESSFUL PLACEMENT OF A 5 FR DUAL LUMEN 32 CM PICC IN THE RIGHT BASILIC VEIN. Assessment & Plan - Diagnosis (1) WONG (acute kidney injury) Is this a current diagnosis for this admission?: Yes Plan: looks to be at baseline. At this time nephrology is going to sign off this case. The edema does not look to be coming from kidney disease. We will still observe the patients labs and case daily. Recommend follow up with Dr. Romo at his office in two weeks from the date she is discharged. (2) Hypokalemia Is this a current diagnosis for this admission?: Yes Plan: currently controlled on daily potassium replacement (3) Hypocalcemia Is this a current diagnosis for this admission?: Yes (4) Metabolic acidosis Is this a current diagnosis for this admission?: Yes Plan: stable (5) Respiratory failure Is this a current diagnosis for this admission?: Yes Plan: resolved
[2017-05-12] MEDS: AMPICILLIN SODIUM/SULBACTAM NA 3 GM in NORMAL SALINE 100 ML IV SCH ×2 (17:09→23:43)
[2017-05-12] MEDS: OXYCODONE-ACETAMINOPHEN 5-325 MG TABLET PO PRN (19:30)
[2017-05-12] MEDS ORDERED: LINEZOLID 300 ML IV SCH (22:00)
[2017-05-12] MEDS: NORMAL SALINE INJ/PF 0.9% 10 ML SDV IV PRN (22:10)
[2017-05-12] MEDS: OLANZAPINE 2.5 MG TABLET PO SCH (22:10)
[2017-05-13] MEDS: AMPICILLIN SODIUM/SULBACTAM NA 3 GM in NORMAL SALINE 100 ML IV SCH ×4 (06:50→23:01)
[2017-05-13] MEDS: FUROSEMIDE INJ/PF 20 MG/2 ML SDV IV SCH (06:50)
[2017-05-13 07:10] LABS: ABSOLUTE EOSINOPHILS # (AUTO) 0.3 10^3/uL (0.0-0.6); ABSOLUTE LYMPHOCYTES (AUTO) 2.1 10^3/uL (0.5-4.7); ABSOLUTE MONOCYTES (AUTO) 0.7 10^3/uL (0.1-1.4); ABSOLUTE NEUT (AUTO) 5.5 10^3/uL (1.7-8.2); BASOPHILS % (AUTO) 0.6 % (0-2); HEMATOCRIT 22.9 % (36.0-47.0); LYMPHOCYTES % (AUTO) 23.9 % (13-45); MEAN CORPUSCULAR HEMOGLOBIN 30.3 pg (27.0-33.4); MEAN CORPUSCULAR HGB CONC 34.1 g/dL (32.0-36.0); MEAN CORPUSCULAR VOLUME 89 fl (80-97); MONOCYTES % (AUTO) 8.5 % (3-13); PLATELET COUNT 383 10^3/uL (150-450); RED BLOOD COUNT 2.57 10^6/uL (3.72-5.28); TOTAL CELLS COUNTED % (AUTO) 100 %; WHITE BLOOD COUNT 8.6 10^3/uL (4.0-10.5)
[2017-05-13 07:37] LABS: HEMOGLOBIN 7.8 g/dL (12.0-15.5)
[2017-05-13] MEDS ORDERED: NORMAL SALINE 250 ML IV PRN ×3 (07:50→11:33)
[2017-05-13 08:11] LABS: ANION GAP 7 (5-19); BLOOD UREA NITROGEN 9 mg/dL (7-20); CALCIUM 7.7 mg/dL (8.4-10.2); CARBON DIOXIDE 30 mmol/L (22-30); CHLORIDE 100 mmol/L (98-107); GLUCOSE 89 mg/dL (75-110); POTASSIUM 3.5 mmol/L (3.6-5.0); SODIUM 136.6 mmol/L (137-145)
[2017-05-13] MEDS ORDERED: LANSOPRAZOLE 30 MG TAB.RAP.DR PO ONE (08:15)
[2017-05-13] MEDS ORDERED: ONDANSETRON HCL INJ/PF 4 MG/2 ML SDV IV PRN (08:30)
[2017-05-13] MEDS: HEPARIN SOD (PORCINE) 5,000 UNIT/ML 1 ML SYRINGE SUBCUT SCH ×2 (09:24→22:46)
[2017-05-13] MEDS: FERROUS SULFATE 325 MG TABLET PO SCH ×2 (09:25→17:52)
[2017-05-13] MEDS: LISINOPRIL 5 MG TABLET PO SCH (09:25)
[2017-05-13] MEDS: MULTIVITAMIN TABLET PO SCH (09:26)
[2017-05-13] MEDS: ASCORBIC ACID 500 MG TABLET PO SCH ×2 (09:26→17:52)
[2017-05-13] MEDS: DOCUSATE SODIUM 100 MG CAPSULE PO SCH ×2 (09:26→22:46)
[2017-05-13] MEDS: NORMAL SALINE 10 ML SDV (SCHEDULED) IV SCH ×2 (09:36→22:46)
[2017-05-13] MEDS ORDERED: POTASSIUM CHLORIDE 10 MEQ TABLET.SA PO SCH (10:00)
[2017-05-13] MEDS: OXYCODONE-ACETAMINOPHEN 5-325 MG TABLET PO PRN (10:22)
--- NOTE | 2017-05-13 11:33 | PDOC PROGRESS REPORT ---
Subjective Progress Note for:: 05/13/17 Subjective:: Generalized weakness. Poor appetite. No nausea vomiting. Minimal abdominal pain. Reason For Visit: PERFORATED SIGMOID COLON Physical Exam Vital Signs: Temp Pulse Resp BP Pulse Ox 99.0 F 103 H 12 108/44 L 96 05/13/17 11:25 05/13/17 11:25 05/13/17 11:25 05/13/17 11:25 05/13/17 11:25 Intake & Output 05/12/17 05/13/17 05/14/17 06:59 06:59 06:59 Intake Total 1042 856 0 Output Total 600 1725 Balance 442 -869 0 Weight 87 kg 89.5 kg General appearance: PRESENT: no acute distress, cooperative Respiratory exam: PRESENT: clear to auscultation deonna Cardiovascular exam: PRESENT: tachycardia GI/Abdominal exam: PRESENT: other - Soft, nondistended, wound VAC in place. Minimal tenderness. Ostomy functioning well. Results Laboratory Results: 05/13/17 06:59 05/13/17 06:59 05/13/17 05/13/17 05/13/17 06:59 06:59 09:04 WBC 8.6 RBC 2.57 L Hgb 7.8 L Hct 22.9 L MCV 89 MCH 30.3 MCHC 34.1 RDW 14.0 Plt Count 383 Seg Neutrophils % 64.0 Lymphocytes % 23.9 Monocytes % 8.5 Eosinophils % 3.0 Basophils % 0.6 Absolute Neutrophils 5.5 Absolute Lymphocytes 2.1 Absolute Monocytes 0.7 Absolute Eosinophils 0.3 Absolute Basophils 0.0 Sodium 136.6 L Potassium 3.5 L Chloride 100 Carbon Dioxide 30 Anion Gap 7 BUN 9 Creatinine 0.72 Est GFR ( Amer) > 60 Est GFR (Non-Af Amer) > 60 Glucose 89 Calcium 7.7 L Blood Type O POSITIVE Antibody Screen NEGATIVE 05/11/17 18:45 Clean Catch Midstream Urine Culture - Final NO GROWTH 2 DAYS 05/09/17 08:45 Abdomen - Incision Site Gram Stain - Final 05/09/17 08:45 Abdomen - Incision Site Wound Culture - Final Enterococcus Faecalis(Group D) No Anaerobic Organisms 05/06/17 05/11/17 04:06 05:00 Creatine Kinase 248 H NT-Pro-B Natriuret Pep 1740 H Impressions: Abdomen/Pelvis CT 05/03/17 19:43 IMPRESSION: There is free air and fluid in the abdomen suggestive of gastrointestinal perforation. Site is uncertain. Shoulder X-Ray 05/04/17 00:00 IMPRESSION: Left shoulder arthroplasty. Chest X-Ray 05/11/17 00:00 IMPRESSION: Left pleural effusion. Cannot exclude left lower lobe consolidation. PICC Line Insertion 05/11/17 00:00 IMPRESSION: SUCCESSFUL PLACEMENT OF A 5 FR DUAL LUMEN 32 CM PICC IN THE RIGHT BASILIC VEIN. Assessment & Plan - Diagnosis (1) Perforated abdominal viscus Is this a current diagnosis for this admission?: Yes Plan: Perforated sigmoid diverticulitis status post sigmoidectomy with end colostomy. Patient with failure to thrive since surgery she has significant anemia with tachycardia. I do not think she has an acute bleed. Hematocrit has been low since her surgery and has drifted down slightly. I believe she is symptomatic from her anemia. will give her 2 units of packed RBCs. I discussed with the patient the risk and benefits of a transfusion.
--- NOTE | 2017-05-13 12:18 | PDOC PROGRESS REPORT ---
Subjective Progress Note for:: 05/13/17 Subjective:: No complaints voiced. States that her appetite is slowly picking up Review of systems All organ systems evaluated and negative except as in subjective All significant laboratories and diagnostics have been reviewed Reason For Visit: PERFORATED SIGMOID COLON Physical Exam Vital Signs: Temp Pulse Resp BP Pulse Ox 99.6 F 109 H 20 127/54 H 95 05/12/17 23:25 05/12/17 23:25 05/12/17 23:25 05/12/17 23:25 05/12/17 23:25 Intake & Output 05/12/17 05/13/17 05/14/17 06:59 06:59 06:59 Intake Total 1042 856 Output Total 600 1725 Balance 442 -869 Weight 87 kg 89.5 kg General appearance: PRESENT: no acute distress, cooperative, well-developed, well-nourished Head exam: PRESENT: atraumatic, normocephalic Eye exam: PRESENT: conjunctiva pale, EOMI, PERRLA Ear exam: PRESENT: normal external ear exam Mouth exam: PRESENT: neck supple Neck exam: PRESENT: full ROM. ABSENT: JVD, lymphadenopathy, tenderness Respiratory exam: PRESENT: clear to auscultation deonna Cardiovascular exam: PRESENT: RRR. ABSENT: diastolic murmur, systolic murmur Vascular exam: PRESENT: normal capillary refill GI/Abdominal exam: PRESENT: guarding, normal bowel sounds, tenderness Extremities exam: PRESENT: full ROM, +1 edema Musculoskeletal exam: PRESENT: ambulatory Neurological exam: PRESENT: alert, awake, oriented to person, oriented to place , oriented to time, oriented to situation, CN II-XII grossly intact Psychiatric exam: PRESENT: appropriate affect, normal mood Skin exam: PRESENT: normal color Results Laboratory Results: 05/12/17 05/12/17 05:50 05:50 WBC 8.2 RBC 2.64 L Hgb 8.0 L Hct 23.5 L MCV 89 MCH 30.2 MCHC 33.9 RDW 13.6 Plt Count 366 Seg Neutrophils % 66.2 Lymphocytes % 23.9 Monocytes % 6.8 Eosinophils % 2.7 Basophils % 0.4 Absolute Neutrophils 5.4 Absolute Lymphocytes 2.0 Absolute Monocytes 0.6 Absolute Eosinophils 0.2 Absolute Basophils 0.0 Sodium 135.0 L Potassium 3.6 Chloride 101 Carbon Dioxide 30 Anion Gap 4 L BUN 9 Creatinine 0.76 Est GFR ( Amer) > 60 Est GFR (Non-Af Amer) > 60 Glucose 79 Calcium 7.4 L 05/09/17 08:45 Abdomen - Incision Site Gram Stain - Final 05/09/17 08:45 Abdomen - Incision Site Wound Culture - Final Enterococcus Faecalis(Group D) No Anaerobic Organisms 05/06/17 05/11/17 04:06 05:00 Creatine Kinase 248 H NT-Pro-B Natriuret Pep 1740 H Impressions: Abdomen/Pelvis CT 05/03/17 19:43 IMPRESSION: There is free air and fluid in the abdomen suggestive of gastrointestinal perforation. Site is uncertain. Shoulder X-Ray 05/04/17 00:00 IMPRESSION: Left shoulder arthroplasty. Chest X-Ray 05/11/17 00:00 IMPRESSION: Left pleural effusion. Cannot exclude left lower lobe consolidation. PICC Line Insertion 05/11/17 00:00 IMPRESSION: SUCCESSFUL PLACEMENT OF A 5 FR DUAL LUMEN 32 CM PICC IN THE RIGHT BASILIC VEIN. Assessment & Plan - Diagnosis (1) Hypokalemia Is this a current diagnosis for this admission?: Yes Plan: Increase oral replacement and trend (2) Hypocalcemia Is this a current diagnosis for this admission?: Yes Plan: Corrected (3) Metabolic acidosis Is this a current diagnosis for this admission?: Yes Plan: Resolved (4) Perforated abdominal viscus Is this a current diagnosis for this admission?: Yes Plan: As per primary. Continue vitamin C multivitamins for wound healing (5) WONG (acute kidney injury) Is this a current diagnosis for this admission?: Yes Plan: Resolved. (6) CHF (congestive heart failure) Qualifiers: Heart failure type: diastolic Heart failure chronicity: unspecified Qualified Code(s): I50.30 - Unspecified diastolic (congestive) heart failure Is this a current diagnosis for this admission?: Yes Plan: BNP elevated. Echocardiogram report noted Continue Lasix IV and low-dose lisinopril since blood pressure on the high side. Patient denies history of hypertension (7) Hyponatremia Is this a current diagnosis for this admission?: Yes Plan: Likely due to fluid overload. Resolved (8) Anemia Qualifiers: Anemia type: unspecified type Qualified Code(s): D64.9 - Anemia, unspecified Is this a current diagnosis for this admission?: Yes Plan: Hemoglobin less than 8. Order to transfuse 1 unit of packed red blood cell. Continue trending (9) Pleural effusion due to CHF (congestive heart failure) Is this a current diagnosis for this admission?: Yes Plan: My opinion relates to fluid overload. Patient on Unasyn. Order follow-up chest x-ray in a.m. (10) Poor appetite Is this a current diagnosis for this admission?: Yes Plan: Continue oral zyprexa - Time Time Spent with patient: 15-24 minutes Medications reviewed and adjusted accordingly: Yes Anticipated discharge: Other - As per primary
[2017-05-13] MEDS: LANSOPRAZOLE 30 MG TAB.RAP.DR PO SCH (17:52)
[2017-05-13] MEDS: FUROSEMIDE INJ/PF 40 MG/4 ML SDV IV SCH (17:53)
[2017-05-13] MEDS: POTASSIUM CHLORIDE 10 MEQ TABLET.SA PO SCH (17:53)
[2017-05-13 20:42] LABS: ABSOLUTE EOSINOPHILS # (AUTO) 0.3 10^3/uL (0.0-0.6); ABSOLUTE LYMPHOCYTES (AUTO) 1.5 10^3/uL (0.5-4.7); ABSOLUTE MONOCYTES (AUTO) 0.8 10^3/uL (0.1-1.4); BASOPHILS % (AUTO) 0.4 % (0-2); EOSINOPHILS % (AUTO) 3.4 % (0-6); HEMATOCRIT 31.9 % (36.0-47.0); LYMPHOCYTES % (AUTO) 15.5 % (13-45); MEAN CORPUSCULAR HEMOGLOBIN 29.3 pg (27.0-33.4); MEAN CORPUSCULAR HGB CONC 33.6 g/dL (32.0-36.0); MEAN CORPUSCULAR VOLUME 87 fl (80-97); PLATELET COUNT 410 10^3/uL (150-450); RED BLOOD COUNT 3.66 10^6/uL (3.72-5.28); RED CELL DISTRIBUTION WIDTH 16.5 % (11.5-14.0); SEGMENTED NEUTROPHILS % (AUTO) 72.7 % (42-78); TOTAL CELLS COUNTED % (AUTO) 100 %; WHITE BLOOD COUNT 9.6 10^3/uL (4.0-10.5)
[2017-05-13 20:45] LABS: HEMOGLOBIN 10.7 g/dL (12.0-15.5)
[2017-05-13] MEDS: OLANZAPINE 2.5 MG TABLET PO SCH (22:46)
[2017-05-14] MEDS: OXYCODONE-ACETAMINOPHEN 5-325 MG TABLET PO PRN (01:59)
[2017-05-14] MEDS: FUROSEMIDE INJ/PF 40 MG/4 ML SDV IV SCH (05:51)
[2017-05-14] MEDS: LANSOPRAZOLE 30 MG TAB.RAP.DR PO SCH ×2 (05:51→17:36)
[2017-05-14] MEDS: AMPICILLIN SODIUM/SULBACTAM NA 3 GM in NORMAL SALINE 100 ML IV SCH ×3 (05:51→17:37)
[2017-05-14 06:26] LABS: ABSOLUTE BASOPHILS # (AUTO) 0.1 10^3/uL (0.0-0.2); ABSOLUTE EOSINOPHILS # (AUTO) 0.2 10^3/uL (0.0-0.6); ABSOLUTE MONOCYTES (AUTO) 0.9 10^3/uL (0.1-1.4); ABSOLUTE NEUT (AUTO) 6.8 10^3/uL (1.7-8.2); BASOPHILS % (AUTO) 0.5 % (0-2); EOSINOPHILS % (AUTO) 2.4 % (0-6); HEMATOCRIT 30.6 % (36.0-47.0); HEMOGLOBIN 10.3 g/dL (12.0-15.5); LYMPHOCYTES % (AUTO) 20.2 % (13-45); MEAN CORPUSCULAR HEMOGLOBIN 29.5 pg (27.0-33.4); MEAN CORPUSCULAR HGB CONC 33.7 g/dL (32.0-36.0); MEAN CORPUSCULAR VOLUME 88 fl (80-97); MONOCYTES % (AUTO) 8.8 % (3-13); PLATELET COUNT 410 10^3/uL (150-450); RED CELL DISTRIBUTION WIDTH 16.5 % (11.5-14.0); SEGMENTED NEUTROPHILS % (AUTO) 68.1 % (42-78); TOTAL CELLS COUNTED % (AUTO) 100 %
[2017-05-14 06:50] LABS: ANION GAP 5 (5-19); BLOOD UREA NITROGEN 12 mg/dL (7-20); CARBON DIOXIDE 30 mmol/L (22-30); CHLORIDE 101 mmol/L (98-107); GLUCOSE 97 mg/dL (75-110); POTASSIUM 4.2 mmol/L (3.6-5.0); SODIUM 135.9 mmol/L (137-145)
--- NOTE | 2017-05-14 10:21 | RADIOLOGY REPORT (SQ) ---
EXAM DESCRIPTION: CHEST PA/LAT COMPLETED DATE/TIME: 05/14/2017 10:03 am REASON FOR STUDY: follow up pleural effusion COMPARISON: 05/11/2017 EXAM PARAMETERS: NUMBER OF VIEWS: two views TECHNIQUE: Digital Frontal and Lateral radiographic views of the chest acquired. RADIATION DOSE: NA LIMITATIONS: none FINDINGS: LUNGS AND PLEURA: There continues to be a significant left pleural effusion. There is min imal pleural fluid on the right as seen on the lateral view. There is persistent retrocardiac opacif ication PE MEDIASTINUM AND HILAR STRUCTURES: No masses or contour abnormalities. HEART AND VASCULAR STRUCTURES: Heart normal size. No evidence for failure. BONES: No acute findings. HARDWARE: None in the chest. OTHER: No other significant finding. IMPRESSION: 1. Persistent left pleural effusion. There does appear to be some improvement on the r ight side. 2. Cannot exclude left lower lobe consolidation or atelectasis. TECHNICAL DOCUMENTATION: JOB ID: [id number] [employer]- All Rights Reserved Reading location - IP/workstation name: [email or web address]
[2017-05-14] MEDS: ASCORBIC ACID 500 MG TABLET PO SCH ×2 (11:25→17:37)
[2017-05-14] MEDS: FERROUS SULFATE 325 MG TABLET PO SCH ×2 (11:25→17:36)
[2017-05-14] MEDS: DOCUSATE SODIUM 100 MG CAPSULE PO SCH ×2 (11:25→21:10)
[2017-05-14] MEDS: LISINOPRIL 5 MG TABLET PO SCH (11:26)
[2017-05-14] MEDS: POTASSIUM CHLORIDE 10 MEQ TABLET.SA PO SCH ×2 (11:26→17:36)
[2017-05-14] MEDS: MULTIVITAMIN TABLET PO SCH (11:27)
[2017-05-14] MEDS: NORMAL SALINE 10 ML SDV (SCHEDULED) IV SCH ×2 (11:28→21:11)
[2017-05-14] MEDS: HEPARIN SOD (PORCINE) 5,000 UNIT/ML 1 ML SYRINGE SUBCUT SCH (11:28)
--- NOTE | 2017-05-14 12:24 | RADIOLOGY REPORT (SQ) ---
EXAM DESCRIPTION: CT CHEST WITH COMPLETED DATE/TIME: 05/14/2017 12:00 pm REASON FOR STUDY: eval pleural effusions COMPARISON: Chest x-ray 05/14/2017 TECHNIQUE: CT scan of the chest performed using helical scanning technique with dynamic intravenous contrast injection. Images reviewed with lung, soft tissue and bone windows. Reconstructed coronal and sagittal MPR images reviewed. All images stored on PACS. All CT scanners at this facility use dose modulation, iterative reconstruction, and/or weight based d osing when appropriate to reduce radiation dose to as low as reasonably achievable (ALARA). [facility]: Dose Right [facility]: CareDose [facility]: Dose Right [facility]: Teradose 4D [facility]: [employer] CONTRAST TYPE AND DOSE: contrast/concentration: Isovue 370.00 mg/ml; Total Contrast Delivered: 80.0 ml; Total Saline Delivered: 55.0 ml RENAL FUNCTION: BUN 12 creatinine 0.7 RADIATION DOSE: CT Rad equipment meets quality standard of care and radiation dose reduction techniq ues were employed. CTDIvol: 10.4 mGy. DLP: 364 mGy-cm. . LIMITATIONS: None. FINDINGS: LUNGS AND PLEURA: There is a significant left pleural effusion with depth of 47 mm. There is a small right pleural effusion with a maximum depth of 14 mm. Mild compressive atelectasis is se en in each lower lobe, left more than right. No infiltrate or mass is seen. HILAR AND MEDIASTINAL STRUCTURES: No identified masses or abnormal nodes. HEART AND VASCULAR STRUCTURES: No aneurysm or dissection. No central pulmonary emboli. No pericardi al effusion. HARDWARE: None in the chest. UPPER ABDOMEN: No significant findings. Limited exam. THYROID AND OTHER SOFT TISSUES: No masses. No adenopathy. BONES: No significant finding. OTHER: No other significant finding. IMPRESSION: Significant left pleural effusion and smaller right pleural effusion with associated ate lectatic changes in the lower lobes as described. TECHNICAL DOCUMENTATION: JOB ID: [id number] Quality ID # [id number]: Final reports with documentation of one or more dose reduction techniques (e.g., Au tomated exposure control, adjustment of the mA and/or kV according to patient size, use of iterative reconstruction technique) 2010 [employer]- All Rights Reserved Reading location - IP/workstation name: [email or web address]
[2017-05-14] MEDS ORDERED: AMLODIPINE BESYLATE 2.5 MG TABLET PO SCH ×2 (15:30→22:00)
--- NOTE | 2017-05-14 15:41 | PDOC PROGRESS REPORT ---
Subjective Progress Note for:: 05/14/17 Subjective:: Patient states that he is starting to feel better. Appetite is picking up Review of systems All organ systems evaluated and negative except as in subjective All significant laboratories and diagnostics have been reviewed Reason For Visit: PERFORATED SIGMOID COLON Physical Exam Vital Signs: Temp Pulse Resp BP Pulse Ox 99.9 F 115 H 16 132/48 H 95 05/13/17 23:58 05/13/17 23:58 05/13/17 23:58 05/13/17 23:58 05/13/17 23:58 Intake & Output 05/13/17 05/14/17 05/15/17 06:59 06:59 06:59 Intake Total 856 1939 Output Total 1724 5230 Balance -869 -661 Weight 89.5 kg 85.9 kg General appearance: PRESENT: cooperative, well-developed, well-nourished Head exam: PRESENT: atraumatic, normocephalic Eye exam: PRESENT: conjunctiva pink, EOMI, PERRLA Ear exam: PRESENT: normal external ear exam Mouth exam: PRESENT: neck supple Neck exam: PRESENT: full ROM. ABSENT: JVD, lymphadenopathy, tenderness Respiratory exam: PRESENT: decreased breath sounds Cardiovascular exam: PRESENT: RRR, systolic murmur. ABSENT: diastolic murmur GI/Abdominal exam: PRESENT: guarding, normal bowel sounds, tenderness Extremities exam: PRESENT: full ROM, +1 edema. ABSENT: tenderness Musculoskeletal exam: PRESENT: ambulatory Neurological exam: PRESENT: alert, awake, oriented to person, oriented to place , oriented to time, oriented to situation, CN II-XII grossly intact Psychiatric exam: PRESENT: appropriate affect, normal mood Skin exam: PRESENT: intact, normal color Results Laboratory Results: 05/14/17 06:10 05/14/17 06:10 05/13/17 05/13/17 05/13/17 06:59 06:59 09:04 WBC 8.6 RBC 2.57 L Hgb 7.8 L Hct 22.9 L MCV 89 MCH 30.3 MCHC 34.1 RDW 14.0 Plt Count 383 Seg Neutrophils % 64.0 Lymphocytes % 23.9 Monocytes % 8.5 Eosinophils % 3.0 Basophils % 0.6 Absolute Neutrophils 5.5 Absolute Lymphocytes 2.1 Absolute Monocytes 0.7 Absolute Eosinophils 0.3 Absolute Basophils 0.0 Sodium 136.6 L Potassium 3.5 L Chloride 100 Carbon Dioxide 30 Anion Gap 7 BUN 9 Creatinine 0.72 Est GFR ( Amer) > 60 Est GFR (Non-Af Amer) > 60 Glucose 89 Calcium 7.7 L Blood Type O POSITIVE Antibody Screen NEGATIVE 05/13/17 05/14/17 05/14/17 20:15 06:10 06:10 WBC 9.6 10.0 RBC 3.66 L 3.50 L Hgb 10.7 L D 10.3 L Hct 31.9 L 30.6 L MCV 87 88 MCH 29.3 29.5 MCHC 33.6 33.7 RDW 16.5 H 16.5 H Plt Count 410 410 Seg Neutrophils % 72.7 68.1 Lymphocytes % 15.5 20.2 Monocytes % 8.0 8.8 Eosinophils % 3.4 2.4 Basophils % 0.4 0.5 Absolute Neutrophils 7.0 6.8 Absolute Lymphocytes 1.5 2.0 Absolute Monocytes 0.8 0.9 Absolute Eosinophils 0.3 0.2 Absolute Basophils 0.0 0.1 Sodium 135.9 L Potassium 4.2 Chloride 101 Carbon Dioxide 30 Anion Gap 5 BUN 12 Creatinine 0.71 Est GFR ( Amer) > 60 Est GFR (Non-Af Amer) > 60 Glucose 97 Calcium 8.0 L Blood Type Antibody Screen 05/11/17 18:45 Clean Catch Midstream Urine Culture - Final NO GROWTH 2 DAYS 05/06/17 05/11/17 04:06 05:00 Creatine Kinase 248 H NT-Pro-B Natriuret Pep 1740 H Impressions: Abdomen/Pelvis CT 05/03/17 19:43 IMPRESSION: There is free air and fluid in the abdomen suggestive of gastrointestinal perforation. Site is uncertain. Shoulder X-Ray 05/04/17 00:00 IMPRESSION: Left shoulder arthroplasty. Chest X-Ray 05/11/17 00:00 IMPRESSION: Left pleural effusion. Cannot exclude left lower lobe consolidation. PICC Line Insertion 05/11/17 00:00 IMPRESSION: SUCCESSFUL PLACEMENT OF A 5 FR DUAL LUMEN 32 CM PICC IN THE RIGHT BASILIC VEIN. Assessment & Plan - Diagnosis (1) Hypokalemia Is this a current diagnosis for this admission?: Yes Plan: Continue oral replacement and trend (2) Hypocalcemia Is this a current diagnosis for this admission?: Yes Plan: Corrected (3) Metabolic acidosis Is this a current diagnosis for this admission?: Yes Plan: Resolved (4) Perforated abdominal viscus Is this a current diagnosis for this admission?: Yes Plan: As per primary. Continue vitamin C multivitamins for wound healing (5) WONG (acute kidney injury) Is this a current diagnosis for this admission?: Yes Plan: Resolved. (6) CHF (congestive heart failure) Qualifiers: Heart failure type: diastolic Heart failure chronicity: acute Qualified Code(s): I50.31 - Acute diastolic (congestive) heart failure Is this a current diagnosis for this admission?: Yes Plan: BNP elevated. Echocardiogram report noted Decrease Lasix IV, increase lisinopril and add low dose norvasc Patient denies history of hypertension (7) Hyponatremia Is this a current diagnosis for this admission?: Yes Plan: Likely due to fluid overload. Resolved (8) Anemia Qualifiers: Anemia type: unspecified type Qualified Code(s): D64.9 - Anemia, unspecified Is this a current diagnosis for this admission?: Yes Plan: Improved after patient was transfused 2 units of packed red blood cells. Continue iron supplementation (9) Pleural effusion due to CHF (congestive heart failure) Is this a current diagnosis for this admission?: Yes Plan: My opinion relates to fluid overload. CT of the chest order since pleural effusion persisted. There is a significant left-sided pleural effusion. Contacted primary and he okayed for me to order a thoracentesis. To consult IR for thoracentesis (10) Poor appetite Is this a current diagnosis for this admission?: Yes Plan: Continue oral zyprexa - Time Time Spent with patient: 15-24 minutes Medications reviewed and adjusted accordingly: Yes Anticipated discharge: Other - As per primary
[2017-05-14] MEDS ORDERED: AMLODIPINE BESYLATE 2.5 MG TABLET PO ONE (16:00)
[2017-05-14 17:02] LABS: INTERNATIONAL RATION (INR) 1.17; PARTIAL THROMBOPLASTIN TIME 34.6 SEC (23.5-35.8); PROTHROMBIN TIME 15.7 SEC (11.4-15.4)
[2017-05-14] MEDS ORDERED: FUROSEMIDE INJ/PF 40 MG/4 ML SDV IV ONE (18:30)
--- NOTE | 2017-05-14 20:11 | PDOC PROGRESS REPORT ---
Subjective Progress Note for:: 05/14/17 Subjective:: Doing better today Ambulating some. Reason For Visit: PERFORATED SIGMOID COLON Physical Exam Vital Signs: Temp Pulse Resp BP Pulse Ox 98.8 F 100 16 147/61 H 98 05/14/17 16:00 05/14/17 16:00 05/14/17 16:00 05/14/17 16:00 05/14/17 16:00 Intake & Output 05/13/17 05/14/17 05/15/17 06:59 06:59 06:59 Intake Total 856 1939 1086 Output Total 1725 2600 750 Balance -869 661 336 Weight 89.5 kg 85.9 kg General appearance: PRESENT: no acute distress Respiratory exam: PRESENT: clear to auscultation deonna Cardiovascular exam: PRESENT: +S1, +S2 GI/Abdominal exam: PRESENT: normal bowel sounds, soft, other - stoma is functional. midline wound with wound vac in place. Neurological exam: PRESENT: alert, awake, oriented to person, oriented to place , oriented to time, oriented to situation, CN II-XII grossly intact. ABSENT: motor sensory deficit Results Laboratory Results: 05/14/17 06:10 05/14/17 06:10 05/13/17 05/14/17 05/14/17 20:15 06:10 06:10 WBC 9.6 10.0 RBC 3.66 L 3.50 L Hgb 10.7 L D 10.3 L Hct 31.9 L 30.6 L MCV 87 88 MCH 29.3 29.5 MCHC 33.6 33.7 RDW 16.5 H 16.5 H Plt Count 410 410 Seg Neutrophils % 72.7 68.1 Lymphocytes % 15.5 20.2 Monocytes % 8.0 8.8 Eosinophils % 3.4 2.4 Basophils % 0.4 0.5 Absolute Neutrophils 7.0 6.8 Absolute Lymphocytes 1.5 2.0 Absolute Monocytes 0.8 0.9 Absolute Eosinophils 0.3 0.2 Absolute Basophils 0.0 0.1 Sodium 135.9 L Potassium 4.2 Chloride 101 Carbon Dioxide 30 Anion Gap 5 BUN 12 Creatinine 0.71 Est GFR ( Amer) > 60 Est GFR (Non-Af Amer) > 60 Glucose 97 Calcium 8.0 L 05/06/17 05/11/17 04:06 05:00 Creatine Kinase 248 H NT-Pro-B Natriuret Pep 1740 H Impressions: Abdomen/Pelvis CT 05/03/17 19:43 IMPRESSION: There is free air and fluid in the abdomen suggestive of gastrointestinal perforation. Site is uncertain. Shoulder X-Ray 05/04/17 00:00 IMPRESSION: Left shoulder arthroplasty. PICC Line Insertion 05/11/17 00:00 IMPRESSION: SUCCESSFUL PLACEMENT OF A 5 FR DUAL LUMEN 32 CM PICC IN THE RIGHT BASILIC VEIN. Chest CT 05/14/17 00:00 IMPRESSION: Significant left pleural effusion and smaller right pleural effusion with associated atelectatic changes in the lower lobes as described. Chest X-Ray 05/14/17 00:00 IMPRESSION: 1. Persistent left pleural effusion. There does appear to be some improvement on the right side. 2. Cannot exclude left lower lobe consolidation or atelectasis. Assessment & Plan - Diagnosis (1) Perforated abdominal viscus Is this a current diagnosis for this admission?: Yes - Plan Summary Plan Summary: Continue oral diet Continue to ambulate and rehabilitate
[2017-05-14] MEDS: OLANZAPINE 2.5 MG TABLET PO SCH (21:11)
[2017-05-14] MEDS ORDERED: CEFEPIME 1 GM/D5W RTU 1 GM/50 ML RTUPB IV SCH (22:00)
[2017-05-15] MEDS: AMPICILLIN SODIUM/SULBACTAM NA 3 GM in NORMAL SALINE 100 ML IV SCH ×3 (00:07→11:50)
[2017-05-15] MEDS: OXYCODONE-ACETAMINOPHEN 5-325 MG TABLET PO PRN (03:36)
[2017-05-15] MEDS: LANSOPRAZOLE 30 MG TAB.RAP.DR PO SCH ×2 (05:05→18:22)
[2017-05-15] MEDS ORDERED: FUROSEMIDE INJ/PF 20 MG/2 ML SDV IV SCH (06:00)
[2017-05-15 06:15] LABS: ABSOLUTE EOSINOPHILS # (AUTO) 0.4 10^3/uL (0.0-0.6); ABSOLUTE LYMPHOCYTES (AUTO) 1.7 10^3/uL (0.5-4.7); ABSOLUTE MONOCYTES (AUTO) 0.9 10^3/uL (0.1-1.4); BASOPHILS % (AUTO) 0.4 % (0-2); EOSINOPHILS % (AUTO) 3.8 % (0-6); HEMATOCRIT 30.9 % (36.0-47.0); HEMOGLOBIN 10.4 g/dL (12.0-15.5); LYMPHOCYTES % (AUTO) 16.8 % (13-45); MEAN CORPUSCULAR HEMOGLOBIN 29.6 pg (27.0-33.4); MEAN CORPUSCULAR HGB CONC 33.6 g/dL (32.0-36.0); MEAN CORPUSCULAR VOLUME 88 fl (80-97); MONOCYTES % (AUTO) 8.6 % (3-13); PLATELET COUNT 464 10^3/uL (150-450); RED BLOOD COUNT 3.51 10^6/uL (3.72-5.28); SEGMENTED NEUTROPHILS % (AUTO) 70.4 % (42-78); TOTAL CELLS COUNTED % (AUTO) 100 %
[2017-05-15 06:33] LABS: ANION GAP 7 (5-19); BLOOD UREA NITROGEN 14 mg/dL (7-20); CALCIUM 8.6 mg/dL (8.4-10.2); CARBON DIOXIDE 28 mmol/L (22-30); CHLORIDE 101 mmol/L (98-107); GLUCOSE 103 mg/dL (75-110); POTASSIUM 4.5 mmol/L (3.6-5.0)
[2017-05-15] MEDS ORDERED: ALPRAZOLAM 0.25 MG TABLET PO PRN (07:56)
[2017-05-15] MEDS ORDERED: LIDOCAINE 1% INJ-PF (10 MG/ML) 30 ML SDV ONE (08:21)
--- NOTE | 2017-05-15 09:45 | RADIOLOGY REPORT (SQ) ---
EXAM DESCRIPTION: U/S THORACENTESIS WITH IMAGING COMPLETED DATE/TIME: 05/15/2017 9:37 am REASON FOR STUDY: left sided pleural effusion COMPARISON: None. LIMITATIONS: None. PROCEDURE: Procedure, risks, benefit, and alternative explained to patient who then gave written con sent. The posterior left chest wall was marked using ultrasound guidance. A time-out was called for correct marking verification. Chest prepped and draped using sterile technique. Local anesthesia ac hieved using 6 ml of 1% lidocaine injection. A 6fr Safe-T- Centesis set was introduced into the left pleural space. Fluid was aspirated. The catheter was removed and the entry site was covered with s terile bandage. No immediate complications noted. Images acquired during the procedure were stored on PACS. FINDINGS: ENTRY SITE: Left posterior chest wall FLUID VOLUME: 460 mL FLUID ANALYSIS: Straw-colored OTHER: Fluid sent to the lab for testing. IMPRESSION: SUCCESSFUL THORACENTESIS USING ULTRASOUND GUIDANCE. COMMENT: Patient medication list reviewed: Yes- Quality ID# [id number]:Eligible professional attests to doc umenting in the medical record they obtained, updated, or reviewed the patient's current medications. Quality ID #[id number]: Final reports for procedures using fluoroscopy that document radiation exposure puma deondre, or exposure time and number of fluorographic images (if radiation exposure indices are not avail able) TECHNICAL DOCUMENTATION: JOB ID: [id number] [employer]- All Rights Reserved Reading location - IP/workstation name: [email or web address]
--- NOTE | 2017-05-15 10:03 | RADIOLOGY REPORT (SQ) ---
EXAM DESCRIPTION: CHEST SINGLE VIEW COMPLETED DATE/TIME: 05/15/2017 9:31 am REASON FOR STUDY: S/P LT THORACENTESIS COMPARISON: CT chest 05/14/2017 Chest films 05/14/2017, 05/11/2017, 05/06/2017, 05/04/2017 EXAM PARAMETERS: NUMBER OF VIEWS: One view. TECHNIQUE: Single frontal radiographic view of the chest acquired. RADIATION DOSE: NA LIMITATIONS: None. FINDINGS: LUNGS AND PLEURA: Decrease in left basilar infiltrate and pleural effusion compared to 04/23. Right lung well inflated and clear. No pneumothorax. No right pleural effusion. MEDIASTINUM AND HILAR STRUCTURES: No masses. Contour normal. HEART AND VASCULAR STRUCTURES: Heart normal in size. Normal vasculature. BONES: Old left humeral head replacement HARDWARE: Right-sided PICC line tip superior vena cava OTHER: No other significant finding. IMPRESSION: Improved left basilar airspace disease and pleural fluid compared to 05/14/2017 TECHNICAL DOCUMENTATION: JOB ID: [id number] [employer]- All Rights Reserved Reading location - IP/workstation name: [email or web address]
[2017-05-15 11:19] LABS: FLUID TYPE PLEURAL
[2017-05-15 11:20] LABS: FLUID COLOR LIGHT YELLOW
[2017-05-15 11:22] LABS: FLUID APPEARANCE SLIGHTLY HAZY; FLUID VISCOSITY SLIGHTLY VISCOUS
[2017-05-15 11:26] LABS: FLUID SOURCE LUNG
[2017-05-15] MEDS: ASCORBIC ACID 500 MG TABLET PO SCH ×2 (11:50→18:25)
[2017-05-15] MEDS: DOCUSATE SODIUM 100 MG CAPSULE PO SCH ×2 (11:50→21:57)
[2017-05-15] MEDS: FERROUS SULFATE 325 MG TABLET PO SCH ×2 (11:50→18:25)
[2017-05-15] MEDS: NORMAL SALINE 10 ML SDV (SCHEDULED) IV SCH ×2 (11:50→21:58)
[2017-05-15] MEDS: LISINOPRIL 10 MG TABLET PO SCH (11:50)
[2017-05-15] MEDS: MULTIVITAMIN TABLET PO SCH (11:50)
--- NOTE | 2017-05-15 12:07 | RADIOLOGY REPORT (SQ) ---
EXAM DESCRIPTION: CHEST SINGLE VIEW COMPLETED DATE/TIME: 05/15/2017 11:47 am REASON FOR STUDY: S/P LT THORACENTESIS COMPARISON: CT chest 05/14/2017 Two-view chest 05/14/2017, 05/15/2017 EXAM PARAMETERS: NUMBER OF VIEWS: One view. TECHNIQUE: Single frontal radiographic view of the chest acquired. RADIATION DOSE: NA LIMITATIONS: None. FINDINGS: LUNGS AND PLEURA: 2 hours post left thoracentesis, with removal of 400 mL of fluid from th e left chest under ultrasound guidance. No left pneumothorax. Minimal left basilar atelectasis. Right hemithorax unremarkable. MEDIASTINUM AND HILAR STRUCTURES: No masses. Contour normal. HEART AND VASCULAR STRUCTURES: Heart normal in size. Normal vasculature. BONES: No acute findings. HARDWARE: Right PICC line tip superior vena cava. Left humeral head replacement OTHER: No other significant finding. IMPRESSION: No pneumothorax 2 hours post left thoracentesis. Minimal left basilar atelectasis persi sts. TECHNICAL DOCUMENTATION: JOB ID: [id number] [employer]- All Rights Reserved Reading location - IP/workstation name: [email or web address]
--- NOTE | 2017-05-15 14:04 | PDOC PROGRESS REPORT ---
Subjective Progress Note for:: 05/15/17 Subjective:: Patient relates that slowly continues feeling better. Pain in her back is getting better Review of systems All organ systems evaluated and negative except as in subjective All significant laboratories and diagnostics have been reviewed Reason For Visit: PERFORATED SIGMOID COLON Physical Exam Vital Signs: Temp Pulse Resp BP Pulse Ox 99.0 F 122 H 16 130/71 H 98 05/14/17 20:07 05/14/17 20:07 05/14/17 20:07 05/14/17 20:07 05/14/17 20:07 Intake & Output 05/14/17 05/15/17 05/16/17 06:59 06:59 06:59 Intake Total 1939 1576 Output Total 2600 1050 Balance -661 526 Weight 85.9 kg 85.9 kg General appearance: PRESENT: cooperative, well-developed, well-nourished Head exam: PRESENT: atraumatic, normocephalic Eye exam: PRESENT: conjunctiva pink, EOMI, PERRLA Ear exam: PRESENT: normal external ear exam Neck exam: PRESENT: full ROM. ABSENT: JVD, lymphadenopathy, tenderness Respiratory exam: PRESENT: clear to auscultation deonna Cardiovascular exam: PRESENT: RRR, systolic murmur. ABSENT: diastolic murmur Vascular exam: PRESENT: normal capillary refill GI/Abdominal exam: PRESENT: normal bowel sounds, soft, tenderness Extremities exam: PRESENT: full ROM, +1 edema Musculoskeletal exam: PRESENT: ambulatory Neurological exam: PRESENT: alert, awake, oriented to person, oriented to place , oriented to time, oriented to situation, CN II-XII grossly intact Psychiatric exam: PRESENT: appropriate affect, normal mood Skin exam: PRESENT: intact, normal color Results Laboratory Results: 05/15/17 06:00 05/15/17 06:00 05/15/17 05/15/17 06:00 06:00 WBC 10.0 RBC 3.51 L Hgb 10.4 L Hct 30.9 L MCV 88 MCH 29.6 MCHC 33.6 RDW 16.0 H Plt Count 464 H Seg Neutrophils % 70.4 Lymphocytes % 16.8 Monocytes % 8.6 Eosinophils % 3.8 Basophils % 0.4 Absolute Neutrophils 7.0 Absolute Lymphocytes 1.7 Absolute Monocytes 0.9 Absolute Eosinophils 0.4 Absolute Basophils 0.0 Sodium 136.0 L Potassium 4.5 Chloride 101 Carbon Dioxide 28 Anion Gap 7 BUN 14 Creatinine 0.77 Est GFR ( Amer) > 60 Est GFR (Non-Af Amer) > 60 Glucose 103 Calcium 8.6 05/06/17 05/11/17 04:06 05:00 Creatine Kinase 248 H NT-Pro-B Natriuret Pep 1740 H Impressions: Abdomen/Pelvis CT 05/03/17 19:43 IMPRESSION: There is free air and fluid in the abdomen suggestive of gastrointestinal perforation. Site is uncertain. Shoulder X-Ray 05/04/17 00:00 IMPRESSION: Left shoulder arthroplasty. PICC Line Insertion 05/11/17 00:00 IMPRESSION: SUCCESSFUL PLACEMENT OF A 5 FR DUAL LUMEN 32 CM PICC IN THE RIGHT BASILIC VEIN. Chest CT 05/14/17 00:00 IMPRESSION: Significant left pleural effusion and smaller right pleural effusion with associated atelectatic changes in the lower lobes as described. Chest X-Ray 05/14/17 00:00 IMPRESSION: 1. Persistent left pleural effusion. There does appear to be some improvement on the right side. 2. Cannot exclude left lower lobe consolidation or atelectasis. Assessment & Plan - Diagnosis (1) Hypokalemia Is this a current diagnosis for this admission?: Yes Plan: Replaced. Stop replacement. Continue trending (2) Hypocalcemia Is this a current diagnosis for this admission?: Yes Plan: Corrected (3) Metabolic acidosis Is this a current diagnosis for this admission?: Yes Plan: Resolved (4) Perforated abdominal viscus Is this a current diagnosis for this admission?: Yes Plan: As per primary. Continue vitamin C multivitamins for wound healing. Discontinue Unasyn which was to cover enterococcus in wound. Place patient on Augmentin (5) WONG (acute kidney injury) Is this a current diagnosis for this admission?: Yes Plan: Resolved. (6) CHF (congestive heart failure) Qualifiers: Heart failure type: diastolic Heart failure chronicity: acute Qualified Code(s): I50.31 - Acute diastolic (congestive) heart failure Is this a current diagnosis for this admission?: Yes Plan: BNP elevated. Echocardiogram report noted .Discontinue Lasix IV. Continue Norvasc, lisinopril and add Coreg (7) Hyponatremia Is this a current diagnosis for this admission?: Yes Plan: Likely due to fluid overload. Resolved (8) Anemia Qualifiers: Anemia type: unspecified type Qualified Code(s): D64.9 - Anemia, unspecified Is this a current diagnosis for this admission?: Yes Plan: Improved after patient was transfused 2 units of packed red blood cells. Continue iron supplementation (9) Pleural effusion due to CHF (congestive heart failure) Is this a current diagnosis for this admission?: Yes Plan: Patient had sonogram guided thoracentesis with removal of 460 mL's. Will follow up tests (10) Poor appetite Is this a current diagnosis for this admission?: Yes Plan: Continue oral zyprexa (11) Insomnia Qualifiers: Insomnia type: unspecified Qualified Code(s): G47.00 - Insomnia, unspecified Is this a current diagnosis for this admission?: Yes Plan: Continue trazodone - Time Time Spent with patient: 15-24 minutes Medications reviewed and adjusted accordingly: Yes Anticipated discharge: Home with Homehealth Within: Other - As per admitting physician
--- NOTE | 2017-05-15 14:11 | PDOC PROGRESS REPORT ---
Subjective Progress Note for:: 05/15/17 Subjective:: POD #11 s/p sade's procedure for sigmoid perforation. Doing subjectively better but complains of heaviness of abdomen. Tolerating oral diet. Colostomy is functioning. No fever. Had a thoracentesis for left pleural effusion. Reason For Visit: PERFORATED SIGMOID COLON Physical Exam Vital Signs: Temp Pulse Resp BP Pulse Ox 98.9 F 120 H 16 133/49 H 99 05/15/17 11:34 05/15/17 11:34 05/15/17 11:34 05/15/17 11:34 05/15/17 11:34 Intake & Output 05/14/17 05/15/17 05/16/17 06:59 06:59 06:59 Intake Total 1939 1576 Output Total 2600 1050 Balance -661 526 Weight 85.9 kg 85.9 kg General appearance: PRESENT: no acute distress Head exam: PRESENT: atraumatic, normocephalic Respiratory exam: PRESENT: clear to auscultation deonna Cardiovascular exam: PRESENT: +S1, +S2 GI/Abdominal exam: PRESENT: normal bowel sounds, soft, other - midline incision with wound vac on; colostomy is pink and functioning. Neurological exam: PRESENT: alert, awake, oriented to person, oriented to place , oriented to time, oriented to situation, CN II-XII grossly intact. ABSENT: motor sensory deficit Results Laboratory Results: 05/15/17 06:00 05/15/17 06:00 05/15/17 05/15/17 05/15/17 06:00 06:00 09:15 WBC 10.0 RBC 3.51 L Hgb 10.4 L Hct 30.9 L MCV 88 MCH 29.6 MCHC 33.6 RDW 16.0 H Plt Count 464 H Seg Neutrophils % 70.4 Lymphocytes % 16.8 Monocytes % 8.6 Eosinophils % 3.8 Basophils % 0.4 Absolute Neutrophils 7.0 Absolute Lymphocytes 1.7 Absolute Monocytes 0.9 Absolute Eosinophils 0.4 Absolute Basophils 0.0 Sodium 136.0 L Potassium 4.5 Chloride 101 Carbon Dioxide 28 Anion Gap 7 BUN 14 Creatinine 0.77 Est GFR ( Amer) > 60 Est GFR (Non-Af Amer) > 60 Glucose 103 Calcium 8.6 Fluid Type PLEURAL Fluid Source LUNG Fluid Color LIGHT YELLOW Fluid Appearance SLIGHTLY HAZY Fluid Viscosity SLIGHTLY VISCOUS Fluid WBC 2180 Fluid RBC 640 05/06/17 05/11/17 04:06 05:00 Creatine Kinase 248 H NT-Pro-B Natriuret Pep 1740 H Impressions: Abdomen/Pelvis CT 05/03/17 19:43 IMPRESSION: There is free air and fluid in the abdomen suggestive of gastrointestinal perforation. Site is uncertain. Shoulder X-Ray 05/04/17 00:00 IMPRESSION: Left shoulder arthroplasty. PICC Line Insertion 05/11/17 00:00 IMPRESSION: SUCCESSFUL PLACEMENT OF A 5 FR DUAL LUMEN 32 CM PICC IN THE RIGHT BASILIC VEIN. Chest CT 05/14/17 00:00 IMPRESSION: Significant left pleural effusion and smaller right pleural effusion with associated atelectatic changes in the lower lobes as described. Thoracentesis Ultrasound 05/15/17 00:00 IMPRESSION: SUCCESSFUL THORACENTESIS USING ULTRASOUND GUIDANCE. Chest X-Ray 05/15/17 11:25 IMPRESSION: No pneumothorax 2 hours post left thoracentesis. Minimal left basilar atelectasis persists. Assessment & Plan - Diagnosis (1) Perforated abdominal viscus Is this a current diagnosis for this admission?: Yes - Plan Summary Plan Summary: Will go ahead and obtain an abdominopelvic CT with contrast because of the persistent complaints of abdominal tenderness and heaviness to be sure she does not have an abscess.
[2017-05-15] MEDS: AMOXICILLIN TR/POT CLAVULANATE 500-125 MG TAB PO SCH ×2 (18:25→21:57)
[2017-05-15] MEDS: METOPROLOL SUCCINATE 50 MG TAB.SR.24H PO SCH (18:25)
--- NOTE | 2017-05-15 20:44 | RADIOLOGY REPORT (SQ) ---
EXAM DESCRIPTION: CT ABD/PELVIS WITH IV ORAL COMPLETED DATE/TIME: 05/15/2017 6:32 pm REASON FOR STUDY: postop abdominal tenderness, r/o abscess COMPARISON: None. TECHNIQUE: CT scan of the abdomen and pelvis performed using helical scanning technique with dynamic intravenous contrast injection. No oral contrast. Images reviewed with lung, soft tissue, and bone windows. Reconstructed coronal and sagittal MPR images reviewed. Delayed images for evaluation of the urinary system also acquired. All images stored on PACS. All CT scanners at this facility use dose modulation, iterative reconstruction, and/or weight based d osing when appropriate to reduce radiation dose to as low as reasonably achievable (ALARA). [facility]: Dose Right [facility]: CareDose [facility]: Dose Right [facility]: Teradose 4D [facility]: [employer] CONTRAST TYPE AND DOSE: contrast/concentration: Isovue 370.00 mg/ml; Total Contrast Delivered: 92.0 ml; Total Saline Delivered: 70.0 ml RENAL FUNCTION: GFR greater than 60 RADIATION DOSE: CT Rad equipment meets quality standard of care and radiation dose reduction techniq ues were employed. CTDIvol: 9.1 - 12.8 mGy. DLP: 1212 mGy-cm.. LIMITATIONS: None. FINDINGS: LOWER CHEST: Small bilateral pleural effusions with adjacent compressive atelectasis of th e lower lobes. LIVER: Normal size. No masses. No dilated ducts. SPLEEN: Normal size. No focal lesions. PANCREAS: No masses. No significant calcifications. No adjacent inflammation or peripancreatic fluid collections. Pancreatic duct not dilated. GALLBLADDER: No identified stones by CT criteria. No inflammatory changes to suggest cholecystitis. ADRENAL GLANDS: No significant masses or asymmetry. RIGHT KIDNEY AND URETER: No solid masses. No significant calcifications. No hydronephrosis or hyd roureter. LEFT KIDNEY AND URETER: No solid masses. No significant calcifications. No hydronephrosis or hydr oureter. AORTA AND VESSELS: No aneurysm. No dissection. Renal arteries, SMA, celiac without stenosis. RETROPERITONEUM: No retroperitoneal adenopathy, hemorrhage or masses. BOWEL AND PERITONEAL CAVITY: Left lower quadrant colostomy. A left pericolic recess fluid collection extends from the level of the mid descending colon and to the pelvic cul-de-sac. This collection me asures on the order of 14 x 6 x 4 cm. While this does insinuates around the adjacent loops of bowel, a well-defined wall is visualized, suggesting infected fluid. The remaining bowel appears unremarka ble. APPENDIX: Not visualized. PELVIS: No mass. ABDOMINAL WALL: No masses. No hernias. BONES: No significant or acute findings. OTHER: No other significant finding. IMPRESSION: Left lower quadrant colostomy. Irregular, but well-defined left pericolic recess absces s measuring on the order of 14 x 6 x 4 cm. TECHNICAL DOCUMENTATION: JOB ID: [id number] Quality ID # [id number]: Final reports with documentation of one or more dose reduction techniques (e.g., Au tomated exposure control, adjustment of the mA and/or kV according to patient size, use of iterative reconstruction technique) 2010 [email or web address]- All Rights Reserved Reading location - IP/workstation name: [email or web address]
[2017-05-15] MEDS: OLANZAPINE 2.5 MG TABLET PO SCH (21:57)
[2017-05-15] MEDS: TRAZODONE HCL 50 MG TABLET PO SCH (21:57)
[2017-05-15] MEDS: AMLODIPINE BESYLATE 2.5 MG TABLET PO SCH (21:57)
[2017-05-15] MEDS: HEPARIN SOD (PORCINE) 5,000 UNIT/ML 1 ML SYRINGE SUBCUT SCH (21:58)
[2017-05-16] MEDS: LANSOPRAZOLE 30 MG TAB.RAP.DR PO SCH ×2 (05:44→17:51)
[2017-05-16] MEDS: AMOXICILLIN TR/POT CLAVULANATE 500-125 MG TAB PO SCH (05:44)
[2017-05-16 06:05] LABS: ABSOLUTE EOSINOPHILS # (AUTO) 0.4 10^3/uL (0.0-0.6); ABSOLUTE LYMPHOCYTES (AUTO) 1.7 10^3/uL (0.5-4.7); ABSOLUTE MONOCYTES (AUTO) 0.9 10^3/uL (0.1-1.4); ABSOLUTE NEUT (AUTO) 6.7 10^3/uL (1.7-8.2); BASOPHILS % (AUTO) 0.4 % (0-2); EOSINOPHILS % (AUTO) 3.6 % (0-6); HEMATOCRIT 29.5 % (36.0-47.0); HEMOGLOBIN 10.2 g/dL (12.0-15.5); LYMPHOCYTES % (AUTO) 17.8 % (13-45); MEAN CORPUSCULAR HEMOGLOBIN 30.5 pg (27.0-33.4); MEAN CORPUSCULAR HGB CONC 34.7 g/dL (32.0-36.0); MEAN CORPUSCULAR VOLUME 88 fl (80-97); MONOCYTES % (AUTO) 9.5 % (3-13); PLATELET COUNT 444 10^3/uL (150-450); RED BLOOD COUNT 3.36 10^6/uL (3.72-5.28); RED CELL DISTRIBUTION WIDTH 15.7 % (11.5-14.0); SEGMENTED NEUTROPHILS % (AUTO) 68.7 % (42-78); TOTAL CELLS COUNTED % (AUTO) 100 %; WHITE BLOOD COUNT 9.8 10^3/uL (4.0-10.5)
[2017-05-16 06:33] LABS: ANION GAP 7 (5-19); BLOOD UREA NITROGEN 15 mg/dL (7-20); CALCIUM 8.4 mg/dL (8.4-10.2); CARBON DIOXIDE 26 mmol/L (22-30); CHLORIDE 100 mmol/L (98-107); GLUCOSE 98 mg/dL (75-110); POTASSIUM 4.7 mmol/L (3.6-5.0); SODIUM 133.2 mmol/L (137-145)
[2017-05-16] MEDS: ACETAMINOPHEN 325 MG TABLET PO PRN ×2 (07:43→23:28)
[2017-05-16] MEDS: DOCUSATE SODIUM 100 MG CAPSULE PO SCH ×2 (10:06→22:50)
[2017-05-16] MEDS: ASCORBIC ACID 500 MG TABLET PO SCH ×2 (10:07→17:51)
[2017-05-16] MEDS: FERROUS SULFATE 325 MG TABLET PO SCH ×2 (10:07→17:51)
[2017-05-16] MEDS: LISINOPRIL 10 MG TABLET PO SCH (10:07)
[2017-05-16] MEDS: MULTIVITAMIN TABLET PO SCH (10:07)
[2017-05-16] MEDS: HEPARIN SOD (PORCINE) 5,000 UNIT/ML 1 ML SYRINGE SUBCUT SCH ×3 (10:09→22:50)
[2017-05-16] MEDS: NORMAL SALINE INJ/PF 0.9% 10 ML SDV IV PRN ×2 (10:09→22:51)
[2017-05-16] MEDS: NORMAL SALINE 10 ML SDV (SCHEDULED) IV SCH ×2 (10:17→23:53)
[2017-05-16 12:14] LABS: ALBUMIN 2.6 g/dL (3.5-5.0)
[2017-05-16 12:24] LABS: PREALBUMIN 11.3 mg/dL (17.6-36.0)
--- NOTE | 2017-05-16 12:37 | PDOC PROGRESS REPORT ---
Subjective Progress Note for:: 05/16/17 Subjective:: patient states she is tired and wants to go home. Her pain is doing ok. She has a small appetite but states she did not eat much prior to coming to the hospital. She feels about the same as yesterday and is curious about her results. Reason For Visit: PERFORATED SIGMOID COLON Physical Exam Vital Signs: Temp Pulse Resp BP Pulse Ox 99.3 F 104 H 16 116/45 L 97 05/16/17 12:12 05/16/17 12:12 05/16/17 12:12 05/16/17 12:12 05/16/17 12:12 Intake & Output 05/15/17 05/16/17 05/17/17 06:59 06:59 06:59 Intake Total 1576 766 Output Total 1050 1500 Balance 526 -734 Weight 85.9 kg 81 kg General appearance: PRESENT: no acute distress, cooperative, thin Head exam: PRESENT: atraumatic, normocephalic Mouth exam: PRESENT: moist, tongue midline Neck exam: ABSENT: carotid bruit, JVD, lymphadenopathy, thyromegaly Respiratory exam: PRESENT: clear to auscultation deonna. ABSENT: rales, rhonchi, wheezes Cardiovascular exam: PRESENT: RRR. ABSENT: diastolic murmur, rubs, systolic murmur Pulses: PRESENT: normal dorsalis pedis pul GI/Abdominal exam: PRESENT: soft, tenderness. ABSENT: ascites Extremities exam: PRESENT: full ROM. ABSENT: calf tenderness, clubbing, pedal edema Skin exam: PRESENT: dry, intact, warm. ABSENT: cyanosis, rash Results Laboratory Results: 05/16/17 05:48 05/16/17 05:48 05/16/17 05/16/17 05/16/17 05:48 05:48 05:48 WBC 9.8 RBC 3.36 L Hgb 10.2 L Hct 29.5 L MCV 88 MCH 30.5 MCHC 34.7 RDW 15.7 H Plt Count 444 Seg Neutrophils % 68.7 Lymphocytes % 17.8 Monocytes % 9.5 Eosinophils % 3.6 Basophils % 0.4 Absolute Neutrophils 6.7 Absolute Lymphocytes 1.7 Absolute Monocytes 0.9 Absolute Eosinophils 0.4 Absolute Basophils 0.0 Sodium 133.2 L Potassium 4.7 Chloride 100 Carbon Dioxide 26 Anion Gap 7 BUN 15 Creatinine 0.74 Est GFR ( Amer) > 60 Est GFR (Non-Af Amer) > 60 Glucose 98 Calcium 8.4 Albumin Prealbumin TSH 3.37 05/16/17 05:48 WBC RBC Hgb Hct MCV MCH MCHC RDW Plt Count Seg Neutrophils % Lymphocytes % Monocytes % Eosinophils % Basophils % Absolute Neutrophils Absolute Lymphocytes Absolute Monocytes Absolute Eosinophils Absolute Basophils Sodium Potassium Chloride Carbon Dioxide Anion Gap BUN Creatinine Est GFR ( Amer) Est GFR (Non-Af Amer) Glucose Calcium Albumin 2.6 L Prealbumin 11.3 L TSH 05/06/17 05/11/17 04:06 05:00 Creatine Kinase 248 H NT-Pro-B Natriuret Pep 1740 H Impressions: Shoulder X-Ray 05/04/17 00:00 IMPRESSION: Left shoulder arthroplasty. PICC Line Insertion 05/11/17 00:00 IMPRESSION: SUCCESSFUL PLACEMENT OF A 5 FR DUAL LUMEN 32 CM PICC IN THE RIGHT BASILIC VEIN. Chest CT 05/14/17 00:00 IMPRESSION: Significant left pleural effusion and smaller right pleural effusion with associated atelectatic changes in the lower lobes as described. Abdomen/Pelvis CT 05/15/17 00:00 IMPRESSION: Left lower quadrant colostomy. Irregular, but well-defined left pericolic recess abscess measuring on the order of 14 x 6 x 4 cm. Thoracentesis Ultrasound 05/15/17 00:00 IMPRESSION: SUCCESSFUL THORACENTESIS USING ULTRASOUND GUIDANCE. Chest X-Ray 05/15/17 11:25 IMPRESSION: No pneumothorax 2 hours post left thoracentesis. Minimal left basilar atelectasis persists. Assessment & Plan - Diagnosis (1) Abscess of abdominal cavity Is this a current diagnosis for this admission?: Yes Plan: On CT of abdomen from yesterday. Will discuss further with surgical services. (2) Anemia Qualifiers: Anemia type: iron deficiency Iron deficiency anemia type: chronic blood loss Qualified Code(s): D50.0 - Iron deficiency anemia secondary to blood loss (chronic) Is this a current diagnosis for this admission?: Yes Plan: monitoring for now, has been stable since transfusion (3) Hyponatremia Is this a current diagnosis for this admission?: Yes Plan: monitoring closely. Has been slowly decreasing. Repeat CMP in the morning. (4) Poor appetite Is this a current diagnosis for this admission?: Yes Plan: discussed with patient. at this time will just encourage meals. Would not recommend appetite stimulant at this time - Time Time Spent with patient: 25-34 minutes Medications reviewed and adjusted accordingly: Yes Anticipated discharge: Home Within: Other - Inpatient Certification Based on my medical assessment, after consideration of the patient's comorbidities, presenting symptoms, or acuity I expect that the services needed warrant INPATIENT care.: Yes I certify that my determination is in accordance with my understanding of Medicare's requirements for reasonable and necessary INPATIENT services [42 CFR 412.3e].: Yes Medical Necessity: Significant Comorbidiites Make Outpatient Treatment Too Risky , Need Close Monitoring Due to Risk of Patient Decompensation, Need for Surgery
[2017-05-16 12:40] LABS: PATH REVIEW PATHOLOGIST REVIEWED
[2017-05-16] MEDS: METOPROLOL SUCCINATE 50 MG TAB.SR.24H PO SCH (13:42)
[2017-05-16] MEDS: TRAMADOL HCL 50 MG TABLET PO PRN (15:49)
[2017-05-16] MEDS: AMPICILLIN SODIUM/SULBACTAM NA 3 GM in NORMAL SALINE 100 ML IV SCH ×2 (17:50→23:28)
--- NOTE | 2017-05-16 22:43 | PDOC PROGRESS REPORT ---
Subjective Progress Note for:: 05/16/17 Subjective:: POD #12 s/p sade's procedure for sigmoid perforation. Doing subjectively better but complains of heaviness of abdomen. Tolerating oral diet. Colostomy is functioning. No fever. Abdominal CT yesterday revealed a 14cm left paracolic fluid collection posibly abscess. Reason For Visit: PERFORATED SIGMOID COLON Physical Exam Vital Signs: Temp Pulse Resp BP Pulse Ox 99.3 F 115 H 16 121/55 L 98 05/16/17 20:06 05/16/17 20:06 05/16/17 20:06 05/16/17 20:06 05/16/17 20:06 Intake & Output 05/15/17 05/16/17 05/17/17 06:59 06:59 06:59 Intake Total 7854 172 9486 Output Total 1050 1500 1100 Balance 526 -734 200 Weight 85.9 kg 81 kg General appearance: PRESENT: no acute distress Respiratory exam: PRESENT: clear to auscultation deonna Cardiovascular exam: PRESENT: RRR. ABSENT: diastolic murmur, rubs, systolic murmur GI/Abdominal exam: PRESENT: other - incision with wound vac; coostomy is pink and functioning Neurological exam: PRESENT: alert, awake, oriented to person, oriented to place , oriented to time, oriented to situation, CN II-XII grossly intact. ABSENT: motor sensory deficit Results Laboratory Results: 05/16/17 05:48 05/16/17 05:48 05/16/17 05/16/17 05/16/17 05:48 05:48 05:48 WBC 9.8 RBC 3.36 L Hgb 10.2 L Hct 29.5 L MCV 88 MCH 30.5 MCHC 34.7 RDW 15.7 H Plt Count 444 Seg Neutrophils % 68.7 Lymphocytes % 17.8 Monocytes % 9.5 Eosinophils % 3.6 Basophils % 0.4 Absolute Neutrophils 6.7 Absolute Lymphocytes 1.7 Absolute Monocytes 0.9 Absolute Eosinophils 0.4 Absolute Basophils 0.0 Sodium 133.2 L Potassium 4.7 Chloride 100 Carbon Dioxide 26 Anion Gap 7 BUN 15 Creatinine 0.74 Est GFR ( Amer) > 60 Est GFR (Non-Af Amer) > 60 Glucose 98 Calcium 8.4 Albumin Prealbumin TSH 3.37 05/16/17 05:48 WBC RBC Hgb Hct MCV MCH MCHC RDW Plt Count Seg Neutrophils % Lymphocytes % Monocytes % Eosinophils % Basophils % Absolute Neutrophils Absolute Lymphocytes Absolute Monocytes Absolute Eosinophils Absolute Basophils Sodium Potassium Chloride Carbon Dioxide Anion Gap BUN Creatinine Est GFR ( Amer) Est GFR (Non-Af Amer) Glucose Calcium Albumin 2.6 L Prealbumin 11.3 L TSH 05/06/17 05/11/17 04:06 05:00 Creatine Kinase 248 H NT-Pro-B Natriuret Pep 1740 H Impressions: Shoulder X-Ray 05/04/17 00:00 IMPRESSION: Left shoulder arthroplasty. PICC Line Insertion 05/11/17 00:00 IMPRESSION: SUCCESSFUL PLACEMENT OF A 5 FR DUAL LUMEN 32 CM PICC IN THE RIGHT BASILIC VEIN. Chest CT 05/14/17 00:00 IMPRESSION: Significant left pleural effusion and smaller right pleural effusion with associated atelectatic changes in the lower lobes as described. Abdomen/Pelvis CT 05/15/17 00:00 IMPRESSION: Left lower quadrant colostomy. Irregular, but well-defined left pericolic recess abscess measuring on the order of 14 x 6 x 4 cm. Thoracentesis Ultrasound 05/15/17 00:00 IMPRESSION: SUCCESSFUL THORACENTESIS USING ULTRASOUND GUIDANCE. Chest X-Ray 05/15/17 11:25 IMPRESSION: No pneumothorax 2 hours post left thoracentesis. Minimal left basilar atelectasis persists. Assessment & Plan - Diagnosis (1) Perforated abdominal viscus Is this a current diagnosis for this admission?: Yes (2) Intra-abdominal fluid collection Is this a current diagnosis for this admission?: Yes (3) Malnutrition following gastrointestinal surgery Is this a current diagnosis for this admission?: Yes - Plan Summary Plan Summary: For CT-guided drainage of the fluid collection. Continue antibiotics. Protein supplements for low albumin and prealbumin.
[2017-05-16] MEDS: TRAZODONE HCL 50 MG TABLET PO SCH (22:51)
[2017-05-16] MEDS: OLANZAPINE 2.5 MG TABLET PO SCH (22:51)
[2017-05-16] MEDS: AMLODIPINE BESYLATE 2.5 MG TABLET PO SCH (23:04)
[2017-05-17] MEDS ORDERED: IBUPROFEN 600 MG TABLET PO PRN (01:22)
[2017-05-17] MEDS: LANSOPRAZOLE 30 MG TAB.RAP.DR PO SCH ×2 (06:40→17:24)
[2017-05-17] MEDS: AMPICILLIN SODIUM/SULBACTAM NA 3 GM in NORMAL SALINE 100 ML IV SCH ×4 (06:41→23:53)
[2017-05-17 07:53] LABS: ABSOLUTE BASOPHILS # (AUTO) 0.1 10^3/uL (0.0-0.2); ABSOLUTE EOSINOPHILS # (AUTO) 0.4 10^3/uL (0.0-0.6); ABSOLUTE LYMPHOCYTES (AUTO) 2.1 10^3/uL (0.5-4.7); ABSOLUTE MONOCYTES (AUTO) 0.9 10^3/uL (0.1-1.4); ABSOLUTE NEUT (AUTO) 6.5 10^3/uL (1.7-8.2); BASOPHILS % (AUTO) 0.6 % (0-2); EOSINOPHILS % (AUTO) 3.7 % (0-6); HEMATOCRIT 27.7 % (36.0-47.0); HEMOGLOBIN 9.2 g/dL (12.0-15.5); LYMPHOCYTES % (AUTO) 21.1 % (13-45); MEAN CORPUSCULAR HEMOGLOBIN 29.5 pg (27.0-33.4); MEAN CORPUSCULAR HGB CONC 33.2 g/dL (32.0-36.0); MEAN CORPUSCULAR VOLUME 89 fl (80-97); MONOCYTES % (AUTO) 9.3 % (3-13); PLATELET COUNT 430 10^3/uL (150-450); RED BLOOD COUNT 3.12 10^6/uL (3.72-5.28); RED CELL DISTRIBUTION WIDTH 15.5 % (11.5-14.0); SEGMENTED NEUTROPHILS % (AUTO) 65.3 % (42-78); TOTAL CELLS COUNTED % (AUTO) 100 %
[2017-05-17 08:01] LABS: ANION GAP 6 (5-19); BLOOD UREA NITROGEN 16 mg/dL (7-20); CALCIUM 8.2 mg/dL (8.4-10.2); CARBON DIOXIDE 26 mmol/L (22-30); CHLORIDE 105 mmol/L (98-107); GLUCOSE 84 mg/dL (75-110); POTASSIUM 4.1 mmol/L (3.6-5.0); SODIUM 137.3 mmol/L (137-145)
[2017-05-17] MEDS ORDERED: LIDOCAINE 1% INJ-PF (10 MG/ML) 30 ML SDV ONE (11:44)
[2017-05-17] MEDS ORDERED: FENTANYL CITRATE INJ/PF 100 MCG/2 ML AMPUL ONE (11:44)
[2017-05-17] MEDS ORDERED: MIDAZOLAM 2 MG/2 ML INJ ONE (11:44)
--- NOTE | 2017-05-17 12:44 | RADIOLOGY REPORT (SQ) ---
EXAM DESCRIPTION: CT FLUID DRAINAGE WITH CATH COMPLETED DATE/TIME: 05/17/2017 12:27 pm REASON FOR STUDY: abdominal abscess COMPARISON: None. TECHNIQUE: CT guided drainage of the pelvic abscess performed with conscious sedation. CT Fluoroscopy Time: [address] scanners at this facility use dose modulation, iterative reconstruction, and/or weight based d osing when appropriate to reduce radiation dose to as low as reasonably achievable (ALARA). [facility]: Dose Right [facility]: CareDose [facility]: Dose Right [facility]: Teradose 4D [facility]: [employer] RADIATION DOSE: CT Rad equipment meets quality standard of care and radiation dose reduction techni ques were employed. CTDIvol: 17.3 - 18.0 mGy. DLP: 1012 mGy-cm.mGy. FINDINGS: The procedure was discussed with the patient and the patient agreed to the procedure. Prio r to the procedure, a time out was performed to verify the patient's identity and planned procedure. IV sedation was administered and physician direction by the registered nurse using 1 milligrams of Ve rsed and 50 micrograms of fentanyl. Physiologic monitoring was provided before, during, and after sed ation. The total sedation time was 30 minutes. Documentation face to face time, the performing proceduralist, spent monitoring the patient: [address] scanning was performed to localize the percutaneous site for the drainage approach. After sterile skin prep and local lidocaine for skin and deep tissue anesthesia, a coaxial needle was position in the fluid collection in the left lower quadrant from an anterior approach. Needle was e xchanged for an 018 guidewire. Following serial dilation, an 8 [place] APD catheter was positioned an d secured. Serosanguineous fluid was aspirated and submitted to the lab for culture. A sterile dres sing was applied. There were no immediate complications. IMPRESSION: Successful CT-guided drainage of pelvic abscess. COMMENT: Quality ID 145: Final reports for procedures using fluoroscopy that document radiation exp osure indices, or exposure time and number of fluorographic images (if radiation exposure indices are not available) Patient medication list reviewed: Yes- Quality ID# [id number]:Eligible professional attests to documenting i n the medical record they obtained, updated, or reviewed the patient's current medications.. TECHNICAL DOCUMENTATION: JOB ID: [id number] Quality ID# [id number]: Final reports with documentation of one or more dose reduction techniques (e.g., Aut omated exposure control, adjustment of the mA and/or kV according to patient size, use of iterative r econstruction technique) 2010 [employer]- All Rights Reserved Reading location - IP/workstation name: [email or web address] TECH-[email or web address]-[email or web address]
[2017-05-17] MEDS: METOPROLOL SUCCINATE 50 MG TAB.SR.24H PO SCH (13:46)
[2017-05-17] MEDS: LISINOPRIL 10 MG TABLET PO SCH (13:47)
[2017-05-17] MEDS: ASCORBIC ACID 500 MG TABLET PO SCH ×2 (13:47→18:24)
[2017-05-17] MEDS: MULTIVITAMIN TABLET PO SCH (13:47)
[2017-05-17] MEDS: FERROUS SULFATE 325 MG TABLET PO SCH ×2 (13:50→18:24)
[2017-05-17] MEDS: DOCUSATE SODIUM 100 MG CAPSULE PO SCH ×2 (13:51→22:50)
--- NOTE | 2017-05-17 15:31 | PROGRESS NOTE E ---
Progress Note NAME: JOURDAN PEREZ : 1940 AGE: 76Y DATE: 05/17/2017 ROOM: 405 SUBJECTIVE: The patient has returned from having a drain placed. The patient has had no episodes of vomiting or diarrhea. The patient describes herself as just fatigued and so badly wants to go home. The patient does have family present at bedside, active and support in the patient's care. The patient did have fever overnight at 102.8, however, last recorded temperature was 98.2. The patient does not voice any specific concerns at this time. REVIEW OF SYSTEMS: Rest of review of systems negative. MEDICATIONS: Reviewed. OBJECTIVE: GENERAL: The patient is a 76-year-old female who is awake, alert. She is oriented to person, place, time, situation. She is verbal, conversational. Does not appear to be in distress. VITAL SIGNS: Temperature 98.2, pulse 87, respirations 16, blood pressure 106/54, oxygen saturation 98% on room air. SKIN: Warm and dry. No rashes. Not diaphoretic. HEENT: Pupils equal, round and reactive to light and accommodation. Conjunctivae pink. NECK: No evidence of JVP. CARDIOVASCULAR SYSTEM: Heart is regular. No murmur or rub. CHEST: Clear, symmetrical, nonlabored. ABDOMEN: Soft, nontender, mildly distended postoperative. Does have diffuse tenderness. EXTREMITIES: There is no edema. PSYCHIATRIC: Appropriate affect, understandably frustrated. Pleasant mood. DIAGNOSTICS: Lab values are as follows. Hematology obtained on 05/17/2017 demonstrates WBC 10.0, hemoglobin 9.2, hematocrit 27.7, platelet count is 430,000. Chemistry obtained on 05/17/2017: Sodium 137, potassium 4.1, chloride 106, carbon dioxide 26, BUN 16, creatinine 0.84, glucose 84, calcium 8.2, albumin 2.6, prealbumin is 11.3. IMPRESSION AND PLAN: 1. Abscess of the pelvic/abdominal cavity and the patient is status post drain. Do appreciate Surgery's guidance with this. We will follow culture and adjust antibiotics accordingly. 2. Anemia most likely due to poor absorption. Continue to supplement. This has been stable since transfusion. 3. hypovolemic/hyponatremia. This is normalized today. DISPOSITION: The patient is a FULL CODE. Pending the patient's symptomatology and diagnostic findings, we will reevaluate in the a.m. Time spent on this follow up including assessment and plan, physical examination, patient education, review of records, and family meeting is 25 minutes. DICTATING PHYSICIAN: HUGH NAVA NP [id number] PHY#: [id number] ID: [id number] JOB#: [id number] ACCT: [id number] cc: >
[2017-05-17] MEDS: NORMAL SALINE 10 ML SDV (SCHEDULED) IV SCH ×2 (17:24→23:40)
[2017-05-17] MEDS: HEPARIN SOD (PORCINE) 5,000 UNIT/ML 1 ML SYRINGE SUBCUT SCH ×2 (17:25→22:50)
--- NOTE | 2017-05-17 20:57 | PDOC PROGRESS REPORT ---
Subjective Reason For Visit: PERFORATED SIGMOID COLON Patient feeling better ambulating voiding having excessive stool output via colostomy. Had drain placed in the left lower abdominal compartment with sero- sanguinous material no pus no stool no blood. Patient feels fine. Physical Exam Vital Signs: Temp Pulse Resp BP Pulse Ox 97.9 F 90 18 120/47 L 100 05/17/17 16:00 05/17/17 16:00 05/17/17 16:00 05/17/17 16:00 05/17/17 16:00 Intake & Output 05/16/17 05/17/17 05/18/17 06:59 06:59 06:59 Intake Total 766 1500 360 Output Total 1500 1100 Balance -734 400 360 Weight 81 kg 81 kg General appearance: PRESENT: no acute distress GI/Abdominal exam: PRESENT: other - VAC in place; ostomy appliance in place; drain in place. Demented benign Results Laboratory Results: 05/17/17 07:15 05/17/17 07:15 05/15/17 05/15/17 05/15/17 09:15 09:15 09:15 WBC RBC Hgb Hct MCV MCH MCHC RDW Plt Count Seg Neutrophils % Lymphocytes % Monocytes % Eosinophils % Basophils % Absolute Neutrophils Absolute Lymphocytes Absolute Monocytes Absolute Eosinophils Absolute Basophils Sodium Potassium Chloride Carbon Dioxide Anion Gap BUN Creatinine Est GFR ( Amer) Est GFR (Non-Af Amer) Glucose Calcium Fluid Glucose 81 Fluid Total Protein Fluid LDH 464 Fluid Amylase 128 05/15/17 05/17/17 05/17/17 09:15 07:15 07:15 WBC 10.0 RBC 3.12 L Hgb 9.2 L Hct 27.7 L MCV 89 MCH 29.5 MCHC 33.2 RDW 15.5 H Plt Count 430 Seg Neutrophils % 65.3 Lymphocytes % 21.1 Monocytes % 9.3 Eosinophils % 3.7 Basophils % 0.6 Absolute Neutrophils 6.5 Absolute Lymphocytes 2.1 Absolute Monocytes 0.9 Absolute Eosinophils 0.4 Absolute Basophils 0.1 Sodium 137.3 Potassium 4.1 Chloride 105 Carbon Dioxide 26 Anion Gap 6 BUN 16 Creatinine 0.84 Est GFR ( Amer) > 60 Est GFR (Non-Af Amer) > 60 Glucose 84 Calcium 8.2 L Fluid Glucose Fluid Total Protein 3.5 Fluid LDH Fluid Amylase 03/15/18 03/20/18 04:06 05:00 Creatine Kinase 248 H NT-Pro-B Natriuret Pep 1740 H Impressions: Shoulder X-Ray 05/04/17 00:00 IMPRESSION: Left shoulder arthroplasty. PICC Line Insertion 05/11/17 00:00 IMPRESSION: SUCCESSFUL PLACEMENT OF A 5 FR DUAL LUMEN 32 CM PICC IN THE RIGHT BASILIC VEIN. Chest CT 05/14/17 00:00 IMPRESSION: Significant left pleural effusion and smaller right pleural effusion with associated atelectatic changes in the lower lobes as described. Abdomen/Pelvis CT 05/15/17 00:00 IMPRESSION: Left lower quadrant colostomy. Irregular, but well-defined left pericolic recess abscess measuring on the order of 14 x 6 x 4 cm. Thoracentesis Ultrasound 05/15/17 00:00 IMPRESSION: SUCCESSFUL THORACENTESIS USING ULTRASOUND GUIDANCE. Chest X-Ray 05/15/17 11:25 IMPRESSION: No pneumothorax 2 hours post left thoracentesis. Minimal left basilar atelectasis persists. Drainage Catheter Insertion 05/17/17 00:00 IMPRESSION: Successful CT-guided drainage of pelvic abscess. Assessment & Plan - Diagnosis (1) Wound infection after surgery Qualifiers: Encounter type: subsequent encounter Qualified Code(s): T81.4XXD - Infection following a procedure, subsequent encounter Is this a current diagnosis for this admission?: Yes Plan: Patient is doing much better clinically overall. No fever today. Neurologic, musculoskeletal and gastrointestinal systems all functioning satisfactorily. Recommendations: 1. I told the patient she is getting better as evidenced by progressive wound closure by secondary intention, excellent ostomy output, and better stamina. 2. Believe we can discontinue intravenous antibiotics, discontinue PICC line, discontinue her left lower quadrant drain; I do not think they are adding value to the patient's overall quality of life, and may be harming her recovery. 3. We will get home health involved with the wound VAC changing anticipate her following up with [facility]
[2017-05-17] MEDS: OLANZAPINE 2.5 MG TABLET PO SCH (22:50)
[2017-05-17] MEDS: TRAZODONE HCL 50 MG TABLET PO SCH (22:50)
[2017-05-17] MEDS: AMLODIPINE BESYLATE 2.5 MG TABLET PO SCH (22:50)
[2017-05-17] MEDS: ACETAMINOPHEN 325 MG TABLET PO PRN (23:48)
[2017-05-18] MEDS: LANSOPRAZOLE 30 MG TAB.RAP.DR PO SCH ×2 (05:42→21:34)
[2017-05-18] MEDS: AMPICILLIN SODIUM/SULBACTAM NA 3 GM in NORMAL SALINE 100 ML IV SCH (05:44)
[2017-05-18 05:57] LABS: HEMATOCRIT 27.6 % (36.0-47.0); HEMOGLOBIN 9.4 g/dL (12.0-15.5); MEAN CORPUSCULAR HEMOGLOBIN 30.1 pg (27.0-33.4); MEAN CORPUSCULAR VOLUME 89 fl (80-97); PLATELET COUNT 432 10^3/uL (150-450); RED BLOOD COUNT 3.12 10^6/uL (3.72-5.28); RED CELL DISTRIBUTION WIDTH 15.4 % (11.5-14.0); WHITE BLOOD COUNT 9.1 10^3/uL (4.0-10.5)
[2017-05-18 06:30] LABS: ANION GAP 7 (5-19); BLOOD UREA NITROGEN 14 mg/dL (7-20); CALCIUM 8.3 mg/dL (8.4-10.2); CARBON DIOXIDE 24 mmol/L (22-30); CHLORIDE 105 mmol/L (98-107); GLUCOSE 85 mg/dL (75-110); POTASSIUM 4.1 mmol/L (3.6-5.0); SODIUM 135.9 mmol/L (137-145)
--- NOTE | 2017-05-18 09:05 | PDOC PROGRESS REPORT ---
Subjective Progress Note for:: 05/18/17 Subjective:: Appetite has improved. Patient wants to go home. Reason For Visit: PERFORATED SIGMOID COLON Physical Exam Vital Signs: Temp Pulse Resp BP Pulse Ox 98.9 F 98 16 125/47 L 97 05/18/17 04:00 05/17/17 23:22 05/17/17 23:22 05/17/17 23:22 05/17/17 23:22 Intake & Output 05/17/17 05/18/17 05/19/17 06:59 06:59 06:59 Intake Total 1500 1480 Output Total 1100 850 Balance 400 630 Weight 81 kg 83.3 kg General appearance: PRESENT: no acute distress, cooperative Respiratory exam: PRESENT: clear to auscultation deonna Cardiovascular exam: PRESENT: RRR GI/Abdominal exam: PRESENT: other - Soft, nondistended, nontender to palpation. Drain is in place with serosanguineous output. Wound VAC is in place. There is no surrounding erythema. Extremities exam: PRESENT: other - Right upper extremity PICC line in place. No erythema around the exit site. No leg swelling or tenderness. Neurological exam: PRESENT: alert, awake Results Laboratory Results: 05/18/17 05:45 05/18/17 05:45 05/18/17 05/18/17 05:45 05:45 WBC 9.1 RBC 3.12 L Hgb 9.4 L Hct 27.6 L MCV 89 MCH 30.1 MCHC 34.0 RDW 15.4 H Plt Count 432 Sodium 135.9 L Potassium 4.1 Chloride 105 Carbon Dioxide 24 Anion Gap 7 BUN 14 Creatinine 0.69 Est GFR ( Amer) > 60 Est GFR (Non-Af Amer) > 60 Glucose 85 Calcium 8.3 L Magnesium 2.0 05/06/17 05/11/17 04:06 05:00 Creatine Kinase 248 H NT-Pro-B Natriuret Pep 1740 H Impressions: Shoulder X-Ray 05/04/17 00:00 IMPRESSION: Left shoulder arthroplasty. PICC Line Insertion 05/11/17 00:00 IMPRESSION: SUCCESSFUL PLACEMENT OF A 5 FR DUAL LUMEN 32 CM PICC IN THE RIGHT BASILIC VEIN. Chest CT 05/14/17 00:00 IMPRESSION: Significant left pleural effusion and smaller right pleural effusion with associated atelectatic changes in the lower lobes as described. Abdomen/Pelvis CT 05/15/17 00:00 IMPRESSION: Left lower quadrant colostomy. Irregular, but well-defined left pericolic recess abscess measuring on the order of 14 x 6 x 4 cm. Thoracentesis Ultrasound 05/15/17 00:00 IMPRESSION: SUCCESSFUL THORACENTESIS USING ULTRASOUND GUIDANCE. Chest X-Ray 05/15/17 11:25 IMPRESSION: No pneumothorax 2 hours post left thoracentesis. Minimal left basilar atelectasis persists. Drainage Catheter Insertion 05/17/17 00:00 IMPRESSION: Successful CT-guided drainage of pelvic abscess. Assessment & Plan - Diagnosis (1) Perforated abdominal viscus Is this a current diagnosis for this admission?: Yes Plan: Perforated sigmoid diverticulitis status post sigmoidectomy with end colostomy. Overall has improved however she continues to have fever nightly. Suspicious for possible line infection. Will DC her PICC line and culture the tip. Will await culture results from her intraperitoneal drain. If the culture results are negative will DC her drain. Patient and her family would strongly like to avoid another IV. With her clinical stability otherwise we will keep the IV out and switch her over to p.o. antibiotic until her cultures proved to be negative.
[2017-05-18] MEDS: MULTIVITAMIN TABLET PO SCH (10:50)
[2017-05-18] MEDS: HEPARIN SOD (PORCINE) 5,000 UNIT/ML 1 ML SYRINGE SUBCUT SCH ×2 (10:50→21:33)
[2017-05-18] MEDS: FERROUS SULFATE 325 MG TABLET PO SCH ×2 (10:50→21:34)
[2017-05-18] MEDS: LISINOPRIL 10 MG TABLET PO SCH (10:51)
[2017-05-18] MEDS: DOCUSATE SODIUM 100 MG CAPSULE PO SCH ×2 (10:55→21:36)
[2017-05-18] MEDS: NORMAL SALINE 10 ML SDV (SCHEDULED) IV SCH ×2 (10:55→21:36)
[2017-05-18] MEDS: ASCORBIC ACID 500 MG TABLET PO SCH ×2 (10:55→21:34)
[2017-05-18] MEDS: TRAMADOL HCL 50 MG TABLET PO PRN (13:25)
[2017-05-18] MEDS: AMOXICILLIN TR/POT CLAVULANATE 500-125 MG TAB PO SCH ×2 (13:25→21:36)
[2017-05-18] MEDS: METOPROLOL SUCCINATE 50 MG TAB.SR.24H PO SCH (13:26)
--- NOTE | 2017-05-18 20:19 | PDOC PROGRESS REPORT ---
Subjective Progress Note for:: 05/18/17 Subjective:: 76 yo Female with unfortunate hx of sigmoid perforation requiring surgical intervention and hartmans pouch. Patient with gradual recovery and central abdomin wound vac in place. Due to persistent fevers and abdominal pain she received a CT abd which showed a fluid collection: [id number]. A drain was placed two days later. Unclear how much was taken from the drain at the time of placement. No growth on culture at present, only one day for growth. Agree with surgery, regarding concern for PICC line. PICC removed, and tip culture is pending. Patient was frustrated about staying in the hospital, and has continued to have temperature elevations at night. She is currently receiving Augmentin PO, and does wish to avoid IV antibiotics at present. Abdomen was not very tender on examination. Reason For Visit: PERFORATED SIGMOID COLON Physical Exam Vital Signs: Temp Pulse Resp BP Pulse Ox 99.3 F 96 24 H 135/52 H 96 05/18/17 10:00 05/18/17 10:00 05/18/17 10:00 05/18/17 10:00 05/18/17 10:00 Intake & Output 05/17/17 05/18/17 05/19/17 06:59 06:59 06:59 Intake Total 1500 1480 226 Output Total 1100 850 1 Balance 400 630 225 Weight 81 kg 83.3 kg General appearance: PRESENT: no acute distress, obese Head exam: PRESENT: atraumatic, normocephalic Eye exam: PRESENT: EOMI, PERRLA. ABSENT: nystagmus Ear exam: PRESENT: normal external ear exam. ABSENT: bleeding Mouth exam: PRESENT: moist, neck supple Neck exam: PRESENT: full ROM. ABSENT: carotid bruit, JVD, tenderness Respiratory exam: ABSENT: rales, rhonchi, wheezes Cardiovascular exam: PRESENT: RRR, +S1, +S2 Pulses: PRESENT: normal radial pulses Vascular exam: PRESENT: normal capillary refill. ABSENT: pallor GI/Abdominal exam: PRESENT: normal bowel sounds, soft, other - midline incision with wound vac in place, left lower quadrant with drain in place. ABSENT: firm , guarding, rebound, rigid Extremities exam: ABSENT: clubbing, joint swelling Musculoskeletal exam: PRESENT: full ROM. ABSENT: ambulatory Neurological exam: PRESENT: alert, oriented to person, oriented to place, oriented to time, oriented to situation, CN II-XII grossly intact Psychiatric exam: PRESENT: agitated. ABSENT: anxious, manic Focused psych exam: ABSENT: delusional, paranoid Skin exam: ABSENT: dry, pallor, rash Results Laboratory Results: 05/18/17 05:45 05/18/17 05:45 05/18/17 05/18/17 05:45 05:45 WBC 9.1 RBC 3.12 L Hgb 9.4 L Hct 27.6 L MCV 89 MCH 30.1 MCHC 34.0 RDW 15.4 H Plt Count 432 Sodium 135.9 L Potassium 4.1 Chloride 105 Carbon Dioxide 24 Anion Gap 7 BUN 14 Creatinine 0.69 Est GFR ( Amer) > 60 Est GFR (Non-Af Amer) > 60 Glucose 85 Calcium 8.3 L Magnesium 2.0 05/06/17 05/11/17 04:06 05:00 Creatine Kinase 248 H NT-Pro-B Natriuret Pep 1740 H Impressions: Shoulder X-Ray 05/04/17 00:00 IMPRESSION: Left shoulder arthroplasty. PICC Line Insertion 05/11/17 00:00 IMPRESSION: SUCCESSFUL PLACEMENT OF A 5 FR DUAL LUMEN 32 CM PICC IN THE RIGHT BASILIC VEIN. Chest CT 05/14/17 00:00 IMPRESSION: Significant left pleural effusion and smaller right pleural effusion with associated atelectatic changes in the lower lobes as described. Abdomen/Pelvis CT 05/15/17 00:00 IMPRESSION: Left lower quadrant colostomy. Irregular, but well-defined left pericolic recess abscess measuring on the order of 14 x 6 x 4 cm. Thoracentesis Ultrasound 05/15/17 00:00 IMPRESSION: SUCCESSFUL THORACENTESIS USING ULTRASOUND GUIDANCE. Chest X-Ray 05/15/17 11:25 IMPRESSION: No pneumothorax 2 hours post left thoracentesis. Minimal left basilar atelectasis persists. Drainage Catheter Insertion 05/17/17 00:00 IMPRESSION: Successful CT-guided drainage of pelvic abscess. Assessment & Plan - Time Time Spent with patient: 15-24 minutes - Inpatient Certification Based on my medical assessment, after consideration of the patient's comorbidities, presenting symptoms, or acuity I expect that the services needed warrant INPATIENT care.: Yes Medical Necessity: Risk of Complication if Not Cared For in Hospital - Plan Summary Plan Summary: (1) Abscess of abdominal cavity On CT of abdomen drain in place, no significant output in bag this AM culture pending on Augmentin PO coverage, patient requests no further IVs (2) Fever unclear etiology. PICC line removed: possible line infection: tip culture pending possible intraabdominal abscess source with drain in place recent surgery with large midline abdominal wound healing w/ wound vac (3) Anemia stable since transfusion monitor (4) Hyponatremia improving (5) Poor appetite encouraged her meal
[2017-05-18] MEDS: ACETAMINOPHEN 325 MG TABLET PO PRN (20:26)
[2017-05-18] MEDS: AMLODIPINE BESYLATE 2.5 MG TABLET PO SCH (21:34)
[2017-05-18] MEDS: OLANZAPINE 2.5 MG TABLET PO SCH (21:34)
[2017-05-18] MEDS: TRAZODONE HCL 50 MG TABLET PO SCH (21:35)
[2017-05-19] MEDS: AMOXICILLIN TR/POT CLAVULANATE 500-125 MG TAB PO SCH ×2 (05:36→15:45)
[2017-05-19] MEDS: LANSOPRAZOLE 30 MG TAB.RAP.DR PO SCH ×2 (05:36→18:42)
[2017-05-19 05:44] LABS: HEMATOCRIT 27.7 % (36.0-47.0); HEMOGLOBIN 9.4 g/dL (12.0-15.5); MEAN CORPUSCULAR HEMOGLOBIN 29.9 pg (27.0-33.4); MEAN CORPUSCULAR VOLUME 88 fl (80-97); PLATELET COUNT 407 10^3/uL (150-450); RED BLOOD COUNT 3.14 10^6/uL (3.72-5.28); RED CELL DISTRIBUTION WIDTH 15.5 % (11.5-14.0); WHITE BLOOD COUNT 8.1 10^3/uL (4.0-10.5)
[2017-05-19 06:04] LABS: ALBUMIN 2.8 g/dL (3.5-5.0); ANION GAP 9 (5-19); BLOOD UREA NITROGEN 13 mg/dL (7-20); CALCIUM 8.5 mg/dL (8.4-10.2); CARBON DIOXIDE 24 mmol/L (22-30); CHLORIDE 103 mmol/L (98-107); GLUCOSE 90 mg/dL (75-110); PHOSPHORUS 4.4 mg/dL (2.5-4.5); POTASSIUM 4.5 mmol/L (3.6-5.0)
[2017-05-19] MEDS: ASCORBIC ACID 500 MG TABLET PO SCH ×2 (11:03→18:43)
[2017-05-19] MEDS: HEPARIN SOD (PORCINE) 5,000 UNIT/ML 1 ML SYRINGE SUBCUT SCH (11:03)
[2017-05-19] MEDS: DOCUSATE SODIUM 100 MG CAPSULE PO SCH (11:04)
[2017-05-19] MEDS: MULTIVITAMIN TABLET PO SCH (11:04)
[2017-05-19] MEDS: FERROUS SULFATE 325 MG TABLET PO SCH ×2 (11:04→18:42)
[2017-05-19] MEDS: LISINOPRIL 10 MG TABLET PO SCH (11:04)
[2017-05-19] MEDS: NORMAL SALINE 10 ML SDV (SCHEDULED) IV SCH (11:07)
[2017-05-19] MEDS: METOPROLOL SUCCINATE 50 MG TAB.SR.24H PO SCH (15:44)
[2017-05-19] MEDS: TRAMADOL HCL 50 MG TABLET PO PRN (17:03)
[2017-05-19] MEDS ORDERED: LIDOCAINE 0.5% INJ-PF (5 MG/ML) 50 ML SDV ONE (17:22)
[2017-05-19 18:34] VITALS: BP 128/48
--- NOTE | 2017-05-19 20:14 | OPERATIVE REPORT E ---
Operative Report NAME: JOURDAN PEREZ : 1940 AGE: 76Y DATE OF SURGERY: 05/19/2017 ROOM: 405 PREOPERATIVE DIAGNOSIS: Clean subcu abdominal wound post wound V.A.C. placement. POSTOPERATIVE DIAGNOSIS: Clean subcu abdominal wound post wound V.A.C. placement. OPERATION: Secondary closure of abdominal wound incision, subcu and skin. SURGEON: ZOEY XIE M.D. ANESTHESIA: Local INDICATIONS FOR PROCEDURE: This is a 76-year-old female who underwent exploratory laparotomy with a Mohsen procedure for ruptured sigmoid diverticulitis on 05/04/17. After 2 or 3 days, patient needed a wound V.A.C. The wound V.A.C. was removed today prior to discharge. The plan is actually to send the patient home with another wound V.A.C. Fortunately, the wound looks very clean and dry and with good granulation tissue. The upper abdominal wound was then closed with Steri-Strips and the lower abdominal wound closed with sutures. PROCEDURE: Patient was placed in supine position while in bed and the abdominal wound prepped and draped in the usual sterile fashion. This was done after removal of the wound V.A.C. The wound looks very good and clean. Next, local anesthesia infiltrated along the lower half of the midline incision roughly measuring about 5 inches long. Next, the subcu and skin were then closed with simple sutures of 2-0 nylon using about 4 sutures. Next, another suture using 3-0 nylon was used in between the large sutures and above and more superior and then the lowest suture using about 6 of these. The wound looks fairly closed but not too tight. Next, the upper abdominal wound which was almost coapted, was then closed with Steri-Strips. Sterile 4x4s and Tegaderm dressings were used to cover the repaired incision site. This was done to make sure there is no contamination of the wound by the colostomy. The Tegaderm will be kept in place for at least 3-4 days. However, if there is any redness or any fever for the visiting nurse to give us a call and for further management. Meantime, I gave the patient a 4 days dose of Augmentin 500 mg p.o. twice a day. Patient tolerated the procedure well. DICTATING PHYSICIAN: ZOEY XIE M.D. [id number] PHY#: [id number] ID: [id number] JOB#: [id number] ACCT: [id number] cc:ZOEY XIE M.D. >
--- NOTE | 2017-05-20 08:49 | DISCHARGE SUMMARY E ---
Discharge Summary NAME: JOURDAN PEREZ : 1940 AGE: 76Y ADMITTED: 05/03/2017 DISCHARGED: 05/19/2017 FINAL DIAGNOSES: 1. Acute perforation of sigmoid colon with peritonitis. 2. Acute renal failure. 3. Congestive heart failure. 4. Abdominal wound incision infection. 5. Respiratory failure. PROCEDURE DONE ON 05/04/17: 1. Exploratory laparotomy. 2. Copious lavage of abdomen with saline. 3. Resection of perforated sigmoid colon with Mohsen's pouch and sigmoid colostomy. Surgeon: Dr. Xie. PROCEDURE DONE ON 05/09/17: Debridement of abdominal wound incision and placement of a wound VAC. Surgeon: Dr. Calderón. HOSPITAL COURSE: This is a 76-year-old female who suddenly complained of severe abdominal pains just prior to going to the Emergency Room. In the Emergency Room, a CAT scan of the abdomen revealed free air, and patient noted to have diffuse abdominal tenderness. She was taken to the operating room immediately for exploratory laparotomy. She was noted to have a perforated sigmoid colon with generalized peritonitis. Copious lavage of the abdominal cavity was done followed by resection of the sigmoid colon with perforation with end sigmoid colostomy and Mohsen's pouch. Postoperatively, the patient needed to be intubated for a few days and a Pulmonary consultation obtained with Dr. Padgett who eventually extubated the patient. The patient also noted to have acute renal failure and was seen by hospitalist and boiling house oiler, Dr. Romo. This also eventually resolved. She also developed congestive heart failure which also was managed medically. She had an abdominal wound infection and treated with a debridement and wound VAC on 05/09/17. All the patient's cultures from the blood and the drain were all negative. She did have percutaneous drainage of fluid in the pelvis done on 05/17/17, which just drained light serosanguineous fluid with the cultures negative. This drain was removed on the day of discharge on 05/19/17. Also on the day of discharge, the wound VAC was removed and the abdominal incision looks clean and dry with no evidence of infection. Therefore, the lower abdominal incision was closed secondarily under local anesthesia with simple sutures of 2-0 and 3-0 nylon. The upper incision just above the umbilicus appears to be coaptating well and this was closed with Steri-Strips. Patient did have a low-grade fever on the morning of discharge but then spontaneously went down to normal. She was then given about 4 days of Augmentin 500 mg p.o. twice a day. She will be followed up by a wound care nurse for the colostomy care and to be followed up in the Surgical Clinic in 2 weeks for removal of the sutures. Patient was then discharged improved on 05/19/17 with the above final diagnoses. DICTATING PHYSICIAN: ZOEY XIE M.D. [id number] PHY#: [id number] ID: [id number] JOB#: [id number] ACCT: [id number] cc:Juanita VALENZUELA M.D. >
--- NOTE | 2017-05-22 21:05 | PDOC PROGRESS REPORT ---
Subjective Progress Note for:: 05/11/17 Subjective:: s/p extubation doing well post op Reason For Visit: PERFORATED SIGMOID COLON Physical Exam Vital Signs: Temp Pulse Resp BP Pulse Ox 99.0 F 105 H 17 138/66 H 96 05/11/17 08:05 05/11/17 08:05 05/11/17 08:05 05/11/17 08:05 05/11/17 08:05 Intake & Output 05/10/17 05/11/17 05/12/17 06:59 06:59 06:59 Intake Total 710 1142 Output Total 200 525 Balance 510 617 Weight 90.8 kg 91.1 kg General appearance: PRESENT: no acute distress, cooperative, disheveled, well- developed Head exam: PRESENT: atraumatic, normocephalic Eye exam: PRESENT: conjunctiva pale, EOMI. ABSENT: nystagmus, periorbital swelling, scleral icterus Mouth exam: PRESENT: dry mucosa, neck supple, tongue midline Neck exam: ABSENT: carotid bruit, JVD, lymphadenopathy, thyromegaly, tracheal deviation, tracheostomy Respiratory exam: PRESENT: decreased breath sounds, prolonged expiratory phas, rhonchi, symmetrical, unlabored, wheezes. ABSENT: retraction, stridor Cardiovascular exam: PRESENT: RRR, +S1, +S2 Pulses: PRESENT: normal radial pulses GI/Abdominal exam: PRESENT: diminished bowel sounds, soft Extremities exam: ABSENT: calf tenderness, clubbing, joint swelling Musculoskeletal exam: ABSENT: deformity, dislocation Neurological exam: PRESENT: awake Skin exam: PRESENT: dry, warm Results Laboratory Results: 05/09/17 04:26 05/11/17 05:00 05/11/17 05:00 Sodium 133.6 L Potassium 3.4 L Chloride 100 Carbon Dioxide 26 Anion Gap 8 BUN 12 Creatinine 0.65 Est GFR ( Amer) > 60 Est GFR (Non-Af Amer) > 60 Glucose 90 Calcium 7.6 L 05/06/17 05/11/17 04:06 05:00 Creatine Kinase 248 H NT-Pro-B Natriuret Pep 1740 H Impressions: Abdomen/Pelvis CT 05/03/17 19:43 IMPRESSION: There is free air and fluid in the abdomen suggestive of gastrointestinal perforation. Site is uncertain. Shoulder X-Ray 05/04/17 00:00 IMPRESSION: Left shoulder arthroplasty. Chest X-Ray 05/07/17 06:00 IMPRESSION: Increased moderate left lower lobar opacity/effusion. Assessment & Plan - Diagnosis (1) Metabolic acidosis Is this a current diagnosis for this admission?: Yes (2) Perforated abdominal viscus Is this a current diagnosis for this admission?: Yes Plan: As per surgery (3) Renal failure Qualifiers: Renal failure chronicity: unspecified chronicity Qualified Code(s): N19 - Unspecified kidney failure Is this a current diagnosis for this admission?: No Plan: resolved (4) Respiratory failure Is this a current diagnosis for this admission?: Yes Plan: improving
--- NOTE | 2017-05-22 21:06 | PDOC PROGRESS REPORT ---
Subjective Progress Note for:: 05/12/17 Subjective:: s/p extubation doing well post op Reason For Visit: PERFORATED SIGMOID COLON Physical Exam Vital Signs: Temp Pulse Resp BP Pulse Ox 100.2 F 102 H 14 128/48 H 97 05/19/17 18:28 05/19/17 18:28 05/19/17 18:28 05/19/17 18:28 05/19/17 18:28 Intake & Output 05/20/17 05/21/17 05/22/17 06:59 06:59 06:59 Intake Total 477 Output Total 700 Balance -223 General appearance: PRESENT: no acute distress, cooperative, disheveled Head exam: PRESENT: atraumatic, normocephalic Eye exam: PRESENT: conjunctiva pale, EOMI. ABSENT: nystagmus, periorbital swelling, scleral icterus Mouth exam: PRESENT: dry mucosa, neck supple, tongue midline Neck exam: ABSENT: carotid bruit, JVD, lymphadenopathy, thyromegaly, tracheal deviation, tracheostomy Respiratory exam: PRESENT: decreased breath sounds, prolonged expiratory phas, rhonchi, symmetrical, unlabored. ABSENT: stridor Cardiovascular exam: PRESENT: RRR, +S1, +S2 Pulses: PRESENT: normal radial pulses GI/Abdominal exam: PRESENT: diminished bowel sounds, soft Extremities exam: ABSENT: calf tenderness, clubbing, joint swelling Musculoskeletal exam: ABSENT: deformity, dislocation Neurological exam: PRESENT: awake Skin exam: PRESENT: dry, warm Results Laboratory Results: 05/19/17 04:32 05/19/17 04:32 05/18/17 09:20 Catheter Tip - Picc Line Catheter Tip Culture - Final NO GROWTH 3 DAYS 05/17/17 12:20 Abdominal Fluid Gram Stain - Final 05/17/17 12:20 Abdominal Fluid Body Fluid Culture - Final NO AEROBIC OR ANAEROBIC ORGANISMS RECOVERED 05/06/17 05/11/17 04:06 05:00 Creatine Kinase 248 H NT-Pro-B Natriuret Pep 1740 H Impressions: Shoulder X-Ray 05/04/17 00:00 IMPRESSION: Left shoulder arthroplasty. PICC Line Insertion 05/11/17 00:00 IMPRESSION: SUCCESSFUL PLACEMENT OF A 5 FR DUAL LUMEN 32 CM PICC IN THE RIGHT BASILIC VEIN. Chest CT 05/14/17 00:00 IMPRESSION: Significant left pleural effusion and smaller right pleural effusion with associated atelectatic changes in the lower lobes as described. Abdomen/Pelvis CT 05/15/17 00:00 IMPRESSION: Left lower quadrant colostomy. Irregular, but well-defined left pericolic recess abscess measuring on the order of 14 x 6 x 4 cm. Thoracentesis Ultrasound 05/15/17 00:00 IMPRESSION: SUCCESSFUL THORACENTESIS USING ULTRASOUND GUIDANCE. Chest X-Ray 05/15/17 11:25 IMPRESSION: No pneumothorax 2 hours post left thoracentesis. Minimal left basilar atelectasis persists. Drainage Catheter Insertion 05/17/17 00:00 IMPRESSION: Successful CT-guided drainage of pelvic abscess. Assessment & Plan - Diagnosis (1) Metabolic acidosis Is this a current diagnosis for this admission?: No (2) Perforated abdominal viscus Is this a current diagnosis for this admission?: Yes Plan: As per surgery (3) Renal failure Qualifiers: Renal failure chronicity: unspecified chronicity Qualified Code(s): N19 - Unspecified kidney failure Is this a current diagnosis for this admission?: No (4) Respiratory failure Is this a current diagnosis for this admission?: Yes Plan: improving
--- NOTE | 2017-05-22 21:08 | PDOC PROGRESS REPORT ---
Subjective Progress Note for:: 05/13/17 Subjective:: s/p extubation doing well post op Reason For Visit: PERFORATED SIGMOID COLON Physical Exam Vital Signs: Temp Pulse Resp BP Pulse Ox 100.2 F 102 H 14 128/48 H 97 05/19/17 18:28 05/19/17 18:28 05/19/17 18:28 05/19/17 18:28 05/19/17 18:28 Intake & Output 05/20/17 05/21/17 05/22/17 06:59 06:59 06:59 Intake Total 477 Output Total 700 Balance -223 General appearance: PRESENT: no acute distress, cooperative, disheveled Head exam: PRESENT: atraumatic, normocephalic Eye exam: PRESENT: conjunctiva pale, EOMI Mouth exam: PRESENT: dry mucosa, neck supple, tongue midline Neck exam: ABSENT: carotid bruit, JVD, lymphadenopathy, thyromegaly, tracheal deviation, tracheostomy Respiratory exam: PRESENT: decreased breath sounds, prolonged expiratory phas, rales, rhonchi, symmetrical, unlabored, wheezes. ABSENT: retraction, stridor, tachypnea Cardiovascular exam: PRESENT: RRR, +S1 Pulses: PRESENT: normal radial pulses GI/Abdominal exam: PRESENT: diminished bowel sounds, soft Extremities exam: ABSENT: calf tenderness, clubbing, joint swelling Musculoskeletal exam: ABSENT: deformity, dislocation Neurological exam: PRESENT: awake Skin exam: PRESENT: dry, warm Results Laboratory Results: 05/19/17 04:32 05/19/17 04:32 05/18/17 09:20 Catheter Tip - Picc Line Catheter Tip Culture - Final NO GROWTH 3 DAYS 05/17/17 12:20 Abdominal Fluid Gram Stain - Final 05/17/17 12:20 Abdominal Fluid Body Fluid Culture - Final NO AEROBIC OR ANAEROBIC ORGANISMS RECOVERED 05/06/17 05/11/17 04:06 05:00 Creatine Kinase 248 H NT-Pro-B Natriuret Pep 1740 H Impressions: Shoulder X-Ray 05/04/17 00:00 IMPRESSION: Left shoulder arthroplasty. PICC Line Insertion 05/11/17 00:00 IMPRESSION: SUCCESSFUL PLACEMENT OF A 5 FR DUAL LUMEN 32 CM PICC IN THE RIGHT BASILIC VEIN. Chest CT 05/14/17 00:00 IMPRESSION: Significant left pleural effusion and smaller right pleural effusion with associated atelectatic changes in the lower lobes as described. Abdomen/Pelvis CT 05/15/17 00:00 IMPRESSION: Left lower quadrant colostomy. Irregular, but well-defined left pericolic recess abscess measuring on the order of 14 x 6 x 4 cm. Thoracentesis Ultrasound 05/15/17 00:00 IMPRESSION: SUCCESSFUL THORACENTESIS USING ULTRASOUND GUIDANCE. Chest X-Ray 05/15/17 11:25 IMPRESSION: No pneumothorax 2 hours post left thoracentesis. Minimal left basilar atelectasis persists. Drainage Catheter Insertion 05/17/17 00:00 IMPRESSION: Successful CT-guided drainage of pelvic abscess. Assessment & Plan - Diagnosis (1) Metabolic acidosis Is this a current diagnosis for this admission?: Yes (2) Perforated abdominal viscus Is this a current diagnosis for this admission?: Yes Plan: As per surgery (3) Renal failure Qualifiers: Renal failure chronicity: unspecified chronicity Qualified Code(s): N19 - Unspecified kidney failure Is this a current diagnosis for this admission?: No (4) Respiratory failure Is this a current diagnosis for this admission?: Yes Plan: improving
--- NOTE | 2017-05-22 21:09 | PDOC PROGRESS REPORT ---
Subjective Progress Note for:: 05/14/17 Subjective:: s/p extubation doing well post op Reason For Visit: PERFORATED SIGMOID COLON Physical Exam Vital Signs: Temp Pulse Resp BP Pulse Ox 100.2 F 102 H 14 128/48 H 97 05/19/17 18:28 05/19/17 18:28 05/19/17 18:28 05/19/17 18:28 05/19/17 18:28 Intake & Output 05/20/17 05/21/17 05/22/17 06:59 06:59 06:59 Intake Total 477 Output Total 700 Balance -223 General appearance: PRESENT: no acute distress, cooperative, disheveled Head exam: PRESENT: atraumatic, normocephalic Eye exam: PRESENT: conjunctiva pale, EOMI. ABSENT: nystagmus, periorbital swelling, scleral icterus Mouth exam: ABSENT: dry mucosa, neck supple, tongue midline Neck exam: ABSENT: carotid bruit, JVD, lymphadenopathy, thyromegaly, tracheal deviation, tracheostomy Respiratory exam: PRESENT: decreased breath sounds, prolonged expiratory phas, rhonchi, symmetrical, unlabored, wheezes. ABSENT: rales, retraction, stridor, tachypnea Cardiovascular exam: PRESENT: RRR, +S1, +S2 Pulses: PRESENT: normal radial pulses GI/Abdominal exam: PRESENT: diminished bowel sounds, soft Extremities exam: ABSENT: calf tenderness, clubbing, joint swelling Musculoskeletal exam: ABSENT: deformity, dislocation Neurological exam: PRESENT: awake Skin exam: PRESENT: dry, warm Results Laboratory Results: 05/19/17 04:32 05/19/17 04:32 05/18/17 09:20 Catheter Tip - Picc Line Catheter Tip Culture - Final NO GROWTH 3 DAYS 05/17/17 12:20 Abdominal Fluid Gram Stain - Final 05/17/17 12:20 Abdominal Fluid Body Fluid Culture - Final NO AEROBIC OR ANAEROBIC ORGANISMS RECOVERED 05/06/17 05/11/17 04:06 05:00 Creatine Kinase 248 H NT-Pro-B Natriuret Pep 1740 H Impressions: Shoulder X-Ray 05/04/17 00:00 IMPRESSION: Left shoulder arthroplasty. PICC Line Insertion 05/11/17 00:00 IMPRESSION: SUCCESSFUL PLACEMENT OF A 5 FR DUAL LUMEN 32 CM PICC IN THE RIGHT BASILIC VEIN. Chest CT 05/14/17 00:00 IMPRESSION: Significant left pleural effusion and smaller right pleural effusion with associated atelectatic changes in the lower lobes as described. Abdomen/Pelvis CT 05/15/17 00:00 IMPRESSION: Left lower quadrant colostomy. Irregular, but well-defined left pericolic recess abscess measuring on the order of 14 x 6 x 4 cm. Thoracentesis Ultrasound 05/15/17 00:00 IMPRESSION: SUCCESSFUL THORACENTESIS USING ULTRASOUND GUIDANCE. Chest X-Ray 05/15/17 11:25 IMPRESSION: No pneumothorax 2 hours post left thoracentesis. Minimal left basilar atelectasis persists. Drainage Catheter Insertion 05/17/17 00:00 IMPRESSION: Successful CT-guided drainage of pelvic abscess. Assessment & Plan - Diagnosis (1) Metabolic acidosis Is this a current diagnosis for this admission?: Yes (2) Perforated abdominal viscus Is this a current diagnosis for this admission?: Yes Plan: As per surgery (3) Renal failure Qualifiers: Renal failure chronicity: unspecified chronicity Qualified Code(s): N19 - Unspecified kidney failure Is this a current diagnosis for this admission?: No (4) Respiratory failure Is this a current diagnosis for this admission?: Yes Plan: improving
--- NOTE | 2017-05-22 21:11 | PDOC PROGRESS REPORT ---
Subjective Progress Note for:: 05/17/17 Subjective:: s/p extubation doing well post op Reason For Visit: PERFORATED SIGMOID COLON Physical Exam Vital Signs: Temp Pulse Resp BP Pulse Ox 100.2 F 102 H 14 128/48 H 97 05/19/17 18:28 05/19/17 18:28 05/19/17 18:28 05/19/17 18:28 05/19/17 18:28 Intake & Output 05/20/17 05/21/17 05/22/17 06:59 06:59 06:59 Intake Total 477 Output Total 700 Balance -223 General appearance: PRESENT: no acute distress, disheveled Head exam: PRESENT: atraumatic, normocephalic Eye exam: PRESENT: conjunctiva pale, EOMI. ABSENT: nystagmus, periorbital swelling, other Mouth exam: PRESENT: dry mucosa, neck supple, tongue midline Neck exam: ABSENT: carotid bruit, JVD, lymphadenopathy, thyromegaly, tracheal deviation, tracheostomy Respiratory exam: PRESENT: decreased breath sounds, prolonged expiratory phas, rhonchi, symmetrical, unlabored, wheezes. ABSENT: rales, retraction, stridor, tachypnea Cardiovascular exam: PRESENT: RRR, +S1, +S2 Pulses: PRESENT: normal radial pulses GI/Abdominal exam: PRESENT: diminished bowel sounds, soft Extremities exam: ABSENT: calf tenderness, clubbing, joint swelling Musculoskeletal exam: ABSENT: deformity, dislocation Neurological exam: PRESENT: awake Skin exam: PRESENT: dry, warm Results Laboratory Results: 05/19/17 04:32 05/19/17 04:32 05/18/17 09:20 Catheter Tip - Picc Line Catheter Tip Culture - Final NO GROWTH 3 DAYS 05/17/17 12:20 Abdominal Fluid Gram Stain - Final 05/17/17 12:20 Abdominal Fluid Body Fluid Culture - Final NO AEROBIC OR ANAEROBIC ORGANISMS RECOVERED 05/06/17 05/11/17 04:06 05:00 Creatine Kinase 248 H NT-Pro-B Natriuret Pep 1740 H Impressions: Shoulder X-Ray 05/04/17 00:00 IMPRESSION: Left shoulder arthroplasty. PICC Line Insertion 05/11/17 00:00 IMPRESSION: SUCCESSFUL PLACEMENT OF A 5 FR DUAL LUMEN 32 CM PICC IN THE RIGHT BASILIC VEIN. Chest CT 05/14/17 00:00 IMPRESSION: Significant left pleural effusion and smaller right pleural effusion with associated atelectatic changes in the lower lobes as described. Abdomen/Pelvis CT 05/15/17 00:00 IMPRESSION: Left lower quadrant colostomy. Irregular, but well-defined left pericolic recess abscess measuring on the order of 14 x 6 x 4 cm. Thoracentesis Ultrasound 05/15/17 00:00 IMPRESSION: SUCCESSFUL THORACENTESIS USING ULTRASOUND GUIDANCE. Chest X-Ray 05/15/17 11:25 IMPRESSION: No pneumothorax 2 hours post left thoracentesis. Minimal left basilar atelectasis persists. Drainage Catheter Insertion 05/17/17 00:00 IMPRESSION: Successful CT-guided drainage of pelvic abscess. Assessment & Plan - Diagnosis (1) Metabolic acidosis Is this a current diagnosis for this admission?: Yes (2) Perforated abdominal viscus Is this a current diagnosis for this admission?: Yes (3) Renal failure Qualifiers: Renal failure chronicity: unspecified chronicity Qualified Code(s): N19 - Unspecified kidney failure Is this a current diagnosis for this admission?: No (4) Respiratory failure Is this a current diagnosis for this admission?: Yes Plan: improving
--- NOTE | 2017-05-22 21:12 | PDOC PROGRESS REPORT ---
Subjective Progress Note for:: 05/18/17 Subjective:: s/p extubation doing well post op Reason For Visit: PERFORATED SIGMOID COLON Physical Exam Vital Signs: Temp Pulse Resp BP Pulse Ox 100.2 F 102 H 14 128/48 H 97 05/19/17 18:28 05/19/17 18:28 05/19/17 18:28 05/19/17 18:28 05/19/17 18:28 Intake & Output 05/20/17 05/21/17 05/22/17 06:59 06:59 06:59 Intake Total 477 Output Total 700 Balance -223 General appearance: PRESENT: no acute distress, disheveled Head exam: PRESENT: atraumatic, normocephalic Eye exam: PRESENT: conjunctiva pale, EOMI. ABSENT: nystagmus, periorbital swelling, scleral icterus Mouth exam: PRESENT: dry mucosa, neck supple, tongue midline Neck exam: ABSENT: carotid bruit, JVD, lymphadenopathy, thyromegaly, tracheal deviation Respiratory exam: PRESENT: decreased breath sounds, prolonged expiratory phas, rhonchi, symmetrical, unlabored, wheezes. ABSENT: rales, retraction, stridor, tachypnea Cardiovascular exam: PRESENT: RRR, +S1, +S2 Pulses: PRESENT: normal radial pulses GI/Abdominal exam: PRESENT: diminished bowel sounds, soft Extremities exam: ABSENT: calf tenderness, clubbing, joint swelling Musculoskeletal exam: ABSENT: deformity, dislocation Neurological exam: PRESENT: awake Skin exam: PRESENT: dry, warm Results Laboratory Results: 05/19/17 04:32 05/19/17 04:32 05/18/17 09:20 Catheter Tip - Picc Line Catheter Tip Culture - Final NO GROWTH 3 DAYS 05/17/17 12:20 Abdominal Fluid Gram Stain - Final 05/17/17 12:20 Abdominal Fluid Body Fluid Culture - Final NO AEROBIC OR ANAEROBIC ORGANISMS RECOVERED 05/06/17 05/11/17 04:06 05:00 Creatine Kinase 248 H NT-Pro-B Natriuret Pep 1740 H Impressions: Shoulder X-Ray 05/04/17 00:00 IMPRESSION: Left shoulder arthroplasty. PICC Line Insertion 05/11/17 00:00 IMPRESSION: SUCCESSFUL PLACEMENT OF A 5 FR DUAL LUMEN 32 CM PICC IN THE RIGHT BASILIC VEIN. Chest CT 05/14/17 00:00 IMPRESSION: Significant left pleural effusion and smaller right pleural effusion with associated atelectatic changes in the lower lobes as described. Abdomen/Pelvis CT 05/15/17 00:00 IMPRESSION: Left lower quadrant colostomy. Irregular, but well-defined left pericolic recess abscess measuring on the order of 14 x 6 x 4 cm. Thoracentesis Ultrasound 05/15/17 00:00 IMPRESSION: SUCCESSFUL THORACENTESIS USING ULTRASOUND GUIDANCE. Chest X-Ray 05/15/17 11:25 IMPRESSION: No pneumothorax 2 hours post left thoracentesis. Minimal left basilar atelectasis persists. Drainage Catheter Insertion 05/17/17 00:00 IMPRESSION: Successful CT-guided drainage of pelvic abscess. Assessment & Plan - Diagnosis (1) Metabolic acidosis Is this a current diagnosis for this admission?: Yes (2) Perforated abdominal viscus Is this a current diagnosis for this admission?: Yes Plan: As per surgery (3) Renal failure Qualifiers: Renal failure chronicity: unspecified chronicity Qualified Code(s): N19 - Unspecified kidney failure Is this a current diagnosis for this admission?: No (4) Respiratory failure Is this a current diagnosis for this admission?: Yes Plan: stable
== END 2017-05-19 19:00 | disposition home health service (06) | DRG 329 ==
LOC: ER 17:49 → EH 21:12 → ICU 05-04 00:32 → 4N 05-08 03:25
PROVIDERS: ADMIT Surgery; ATTEND Surgery
PROC: 0D1N0Z4 Bypass Sigmoid Colon to Cutaneous, Open Approach (ICD-10-PCS; 2017-05-03)
PROC: 0DTN0ZZ Resection of Sigmoid Colon, Open Approach (ICD-10-PCS; principal; 2017-05-03 22:00)
PROC: 5A1945Z Respiratory Ventilation, 24-96 Consecutive Hours (ICD-10-PCS; 2017-05-04)
PROC: 0BH17EZ Insertion of Endotracheal Airway into Trachea, Via Natural or Artificial Opening (ICD-10-PCS; 2017-05-04)
PROC: 0HD7XZZ Extraction of Abdomen Skin, External Approach (ICD-10-PCS; 2017-05-09)
PROC: 02HV33Z Insertion of Infusion Device into Superior Vena Cava, Percutaneous Approach (ICD-10-PCS; 2017-05-11)
PROC: 30233N1 Transfusion of Nonautologous Red Blood Cells into Peripheral Vein, Percutaneous Approach (ICD-10-PCS; 2017-05-13)
PROC: 0W9B3ZX Drainage of Left Pleural Cavity, Percutaneous Approach, Diagnostic (ICD-10-PCS; 2017-05-15)
PROC: 0W9G3ZX Drainage of Peritoneal Cavity, Percutaneous Approach, Diagnostic (ICD-10-PCS; 2017-05-17)
PROC: 0JQ83ZZ Repair Abdomen Subcutaneous Tissue and Fascia, Percutaneous Approach (ICD-10-PCS; 2017-05-19)
DX: K57.20 Diverticulitis of large intestine with perforation and abscess without bleeding (principal); J96.01 Acute respiratory failure with hypoxia; I50.31 Acute diastolic (congestive) heart failure; N17.9 Acute kidney failure, unspecified; T81.4XXA Infection following a procedure, initial encounter; I13.0 Hypertensive heart and chronic kidney disease with heart failure and stage 1 through stage 4 chronic kidney disease, or unspecified chronic kidney disease; E87.2 Acidosis; J91.8 Pleural effusion in other conditions classified elsewhere; E87.1 Hypo-osmolality and hyponatremia; K91.2 Postsurgical malabsorption, not elsewhere classified; Z66 Do not resuscitate; E11.22 Type 2 diabetes mellitus with diabetic chronic kidney disease; N18.9 Chronic kidney disease, unspecified; M19.012 Primary osteoarthritis, left shoulder; M19.011 Primary osteoarthritis, right shoulder; E83.51 Hypocalcemia; E87.6 Hypokalemia; B95.2 Enterococcus as the cause of diseases classified elsewhere; G47.00 Insomnia, unspecified; D50.0 Iron deficiency anemia secondary to blood loss (chronic); Y83.6 Removal of other organ (partial) (total) as the cause of abnormal reaction of the patient, or of later complication, without mention of misadventure at the time of the procedure; Z79.899 Other long term (current) drug therapy; Z88.2 Allergy status to sulfonamides; Z88.6 Allergy status to analgesic agent; Z78.1 Physical restraint status
CPT/HCPCS: 00790; 00840; 32555; 36415; 36430; 36569; 49405; 71045; 71046; 71260; 74177; 80048; 80053; 80069; 81001; 82040; 82150; 82550; 82803; 82945; 82962; 83605; 83615; 83690; 83735; 83880; 84100; 84132; 84134; 84157; 84443; 84478; 84550; 85025; 85027; 85610; 85730; 86850; 86900; 86901; 86920; 87070; 87075; 87077; 87086; 87186; 87205; 88307; 89050; 93306; 94002; 94003; 94799; 96365; 96375; 96376; 99291; C1729; C1769; C1894; G8978-GP; G8979-GP; J0131; J0295; J0330; J0610; J0744; J1100; J1642; J1644; J1650; J1940; J2020; J2250; J2405; J2543; J2704; J3010; J3475; J3480; J3490; J7030; J7040; P9016; S0028

== ENCOUNTER 2017-10-14 08:21 | Day surgery (SDC) | payer MEDICARE ==
[~2017-10-14 08:21] MED LIST changes: +DIPHENHYDRAMINE HCL 50 MG/ML VIAL ONE; +EPINEPHRINE INJ 1 MG/10 ML DISP.SYRIN ONE; +FLUMAZENIL INJ 0.5 MG/5 ML VIAL ONE; +GLUCAGON,HUMAN RECOMB 1 MG INJ ONE; -GLYCOPYRROLATE INJ 0.4 MG/2 ML VIAL ONE; +NALOXONE HCL INJ/PF 0.4 MG/1 ML SDV ONE; -NEOSTIGMINE METHYLSULFATE 10 MG/10 ML VIAL ONE; +ONDANSETRON HCL INJ/PF 4 MG/2 ML SDV ONE; -SUCCINYLCHOLINE CHLORIDE INJ 200 MG/10 ML VIAL ONE; -VECURONIUM BROMIDE INJ 10 MG VIAL IV ONE
[2017-10-14] MEDS: MIDAZOLAM 2 MG/2 ML INJ ONE ×5 (09:02→09:35)
[2017-10-14] MEDS: FENTANYL CITRATE INJ/PF 100 MCG/2 ML AMPUL ONE ×6 (09:04→09:30)
--- NOTE | 2017-10-14 09:52 | Discharge Summary ---
Discharge Summary (SDC) - Discharge Final Diagnosis: Normal colon; diversion proctitis Date of Surgery: 10/14/17 Discharge Date: 10/14/17 Condition: Good Treatment or Instructions: [place] [id number] POST ENDOSCOPY DISCHARGE INSTRUCTIONS 1. Diet: Start clear liquids that a regular diet as tolerated. 2. Resume all preoperative medications. All oral anticoagulants and aspirins can be resumed 24 hours after procedure. 3. If a polypectomy was performed some bleeding per rectum may occur. This should stop within 3 days. If not, please contact the office. 4. If you had a colonoscopy you may experience some bloating and delayed return of normal bowel function for several days, your regular bowel movement pattern should resume within a week. 5. Please contact [facility] at to make an appointment with Dr. Thompson for 1 to 3 weeks following procedure. 6. If you have any questions or concerns regarding your care,treatment plan or follow up, please contact our office. 7. Per clinical guidelines we recommend you undergo a repeat colonoscopy in 10 years. Referrals: ANALILIA VALDIVIA MD [Primary Care Provider] - Discharge Diet: As Tolerated Discharge Activity: Activity As Tolerated Home Care Assistance: None Needed Report the Following to Your Physician Immediately: Shortness of Breath, Increase in Pain, Fever over 101 Degrees
--- NOTE | 2017-10-14 09:57 | Operative Report ---
Operative Report DATE OF SURGERY: 10/14/17 PREOPERATIVE DIAGNOSIS: 1. Status post colectomy, colostomy for complicated diverticular disease. 2. Need for screening colonoscopy POSTOPERATIVE DIAGNOSIS: Normal: Via colostomy; mild diversion proctitis OPERATION: 1. Total colonoscopy to cecum via diverting descending colonoscopy. 2. Flexible proctoscopy. 3. Manual disimpaction of stool from anorectal canal SURGEON: ROSETTA JACK ANESTHESIA: Moderate Sedation TISSUE REMOVED OR ALTERED: Stool COMPLICATIONS: None ESTIMATED BLOOD LOSS: Scant INTRAOPERATIVE FINDINGS: See below PROCEDURE: The patient was taken to the preop holding her to the main endoscopy suite where conscious sedation was induced. Surgical plan surgical timeout conducted. The patient was left in the supine position, ostomy appliance bag removed. The descending colostomy was digitalized with a lubricated index finger and there is no evidence of mass or cyst in cyst. The flexible adult colonoscope was advanced through the descending colon colostomy all the way to the cecum. This was an excellent study and a well- prepped bowel. Transillumination of the anterior abdominal wall and visualization of landmarks including ileocecal valve confirmed cecal intubation The scope was withdrawn to light the colon check a mucosa carefully. There was no evidence of tumor stricture, bleeding, polyp, or diverticulosis. The colon was felt to be normal. The scope was withdrawn from the colostomy. Now rotated the patient in the extreme left lateral decubitus position. Rectal exam was performed. Sphincter tone was slightly elevated. There were mild external hemorrhoids. Rectal exam revealed multiple balls of formed stool which were manually disimpacted. Higher up in the rectal canal there were additional balls of formed stool which were manually lysed. We now inserted the adult colonoscope in the anal canal all the way up to at least 22 cm from the anal verge. There was still some residual stool at the proximal point of the Bianchi's pouch. 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 No evidence of ulceration tumor stricture. Minimal stool was left in the very proximal pouch. The scope was otherwise withdrawn. Patient tolerated the procedure well Patient has been cleared for colostomy takedown as there is no contraindication. She will be a candidate for surveillance colonoscopy in 10 years.
[2017-10-14 10:53] VITALS: BP 149/76
== END 2017-10-14 11:05 | disposition home or self-care (01) ==
LOC: END 08:21
PROVIDERS: ATTEND Surgery
DX: K62.89 Other specified diseases of anus and rectum (principal); K64.4 Residual hemorrhoidal skin tags; K94.03 Colostomy malfunction; K56.41 Fecal impaction; Z88.5 Allergy status to narcotic agent; Z88.2 Allergy status to sulfonamides; M19.90 Unspecified osteoarthritis, unspecified site; Z79.899 Other long term (current) drug therapy; Z01.818 Encounter for other preprocedural examination
CPT/HCPCS: 44388; 45300; J2250; J3010; J0171; J1200; J1610; J2310; J2405; J3490

== ENCOUNTER 2017-11-03 11:30 | Inpatient (IN) | payer MEDICARE ==
[2017-10-29 12:06] LABS: HEMOGLOBIN 12.4 g/dL (12.0-15.5); MEAN CORPUSCULAR HEMOGLOBIN 31.4 pg (27.0-33.4); MEAN CORPUSCULAR HGB CONC 34.4 g/dL (32.0-36.0); MEAN CORPUSCULAR VOLUME 91 fl (80-97); PLATELET COUNT 172 10^3/uL (150-450); RED BLOOD COUNT 3.94 10^6/uL (3.72-5.28); RED CELL DISTRIBUTION WIDTH 13.7 % (11.5-14.0); WHITE BLOOD COUNT 5.1 10^3/uL (4.0-10.5)
[2017-10-29 12:30] LABS: ANION GAP 9 (5-19); BLOOD UREA NITROGEN 15 mg/dL (7-20); CARBON DIOXIDE 28 mmol/L (22-30); CHLORIDE 105 mmol/L (98-107); GLUCOSE 95 mg/dL (75-110); POTASSIUM 4.3 mmol/L (3.6-5.0)
--- NOTE | 2017-10-29 13:13 | EKG REPORT ---
SEVERITY:- NORMAL ECG - SINUS RHYTHM : Confirmed by: Ramu Acevedo MD 29-Oct-2017 13:12:24
[2017-11-24] MEDS ORDERED: LIDOCAINE 0.5% INJ-PF (5 MG/ML) 50 ML SDV SUBCUT PRN (05:00)
[2017-11-24] MEDS ORDERED: LACTATED RINGERS 1000 ML IV PRN (05:00)
[2017-11-24] MEDS ORDERED: AMPICILLIN SODIUM/SULBACTAM NA 3 GM in NORMAL SALINE 50 ML IV PRN (05:00)
[2017-11-24] MEDS ORDERED: AMPICILLIN SODIUM/SULBACTAM NA 3 GM in NORMAL SALINE 100 ML IV PRN (05:00)
[2017-11-24] MEDS ORDERED: SUCCINYLCHOLINE CHLORIDE INJ 200 MG/10 ML VIAL ONE (08:40)
[2017-11-24] MEDS ORDERED: LIDOCAINE 2% INJ-PF (20 MG/ML) 2 ML AMPUL ONE (08:40)
[2017-11-24] MEDS ORDERED: ROCURONIUM BROMIDE INJ 50 MG/5 ML VIAL IV ONE (08:40)
[2017-11-24] MEDS ORDERED: GLYCOPYRROLATE 1 MG/5 ML SYRINGE ONE (08:40)
[2017-11-24] MEDS ORDERED: DEXAMETHASONE SOD PHOSPHATE INJ 4 MG/1 ML VIAL ONE (08:40)
[2017-11-24] MEDS ORDERED: NEOSTIGMINE METHYLSULFATE 10 MG/10 ML VIAL ONE (08:40)
[2017-11-24] MEDS ORDERED: ONDANSETRON HCL INJ/PF 4 MG/2 ML SDV ONE (08:40)
[2017-11-24] MEDS ORDERED: BUPIVACAINE HCL 0.5 % INJ/PF 30 ML SDV ONE (11:08)
[2017-11-24] MEDS ORDERED: BUPIVACAINE INJ/PF LIPOSOME/PF 266 MG/20 ML SDV ONE (11:08)
[2017-11-24] MEDS ORDERED: FENTANYL CITRATE INJ/PF 100 MCG/2 ML AMPUL ONE (12:44)
[2017-11-24] MEDS ORDERED: MEPERIDINE HCL/PF INJ 25 MG/1 ML DISP.SYRIN IV PRN ×2 (13:17→14:16)
[2017-11-24] MEDS ORDERED: DIPHENHYDRAMINE HCL 50 MG/ML VIAL IV PRN ×2 (13:17→14:16)
[2017-11-24] MEDS ORDERED: FENTANYL CITRATE INJ/PF 100 MCG/2 ML AMPUL IV PRN ×6 (13:17→14:16)
[2017-11-24] MEDS ORDERED: PROMETHAZINE HCL INJ 25 MG/1 ML VIAL IV PRN ×4 (13:17→14:16)
[2017-11-24] MEDS ORDERED: OXYCODONE-ACETAMINOPHEN 5-325 MG TABLET PO PRN ×2 (14:16)
[2017-11-24] MEDS ORDERED: ONDANSETRON HCL INJ/PF 4 MG/2 ML SDV IV PRN ×2 (14:16→14:59)
[2017-11-24] MEDS ORDERED: MORPHINE SULFATE 10 MG/ML INJ IV PRN (14:16)
[2017-11-24] MEDS ORDERED: KETOROLAC TROMETHAMINE INJ/PF 30 MG/1 ML SDV IV PRN (14:59)
--- NOTE | 2017-11-24 15:17 | Operative Report ---
Operative Report DATE OF SURGERY: 11/24/17 PREOPERATIVE DIAGNOSIS: History of complicated diverticulitis, perforation, sigmoid colectomy and diverting colostomy POSTOPERATIVE DIAGNOSIS: Same with diversion proctitis and retained stool stump feces OPERATION: 1. Takedown of diverting colostomy. 2. Lysis of adhesions, intra- abdominal cavity and pelvis. 3. Stapled colorectostomy with 29 EEA stapler. 4. Rigid sigmoidoscopy with fecal disimpaction of rectal stump. 5. Conclusion possible sigmoidoscopy. 6. Pelvic drainage. SURGEON: ROSETTA THOMPSON ANESTHESIA: GA TISSUE REMOVED OR ALTERED: Portions of colostomy takedown COMPLICATIONS: None ESTIMATED BLOOD LOSS: 100 cc INTRAOPERATIVE FINDINGS: See below PROCEDURE: The patient was taken for the preop holding her to the main operating room where general anesthesia was induced. Patient was placed in the supine, stirrups position. A Eason catheter was inserted and the pubic area shaved of hair. Digital examination was performed of the anal canal by Dr. Thompson. There was a mild amount of anal stenosis. The anal canal dilated up easily to accept to adult fingers. I performed rigid sigmoidoscopy with a conventional adult sigmoidoscope. Approximately 6 hard stool balls were removed from the rectum possibly 15 cm from the anal verge. There appeared to be additional stool proximal to this area they could not be retrieved at this time due to the tortuosity of the rectal stump. The abdomen was prepped and draped in a sterile fashion after closing the diverting colostomy with a running 2-0 Prolene suture. Surgical plan surgical timeout were conducted The skin around the colostomy was anesthetized with 1% plain lidocaine. The colostomy was now taken down by dividing the skin-mucosal interface with a #10 blade, dissecting out the entire extraperitoneal portion of the colostomy using a combination of blunt and electrocautery dissection. We stapled off the colostomy suture closure with a SREEDHAR 55 stapler. The end colostomy was allowed to talk into the peritoneal cavity. We now anesthetized the midline incision with quarter percent Marcaine plain. The abdomen was opened through the previous midline scar just above the umbilicus down to the pelvic region with a #10 blade. The peritoneal cavity was sharply entered, carefully extending the incision for the complete length of the skin opening. There were extensive adhesions between the small bowel and the anterior abdominal wall and these were taken down using a combination of blunt and sharp dissection. The remaining attachments affixing the colostomy to the intra-abdominal wall were also taken down. Fortunately the colostomy was in good shape. There was no visible evidence of residual diverticular disease. We now establish the Bookwalter retracting system and mobilized the small bowel out of the pelvis. The patient still had her uterus, tubes and ovaries although the latter were atrophied. We spent a fair amount of time mobilizing the rectal stump which was quite lengthy. It had a Prolene suture left from the time of the initial exploratory surgery by Dr. Vazquez. The stump was mobilized in a circumferential fashion. It was viable without any evidence of perforation or obvious stricture. We did massage some of the residual feces down into the mid rectal canal We now had the small bowel packed off with the retractor in the right upper quadrant. We brought the descending colon down into the field. We felt it was mobilized satisfactorily without the need to take down the splenic flexure. We now move forward with the planned anastomosis using EEA stapler. A pursestring string device fired across the distal end of the descending colon. Finally I was not satisfied with the position of the suture, and securing janene to the bowel wall therefore I removed it and sewed a pursestring of 3-0 PDS suture in a running continuous fashion. Once this was accomplished we visualized the lumen and there was no significant stool here. Dilated the lumen to accommodate a 29 mm obturator. The colon was small and could not accommodate a larger generator. Therefore we brought onto the field a 29 mm EEA stapler, took the locking, distal component and place it into the lumen of the descending colon secured the pursestring. Some of the redundant fatty tissue around the the pursestring was sharply debrided Dr. Thompson went down below and attempted to advance the obturator up to the transected portion of the rectal stump. Unfortunately there was resistance, it appeared to be due to some tethering of the rectum. Therefore he scrubbed back into the field, and performed additional, limited adhesio lysis of the rectal stump. We were now down to the peritoneal reflection. The portion of the rectum above the reflection was at least 8-9 cm. So this was a rather long rectal stump likely rectosigmoid technically speaking. Again I went below and try to advance the obturator but I never felt we had good stenting in the apex of the rectal stump. Therefore performed rigid sigmoidoscopy and identified more fecal stool balls wedged up into the very high rectal stump and gradually we are able to massage these out of the rectal stump and out of the patient. Repeat insertion of the obturator, #29, resulted in nice contact with the rectal stump staple line. We now brought the stapling component of the EEA up the anal rectal canal secured into position, and were satisfied with the configuration of the stapler. The pin was brought out just anterior to the previous rectal transection staple line and the proximal, descending colon component was brought down and the 2 components locked into position and the stapler secured. We checked for any interposing tissue and there was none. The stapler was fired, and then removed per protocol. We filled the pelvis up with saline, inserted the rigid proctoscope, and insufflated the rectosigmoid anastomosis. The bowel dilated up nicely, and there is no evidence of leak. We confirmed the gentleman C of the anastomosis by bringing it flexible and 3. I scope the patient with the flexible colonoscope up to approximately 30 cm. I traversed the anus ecchymosis easily. It was in good shape no evidence of stenosis and again no leaking of air after insufflating the bowel and filling the pelvis with fluid The colonoscope was removed air decompressed and the pelvis reexpanded inspected checked for bleeding. A large Sg drain was placed in left lower quadrant. It was brought to the anterior abdominal wall secured to skin with 2- 0 Prolene suture. It was tucked into the perirectal space. The colostomy fascial defect was closed anteriorly and posteriorly with #1 PDS sutures in a running continuous fashion, vertically oriented. At this point felt the operation was complete. Congenial counts are correct. We reinspected the anastomosis and it was in good condition. Abdomen was closed with 2 double-stranded #1 PDS sutures, and all incisions closed with janene. The colostomy site was closed over a Raulito drain fragment. 40 cc of diluted Exparel was deployed at the subcutaneous tissue. Patient tolerated procedure well, extubated, taken recovery in stable condition.
[2017-11-24] MEDS: FENTANYL CITRATE INJ/PF 100 MCG/2 ML AMPUL ONE ×2 (15:21→15:26)
[2017-11-24] MEDS ORDERED: KETOROLAC TROMETHAMINE INJ/PF 30 MG/1 ML SDV ONE (16:02)
[2017-11-24] MEDS: ACETAMINOPHEN 1,000 MG/100 ML RTUPB IV SCH (17:55)
[2017-11-24] MEDS ORDERED: ACETAMINOPHEN INJ/PF 1000 MG/100 ML SDV IV SCH (18:00)
[2017-11-24] MEDS: AMPICILLIN SODIUM/SULBACTAM NA 3 GM in NORMAL SALINE 100 ML IV SCH (21:06)
[2017-11-24] MEDS ORDERED: LORAZEPAM INJ 2 MG/1 ML VIAL IV ONE (21:30)
[2017-11-25] MEDS: ACETAMINOPHEN 1,000 MG/100 ML RTUPB IV SCH ×5 (00:32→23:13)
[2017-11-25] MEDS: AMPICILLIN SODIUM/SULBACTAM NA 3 GM in NORMAL SALINE 100 ML IV SCH ×3 (05:49→21:09)
[2017-11-25] MEDS ORDERED: KETOROLAC TROMETHAMINE INJ/PF 30 MG/1 ML SDV IV PRN (08:45)
[2017-11-25] MEDS ORDERED: ONDANSETRON HCL INJ/PF 4 MG/2 ML SDV IV PRN (09:00)
--- NOTE | 2017-11-25 09:40 | PDOC PROGRESS REPORT ---
Subjective Progress Note for:: 11/25/17 Subjective:: Patient had uneventful night; pain controlled; no nausea or vomiting. Did not get up out of bed yet Reason For Visit: Z93.3 COLOSTOMY STATUS Physical Exam Vital Signs: Temp Pulse Resp BP Pulse Ox 98.3 F 99 12 121/50 L 100 11/25/17 07:46 11/25/17 07:46 11/25/17 07:46 11/25/17 07:46 11/25/17 07:46 Intake & Output 11/24/17 11/25/17 11/26/17 06:59 06:59 06:59 Intake Total 3800 Output Total 1375 Balance 2425 Weight 75.7 kg General appearance: PRESENT: no acute distress GI/Abdominal exam: PRESENT: other - Appropriately tender, serosanguineous fluid in drain; dressings with postop drainage. Results Laboratory Results: 10/29/17 11:02 10/29/17 11:02 Assessment & Plan - Diagnosis (1) Status post colostomy takedown Is this a current diagnosis for this admission?: Yes Plan: Impression: Patient is 1 day status post colostomy takedown by Dr. Thompson; no immediate postoperative complications; adequate fluid resuscitation Recommendations: 1. Up out of bed; if doing well, anticipate DC Eason today 2. We will start surgical sips of clear liquids 3. Patient with adequate pain control; will add p.o. Percocet as needed pain 4. Anticipate drain removal tomorrow. 4. Discontinue IV antibiotics after last dose today
[2017-11-25] MEDS: OXYCODONE-ACETAMINOPHEN 5-325 MG TABLET PO PRN (10:48)
[2017-11-25] MEDS: RINGERS SOLUTION,LACTATED 1,000 ML IV PRN ×2 (13:22→23:56)
[2017-11-26] MEDS: OXYCODONE-ACETAMINOPHEN 5-325 MG TABLET PO PRN (04:09)
[2017-11-26] MEDS: AMPICILLIN SODIUM/SULBACTAM NA 3 GM in NORMAL SALINE 100 ML IV SCH (05:35)
[2017-11-26] MEDS: ACETAMINOPHEN 1,000 MG/100 ML RTUPB IV SCH ×4 (07:20→23:21)
--- NOTE | 2017-11-26 09:15 | PDOC PROGRESS REPORT ---
Subjective Progress Note for:: 11/26/17 Subjective:: No complaints, patient ambulating, voiding, tolerating clear liquids, no nausea Reason For Visit: Z93.3 COLOSTOMY STATUS Physical Exam Vital Signs: Temp Pulse Resp BP Pulse Ox 99.0 F 106 H 16 160/62 H 96 11/26/17 07:14 11/26/17 07:14 11/26/17 07:14 11/26/17 07:14 11/26/17 07:14 Intake & Output 11/25/17 11/26/17 11/27/17 06:59 06:59 06:59 Intake Total 3800 1700 100 Output Total 1375 1275 Balance 2425 425 100 Weight 75.7 kg 75.9 kg General appearance: PRESENT: no acute distress GI/Abdominal exam: PRESENT: other - dressings removed; drains removed; minimal SS drainage from colostomy closure site Results Laboratory Results: 10/29/17 11:02 10/29/17 11:02 Assessment & Plan - Diagnosis (1) Status post colostomy takedown Is this a current diagnosis for this admission?: Yes Plan: Patient is postoperative day 2 status post colostomy takedown, with wound closure, drains out, tolerating clear liquids, on p.o. medication for pain Recommendations: 1. Maintain clear liquids possibly advance to soft mechanical later today, 2. Ambulate in halls 3. Shower 4. Anticipate discharge home tomorrow
[2017-11-27] MEDS: ACETAMINOPHEN 1,000 MG/100 ML RTUPB IV SCH ×2 (05:37→11:40)
--- NOTE | 2017-11-27 14:29 | PDOC PROGRESS REPORT ---
Subjective Progress Note for:: 11/27/17 Reason For Visit: Z93.3 COLOSTOMY STATUS Physical Exam Vital Signs: Temp Pulse Resp BP Pulse Ox 98.3 F 84 16 135/59 H 99 11/27/17 11:22 11/27/17 11:22 11/27/17 11:22 11/27/17 11:22 11/27/17 11:22 Intake & Output 11/26/17 11/27/17 11/28/17 06:59 06:59 06:59 Intake Total 1700 2520 100 Output Total 1275 1250 Balance 425 1270 100 Weight 75.9 kg 78.3 kg GI/Abdominal exam: PRESENT: soft, other - Incisions clean, dry, intact. Results Laboratory Results: 10/29/17 11:02 10/29/17 11:02 Assessment & Plan - Diagnosis (1) Colostomy complication, unspecified Is this a current diagnosis for this admission?: Yes - Plan Summary Plan Summary: This is a 77-year-old female status post colostomy takedown with anastomosis. The patient is doing very well. She is ambulating. Tolerating liquids. I will advance her diet to regular. Patient is passing small amounts of flatus, but has not had a bowel movement yet. Continue ambulation. Increase activity. Rest of pulmonary toilet. Awaiting bowel movement.
[2017-11-27] MEDS: OXYCODONE-ACETAMINOPHEN 5-325 MG TABLET PO PRN (20:59)
--- NOTE | 2017-11-28 07:50 | PDOC DISCHARGE SUMMARY ---
General - Admit/Disc Date/PCP Admission Date/Primary Care Provider: 11/24/17 08:18 ANALILIA VALDIVIA MD Discharge Date: 11/28/17 - Discharge Diagnosis (1) Colostomy complication, unspecified Is this a current diagnosis for this admission?: Yes - Additional Information Discharge Diet: As Tolerated Discharge Activity: No Lifting Over 10 Pounds Home Medications: Docusate Sodium [Colace 100 mg Capsule] 100 mg PO BID 10/11/17 Multivit-Min/Iron Fum/Folic AC [Erbck-Rzvvgke-Uutpagob Tablet] 1 each PO DAILY 10/11/17 Glucosamine/D3/Boswellia Angi [Glucosamine Complex Tablet] 2 each PO DAILY 09/08 History of Present Illness History of Present Illness: JOURDAN PEREZ is a 77 year old female with a history of perforated diverticulitis, necessitating a Bianchi's procedure. Patient presented to [facility] requesting colostomy reversal. The patient was brought to the hospital on 11/24/2017, and the procedure was successfully performed. She was taken to the floor in stable condition. Hospital Course Hospital Course: After surgery, the patient was taken to the floor in stable condition. The patient progressed very well. She began passing flatus, and was started on a diet. On 11/28/2017 the patient was having bowel movements, ambulating, was comfortable on oral pain medications, and it was felt that she had reached maximal hospital benefit. At this time she was medically fit for discharge. Physical Exam Vital Signs: Temp Pulse Resp BP Pulse Ox 98.6 F 99 14 155/53 H 97 11/27/17 23:36 11/27/17 23:36 11/27/17 23:36 11/27/17 23:36 11/27/17 23:36 Intake & Output 11/27/17 11/28/17 11/29/17 06:59 06:59 06:59 Intake Total 2520 1307 Output Total 1250 200 Balance 1270 1107 Weight 78.3 kg 78.3 kg Results Laboratory Results: 10/29/17 11:02 10/29/17 11:02 Qualifiers - * PATIENT BEING DISCHARGED WITH ANY OF THE FOLLOWING DIAGNOSIS: No Plan Discharge Plan: Discharge home. Diet as tolerated. Activity: No lifting greater than 10 pounds x 6 weeks. Follow-up with Dr. Thompson at [facility] in 1 week. Toradol 10 mg p.o. every 6 hours as needed pain. Time Spent: Less than 30 Minutes
[2017-11-28 08:26] VITALS: BP 155/70
== END 2017-11-28 13:54 | disposition home or self-care (01) | DRG 331 ==
LOC: INOR 11-24 08:18 → 4S 11-24 16:15
PROVIDERS: ADMIT Surgery; ATTEND Surgery
PROC: 0DNP0ZZ Release Rectum, Open Approach (ICD-10-PCS; 2017-11-24)
PROC: 0DN80ZZ Release Small Intestine, Open Approach (ICD-10-PCS; 2017-11-24)
PROC: 0D7P8ZZ Dilation of Rectum, Via Natural or Artificial Opening Endoscopic (ICD-10-PCS; 2017-11-24)
PROC: 0D7N8ZZ Dilation of Sigmoid Colon, Via Natural or Artificial Opening Endoscopic (ICD-10-PCS; 2017-11-24)
PROC: 0DQM0ZZ Repair Descending Colon, Open Approach (ICD-10-PCS; principal; 2017-11-24 10:30)
DX: Z43.3 Encounter for attention to colostomy (principal); K66.0 Peritoneal adhesions (postprocedural) (postinfection); K62.89 Other specified diseases of anus and rectum; K59.09 Other constipation
CPT/HCPCS: 36415; 790; 80048; 85027; 90471; 90686; 93005; 93010; C9290; G0008; J0131; J0295; J0330; J1100; J1885; J2060; J2250; J2405; J2704; J3010; J3490; J7120

== ENCOUNTER 2018-04-03 11:18 | Emergency (ER) | payer MEDICARE, OTHER ==
[2018-04-03] MEDS ORDERED: ASPIRIN 81 MG TABLET, CHEWABLE PO ONE (11:46)
[2018-04-03] MEDS ORDERED: MAG HYDROX/AL HYDROX/SIMETH SUSP 30 ML UDCUP PO ONE (11:48)
[2018-04-03] MEDS ORDERED: METOCLOPRAMIDE HCL ORAL SOLN 10 MG/10 ML UDCUP PO ONE (11:48)
[2018-04-03] MEDS ORDERED: FAMOTIDINE INJ/PF 20 MG/2 ML SDV IV ONE (11:48)
[2018-04-03] MEDS ORDERED: LIDOCAINE 2% VISCOUS SOLN 20 ML UDCUP PO ONE (11:48)
--- NOTE | 2018-04-03 11:50 | ER Document Report ---
ED Medical Screen (RME) - General Chief Complaint: Chest Pain Stated Complaint: ABDOMINAL PAIN Time Seen by Provider: 04/03/18 11:38 Primary Care Provider: ANALILIA VALDIVIA MD [Primary Care Provider] - Follow up as needed Mode of Arrival: Ambulatory Information source: Patient Notes: 77-year-old female presents emergency department with complaints of epigastric a bdominal pain that started at 10 PM last night.'s been constant. She describes it as a burning sensation. No radiation. No alleviating or exacerbating factors. Patient is tried [place] as well as some baking soda without any relief of symptoms. She is having associated nausea and vomiting. She denies any diarrhea, constipation, fever, chills, dysuria, increased urgency, increased frequency, melena, hematochezia. Patient denies any hypertension, hyperlipidemia, diabetes, coronary artery disease. She does have a family history of coronary artery disease. I have greeted and performed a rapid initial assessment of this patient. A comprehensive ED assessment and evaluation of the patient, analysis of test results and completion of the medical decision making process will be conducted by additional ED providers. PHYSICAL EXAMINATION: GENERAL: No acute distress. HEAD: Atraumatic, normocephalic. EYES: Pupils equal round extraocular movements intact, conjunctiva are normal. ENT: Nares patent NECK: Normal range of motion LUNGS: No respiratory distress Musculoskeletal: Normal range of motion NEUROLOGICAL: Normal speech, normal gait. PSYCH: Normal mood, normal affect. SKIN: Warm, Dry, normal turgor, no rashes or lesions noted. TRAVEL OUTSIDE OF THE [place] IN LAST 30 DAYS: No - Related Data Allergies/Adverse Reactions: codeine Allergy (Mild, Verified 04/03/18 11:21) Generalized rash Sulfa (Sulfonamide Antibiotics) Allergy (Mild, Verified 04/03/18 11:21) Generalized rash Past Medical History - Past Medical History Cardiac Medical History: Denies: Hx Coronary Artery Disease, Hx Heart Attack, Hx Hypercholesterolemia, Hx Hypertension Pulmonary Medical History: Denies: Hx Asthma, Hx Bronchitis, Hx COPD, Hx Pneumonia, Hx Sleep Apnea Neurological Medical History: Denies: Hx Cerebrovascular Accident, Hx Seizures Renal/ Medical History: Denies: Hx Peritoneal Dialysis GI Medical History: Denies: Hx Crohn's Disease, Hx Gastroesophageal Reflux Disease, Hx Hiatal Hernia, Hx Irritable Bowel, Hx Liver Failure, Hx Pancreatitis, Hx Ulcer Musculoskeltal Medical History: Reports Hx Arthritis, Denies Hx Fibromyalgia, Denies Hx Muscular Dystrophy Traumatic Medical History: Denies: Hx Fractures Past Surgical History: Reports: Hx Bowel Surgery, Hx Colostomy, Other - left shoulder surgery by Dr Valdez 04/22/17.. Denies: Hx Appendectomy, Hx Section, Hx Cholecystectomy, Hx Coronary Artery Bypass Graft, Hx Gastric Bypass Surgery, Hx Herniorrhaphy, Hx Hysterectomy, Hx Mastectomy, Hx Pacemaker, Hx Tonsillectomy, Hx Tubal Ligation - Immunizations Hx Diphtheria, Pertussis, Tetanus Vaccination: Yes History of Influenza Vaccine for 11/2016 - 04/2017 Season: Yes Influenza Administration Date for 11/2016 - 04/2017 Season: 02/22/17 Physical Exam - Vital signs Vitals: Temp Pulse Resp BP Pulse Ox 98.4 F 100 16 163/79 H 99 04/03/18 11:33 04/03/18 11:33 04/03/18 11:33 04/03/18 11:33 04/03/18 11:33 Course - Vital Signs Vital signs: Temp Pulse Resp BP Pulse Ox 98.4 F 100 16 163/79 H 99 04/03/18 11:33 04/03/18 11:33 04/03/18 11:33 04/03/18 11:33 04/03/18 11:33 Doctor's Discharge - Discharge Referrals: ANALILIA VALDIVIA MD [Primary Care Provider] - Follow up as needed
[2018-04-03 12:39] LABS: ABSOLUTE EOSINOPHILS # (AUTO) 0.1 10^3/uL (0.0-0.6); ABSOLUTE LYMPHOCYTES (AUTO) 1.7 10^3/uL (0.5-4.7); ABSOLUTE MONOCYTES (AUTO) 0.4 10^3/uL (0.1-1.4); BASOPHILS % (AUTO) 0.4 % (0-2); EOSINOPHILS % (AUTO) 1.4 % (0-6); HEMATOCRIT 38.2 % (36.0-47.0); HEMOGLOBIN 13.1 g/dL (12.0-15.5); LYMPHOCYTES % (AUTO) 23.9 % (13-45); MEAN CORPUSCULAR HEMOGLOBIN 30.9 pg (27.0-33.4); MEAN CORPUSCULAR HGB CONC 34.3 g/dL (32.0-36.0); MEAN CORPUSCULAR VOLUME 90 fl (80-97); MONOCYTES % (AUTO) 5.6 % (3-13); PLATELET COUNT 222 10^3/uL (150-450); RED BLOOD COUNT 4.24 10^6/uL (3.72-5.28); RED CELL DISTRIBUTION WIDTH 13.5 % (11.5-14.0); SEGMENTED NEUTROPHILS % (AUTO) 68.7 % (42-78); TOTAL CELLS COUNTED % (AUTO) 100 %; WHITE BLOOD COUNT 7.2 10^3/uL (4.0-10.5)
[2018-04-03] MEDS ORDERED: SUCRALFATE SUSP 1 GM/10 ML UDCUP PO ONE (12:51)
[2018-04-03 12:52] LABS: ALANINE AMINOTRANSFERASE 22 U/L (9-52); ALBUMIN 4.9 g/dL (3.5-5.0); ALKALINE PHOSPHATASE 103 U/L (38-126); AMORPHOUS SEDIMENT,URINE TRACE /HPF; ANION GAP 12 (5-19); APPEARANCE,URINE CLOUDY; ASPARTATE AMINO TRANSFERASE 29 U/L (14-36); BILIRUBIN,DIRECT 0.2 mg/dL (0.0-0.4); BILIRUBIN,TOTAL 0.5 mg/dL (0.2-1.3); BILIRUBIN,URINE NEGATIVE (NEGATIVE); BLOOD UREA NITROGEN 13 mg/dL (7-20); CALCIUM 10.5 mg/dL (8.4-10.2); CARBON DIOXIDE 30 mmol/L (22-30); CHLORIDE 100 mmol/L (98-107); COLOR,URINE YELLOW; GLUCOSE 117 mg/dL (75-110); GLUCOSE, URINE NEGATIVE (NEGATIVE); KETONES,URINE NEGATIVE (NEGATIVE); LEUKOCYTE ESTERASE,URINE MODERATE (NEGATIVE); LIPASE 37.1 U/L (23-300); NITRITE,URINE POSITIVE (NEGATIVE); POTASSIUM 4.4 mmol/L (3.6-5.0); PROTEIN,URINE 30 mg/dL (NEGATIVE); SODIUM 142.1 mmol/L (137-145); URINE SPECIFIC GRAVITY 1.016; UROBILINOGEN,URINE NEGATIVE mg/dL (<2.0)
--- NOTE | 2018-04-03 12:55 | RADIOLOGY REPORT (SQ) ---
EXAM DESCRIPTION: CHEST SINGLE VIEW COMPLETED DATE/TIME: 04/03/2018 12:36 pm REASON FOR STUDY: chest pain COMPARISON: None. EXAM PARAMETERS: NUMBER OF VIEWS: One view. TECHNIQUE: Single frontal radiographic view of the chest acquired. RADIATION DOSE: NA LIMITATIONS: None. FINDINGS: LUNGS AND PLEURA. Bilateral apical pleural thickening. MEDIASTINUM AND HILAR STRUCTURES: No masses. Contour normal. HEART AND VASCULAR STRUCTURES: Normal heart size and aortic atherosclerosis. BONES: Degenerative arthritis of both shoulders. Left shoulder prosthesis not included. HARDWARE: None in the chest. IMPRESSION: NO ACUTE DISEASE. TECHNICAL DOCUMENTATION: JOB ID: [id number] [employer]- All Rights Reserved Reading location - IP/workstation name: [email or web address]
--- NOTE | 2018-04-03 14:13 | ER Document Report ---
ED General - General Chief Complaint: Chest Pain Stated Complaint: ABDOMINAL PAIN Time Seen by Provider: 04/03/18 11:38 Primary Care Provider: ANALILIA VALDIVIA MD [Primary Care Provider] - Follow up as needed Mode of Arrival: Ambulatory Notes: RME Provider note: 77-year-old female presents emergency department with complaints of epigastric abdominal pain that started at 10 PM last night.'s been constant. She describes it as a burning sensation. No radiation. No alleviating or exacerbating factors. Patient is tried [place] as well as some baking soda without any relief of symptoms. She is having associated nausea and vomiting. She denies any diarrhea, constipation, fever, chills, dysuria, increased urgency, increased frequency, melena, hematochezia. Patient denies any hypertension, hyperlipidemia, diabetes, coronary artery disease. She does have a family history of coronary artery disease. MY HPI: Patient states 2200 hrs. last evening she did eat a piece of cake and then shortly after that is when her epigastric pain started. Patient is denying any choking episodes. States she only vomited x1. Patient does continue to deny dysuria but is complaining of urinary frequency. Patient states she does have an appointment with her primary care provider this coming Wednesday for routine checkup. Patient does have an extensive history with a perforated abdomen on 05/03/2017. She does have extensive scars noted to her abdomen. Patient did have a colostomy reversal around the beginning of November 2017. Patient states she has followed up multiple times with her providers and they recently cleared her for generalized exercises. Patient states the burning sensation In her epigastric region does not radiate into her back is not tearing in any sensation and at this point in time is relatively dull. TRAVEL OUTSIDE OF THE [place] IN LAST 30 DAYS: No - Related Data Allergies/Adverse Reactions: codeine Allergy (Mild, Verified 04/03/18 11:21) Generalized rash Sulfa (Sulfonamide Antibiotics) Allergy (Mild, Verified 04/03/18 11:21) Generalized rash Past Medical History - General Information source: Patient - Social History Smoking Status: Unknown if Ever Smoked Family History: Reviewed & Not Pertinent, Other - Unobtainable Patient has suicidal ideation: No Patient has homicidal ideation: No - Past Medical History Cardiac Medical History: Denies: Hx Coronary Artery Disease, Hx Heart Attack, Hx Hypercholesterolemia, Hx Hypertension Pulmonary Medical History: Denies: Hx Asthma, Hx Bronchitis, Hx COPD, Hx Pneumonia, Hx Sleep Apnea Neurological Medical History: Denies: Hx Cerebrovascular Accident, Hx Seizures Renal/ Medical History: Denies: Hx Peritoneal Dialysis GI Medical History: Denies: Hx Crohn's Disease, Hx Gastroesophageal Reflux Disease, Hx Hiatal Hernia, Hx Irritable Bowel, Hx Liver Failure, Hx Pancreatitis, Hx Ulcer Musculoskeletal Medical History: Reports Hx Arthritis, Denies Hx Fibromyalgia, Denies Hx Muscular Dystrophy Traumatic Medical History: Denies: Hx Fractures Past Surgical History: Reports: Hx Bowel Surgery, Hx Colostomy, Other - left shoulder surgery by Dr Valdez 04/22/17.. Denies: Hx Appendectomy, Hx Section, Hx Cholecystectomy, Hx Coronary Artery Bypass Graft, Hx Gastric Bypass Surgery, Hx Herniorrhaphy, Hx Hysterectomy, Hx Mastectomy, Hx Pacemaker, Hx Tonsillectomy, Hx Tubal Ligation - Immunizations Hx Diphtheria, Pertussis, Tetanus Vaccination: Yes Review of Systems - Review of Systems Constitutional: No symptoms reported EENT: No symptoms reported Cardiovascular: No symptoms reported Respiratory: No symptoms reported Gastrointestinal: See HPI Genitourinary: See HPI Female Genitourinary: No symptoms reported Musculoskeletal: No symptoms reported Skin: No symptoms reported Hematologic/Lymphatic: No symptoms reported Neurological/Psychological: No symptoms reported Physical Exam - Vital signs Vitals: Temp Pulse Resp BP Pulse Ox 98.4 F 100 16 163/79 H 99 04/03/18 11:33 04/03/18 11:33 04/03/18 11:33 04/03/18 11:33 04/03/18 11:33 - Notes Notes: GENERAL: Alert, interacts well. No acute distress. HEAD: Normocephalic, atraumatic. EYES: Pupils equal, round, and reactive to light. Extraocular movements intact. ENT: Oral mucosa moist, tongue midline. NECK: Full range of motion. Supple. Trachea midline. LUNGS: Clear to auscultation bilaterally, no wheezes, rales, or rhonchi. No respiratory distress. HEART: Regular rate and rhythm. No murmur ABDOMEN: Soft, Non-distended. Bowel sounds present in all 4 quadrants. Well- healed vertical scar noted entire abdomen up into the patient's epigastric region. No Keller sign noted, no McBurney's point tenderness. Dull generalized epigastric pain that radiates to her left upper quadrant. EXTREMITIES: Moves all 4 extremities spontaneously. No edema, normal radial and dorsalis pedis pulses bilaterally. No cyanosis. BACK: no cervical, thoracic, lumbar midline tenderness. No saddle anesthesia, normal distal neurovascular exam. NEUROLOGICAL: Alert and oriented x3. Normal speech. cranial nerves II through XII grossly intact PSYCH: Normal affect, normal mood. SKIN: Warm, dry, normal turgor. No rashes or lesions noted. Course - Re-evaluation Re-evalutation: 04/03/18 14:12 Patient's labs show no signs of leukocytosis, no signs of anemia, patient's CMP is relatively within normal limits. Patient's initial troponin was negative her EKG shows a sinus rhythm with a heart rate of 95, QTC [address] segment elevations or depressions noted. Troponin and EKG ordered by RME provider due to patient's age and epigastric pain complaint. Initially after RME treatments she states that she feels a little bit better. I have given her Carafate and she states she feels a lot better after Carafate. She continues with no vomiting in the emergency room. Her urine does show signs of infection which is consistent with her urinary frequency and vomiting. We will treat for urinary tract infection. 04/03/18 14:16 Patient was noted to be hypertensive in the emergency department. States she routinely follows up with her primary care provider especially since her recent abdominal surgeries. Patient denies headache, blurred vision, dizziness. Discussed close follow-up with primary care provider. Patient states she Alessandro has an appointment this coming week. - Vital Signs Vital signs: Temp Pulse Resp BP Pulse Ox 98.4 F 100 11 L 178/88 H 98 04/03/18 11:33 04/03/18 11:33 04/03/18 13:01 04/03/18 14:13 04/03/18 13:01 - Laboratory Result Diagrams: 04/03/18 11:56 04/03/18 11:56 Laboratory results interpreted by me: 04/03/18 04/03/18 11:56 11:56 Glucose 117 H Calcium 10.5 H Urine Protein 30 H Urine Blood LARGE H Urine Nitrite POSITIVE H Ur Leukocyte Esterase MODERATE H Discharge - Discharge Clinical Impression: Epigastric abdominal pain Urinary tract infection Qualifiers: Urinary tract infection type: acute cystitis Hematuria presence: with hematuria Qualified Code(s): N30.01 - Acute cystitis with hematuria Gastritis Qualifiers: Gastritis type: unspecified gastritis Chronicity: acute Gastritis bleeding: without bleeding Qualified Code(s): K29.00 - Acute gastritis without bleeding Condition: Stable Disposition: HOME, SELF-CARE Instructions: Cephalexin ([facility]), Reflux Disease (GERD) ([facility]), Urinary Tract Infection ([facility]), Vomiting ([facility]) Additional Instructions: As we discussed you have been seen and treated in the emergency department for your generalized epigastric pain and urinary tract infection. Please make sure you take medications as prescribed. Please also follow-up with your primary care provider in the next 24-48 hours. Please immediately return to the emergency room should he have any other concerning symptoms. Prescriptions: Cephalexin Monohydrate [Keflex 500 mg Capsule] 500 mg PO BID 7 Days #14 capsule Sucralfate [Carafate 1 gm Tablet] 1 gm PO QID #20 tablet Forms: Elevated Blood Pressure Referrals: ANALILIA VALDIVIA MD [Primary Care Provider] - Follow up as needed
[2018-04-03 14:21] VITALS: BP 169/91
--- NOTE | 2018-04-03 23:54 | EKG REPORT ---
SEVERITY:- NORMAL ECG - SINUS RHYTHM : Confirmed by: Sheba Faye 03-Apr-2018 23:53:36
== END 2018-04-03 14:45 | disposition home or self-care (01) ==
LOC: ER 11:18
DX: K29.00 Acute gastritis without bleeding (principal); N30.01 Acute cystitis with hematuria; R10.13 Epigastric pain; R11.2 Nausea with vomiting, unspecified; I10 Essential (primary) hypertension; Z98.890 Other specified postprocedural states; Z88.5 Allergy status to narcotic agent; Z88.2 Allergy status to sulfonamides
CPT/HCPCS: 93005; 99284; 96374; 36415; 87086; 83690; 85025; 87088; 80053; 81001; 84484; 87186; 71045; 93010; A9270 ×2; J3490; S0028